=== PATIENT | female | born 1965 | race Caucasian/White ===

== ENCOUNTER 2021-01-18 16:59 | Outpatient (RCR) | payer BC, SELFPAY ==
[2016-12-01 12:44] VITALS: BMI 32.2
[2021-01-18] MEDS: COVID-19 VACC, MRNA(PFIZER)/PF 30 MCG/0.3 ML SYRINGE IM (14:48)
[2021-02-08] MEDS: COVID-19 VACC, MRNA(PFIZER)/PF 30 MCG/0.3 ML SYRINGE IM (14:26)
== END 2021-01-18 23:59 ==
LOC: IMMUN 16:59
PROVIDERS: PCP Family Medicine; Visit Provider Family Medicine
DX: Z23 Encounter for immunization (principal)
CPT/HCPCS: 0001A; 0002A; 91300

== ENCOUNTER → 2021-09-19 09:44 | Outpatient (CLI) | payer OTHER, SELFPAY ==
[2021-09-19 13:02] LABS: Anion Gap 5 (5-15); BUN 16 mg/dL (7-18); BUN/Creat Ratio 19.1 RATIO (10-20); Calcium,Total 9.1 mg/dL (8.5-10.1); Chloride 110 mmol/L (98-107); Cholesterol 140 mg/dL (200); Creatinine, Serum 0.84 mg/dL (0.55-1.02); EST Glomerular Filtration Rate 74 mL/min (>60); Est Glom Filt Rate - Afr Amer 90 mL/min (>60); Glucose 101 mg/dL (74-106); High Density Lipoprotein 57 mg/dL; Potassium 3.8 mmol/L (3.5-5.1); Sodium Level 141 mmol/L (136-145); Triglycerides 63 mg/dL; Very Low Density Lipoprotein 13 mg/dL (5-40)
== END ==
PROVIDERS: PCP Family Medicine; Referring Provider Family Medicine; Visit Provider Family Medicine
DX: I10 Essential (primary) hypertension (principal)
CPT/HCPCS: 36415; 80048; 80061

== ENCOUNTER → 2022-04-02 | Outpatient (CLI) | payer OTHER, SELFPAY ==
[2022-04-02 12:47] LABS: Anion Gap 3 (5-15); BUN 22 mg/dL (7-18); Calcium,Total 9.2 mg/dL (8.5-10.1); Chloride 109 mmol/L (98-107); Creatinine, Serum 0.96 mg/dL (0.55-1.02); EST Glomerular Filtration Rate 63 mL/min (>60); Est Glom Filt Rate - Afr Amer 77 mL/min (>60); Glucose 100 mg/dL (74-106); Potassium 4.1 mmol/L (3.5-5.1); Sodium Level 140 mmol/L (136-145)
== END | disposition home or self-care (01) ==
LOC: MTLAB 10:35
PROVIDERS: PCP Family Medicine; Referring Provider Family Medicine; Visit Provider Family Medicine
DX: Z00.00 Encounter for general adult medical examination without abnormal findings (principal)
CPT/HCPCS: 36415; 80048

== ENCOUNTER → 2022-04-24 | Outpatient (CLI) | payer OTHER, SELFPAY ==
[2022-04-29 16:33] LABS: HPV HC, High Risk N
== END | disposition home or self-care (01) ==
LOC: LABSPEC 15:34
PROVIDERS: PCP Family Medicine; Referring Provider Family Medicine; Visit Provider Nurse Practitioner Family
DX: Z12.4 Encounter for screening for malignant neoplasm of cervix (principal)
CPT/HCPCS: 87624; 88175; G0145

== ENCOUNTER → 2022-08-19 | Outpatient (CLI) | payer OTHER, SELFPAY ==
--- NOTE | 2022-08-19 11:55 | BI_ITS ---
MAMMOGRAPHY - BILATERAL SCREENING REASON FOR EXAM: Female, 57 years old. Routine annual screening examination. PERTINENT HISTORY: Aunt with breast cancer. TECHNIQUE: Digital bilateral breast jaymie (3D mammographic acquisition) in the CC and MLO projections. 2-D mediolateral oblique (MLO) and craniocaudad (CC) views of both breasts were obtained. CAD: Full Field Digital Mammography with Computer Added Detection was performed. COMPARISON: Comparison is made with prior examination 12/28/2020. FINDINGS: Breast Composition: The breasts are almost entirely fatty. There are no dominant masses or suspicious calcifications. No other significant abnormalities are identified. There has been no significant change since the prior study. BI/SCRN MAMM (CAD)W/JAYMIE BILAT IMPRESSION: Stable bilateral screening mammogram. Yearly follow-up mammogram recommended. (A) ASSESSMENT CATEGORY: BIRADS Category 1: Negative. A letter regarding these results will be sent to the patient by the facility within 30 days. Approximately 10% of breast cancers are not detected by mammography. A normal mammogram should not delay biopsy of a clinically suspicious abnormality. [id number] Electronically Signed: Samuel Bauer MD at 12:38 EDT ,
== END | disposition home or self-care (01) ==
LOC: OPBI 11:54
PROVIDERS: PCP Family Medicine; Visit Provider Family Medicine
DX: Z12.31 Encounter for screening mammogram for malignant neoplasm of breast (principal); Z80.3 Family history of malignant neoplasm of breast
CPT/HCPCS: 77063; 77067

== ENCOUNTER → 2022-10-30 | Outpatient (CLI) | payer OTHER, SELFPAY ==
[2022-10-30 13:02] LABS: Anion Gap 6 (5-15); BUN 14 mg/dL (7-18); BUN/Creat Ratio 15.4 RATIO (10-20); Chloride 106 mmol/L (98-107); Cholesterol 171 mg/dL (200); Creatinine, Serum 0.91 mg/dL (0.55-1.02); EST Glomerular Filtration Rate 67 mL/min (>60); Est Glom Filt Rate - Afr Amer 81 mL/min (>60); Glucose 104 mg/dL (74-106); High Density Lipoprotein 67 mg/dL; Potassium 3.7 mmol/L (3.5-5.1); Sodium Level 140 mmol/L (136-145); Triglycerides 57 mg/dL; Very Low Density Lipoprotein 11 mg/dL (5-40)
== END | disposition home or self-care (01) ==
LOC: MTLAB 09:33
PROVIDERS: PCP Family Medicine; Referring Provider Family Medicine; Visit Provider Family Medicine
DX: Z00.00 Encounter for general adult medical examination without abnormal findings (principal)
CPT/HCPCS: 36415; 80048; 80061

== ENCOUNTER → 2022-11-11 | Outpatient (CLI) | payer OTHER, SELFPAY ==
[2022-11-11 10:40] LABS: Bacteria 0 SEEN /hpf (None Seen); Mucous, Urine 0 SEEN /hpf (<or=2+)
[2022-11-11 12:23] LABS: Color, Urine Straw (Yellow); Glucose, Dipstick Normal (Normal); Ketone-Dipstick Negative (Negative); Leukocyte Esterase-Dipstick 25 /ul (Negative); Nitrite-Dipstick Negative (Negative); Occult Blood-Urine 25 /ul (Negative); Protein-Dipstick Negative (Negative); Specific Gravity, Urine 1.005 (1.002-1.030); Urine Bilirubin Dipstick Negative (Negative); Urine Clarity Sl. Cloudy (Clear); Urine Urobilinogen Normal (Normal)
[2022-11-11 12:37] LABS: Red Blood Cells-Urine 0-5 SEEN /hpf (0-5); Squamous Epithelial Cells - UA 0-5 SEEN /hpf (5-10); White Blood Cells 0-5 SEEN /hpf (0-5)
== END | disposition home or self-care (01) ==
PROVIDERS: PCP Family Medicine; Referring Provider Family Medicine; Visit Provider Family Medicine
DX: R39.9 Unspecified symptoms and signs involving the genitourinary system (principal)
CPT/HCPCS: 81001; 87086; 87088

== ENCOUNTER → 2023-05-12 | Outpatient (CLI) | payer OTHER, SELFPAY ==
[2023-05-12 10:26] LABS: AST(SGOT) 29 U/L (15-37); Alanine Aminotransfer ALT/SGPT 34 U/L (13-56); Albumin, Serum 3.8 g/dL (3.2-5.0); Alkaline Phosphatase 67 U/L (45-117); Anion Gap 4 (5-15); BUN 15 mg/dL (7-18); BUN/Creat Ratio 15.3 RATIO (10-20); Chloride 106 mmol/L (98-107); Cholesterol 141 mg/dL (200); Creatinine, Serum 0.98 mg/dL (0.55-1.02); EST Glomerular Filtration Rate 62 mL/min (>60); Est Glom Filt Rate - Afr Amer 75 mL/min (>60); Globulin 3.8 g/dL (2.2-4.2); Glucose 99 mg/dL (74-106); High Density Lipoprotein 67 mg/dL; Potassium 3.9 mmol/L (3.5-5.1); Protein, Total 7.6 g/dL (6.4-8.2); Sodium Level 136 mmol/L (136-145); Triglycerides 39 mg/dL; Very Low Density Lipoprotein 8 mg/dL (5-40)
== END | disposition home or self-care (01) ==
LOC: MTLAB 08:37
PROVIDERS: PCP Family Medicine; Referring Provider Family Medicine; Visit Provider Family Medicine
DX: I10 Essential (primary) hypertension (principal)
CPT/HCPCS: 36415; 80053; 80061

== ENCOUNTER → 2023-10-13 | Outpatient (CLI) | payer OTHER, SELFPAY ==
--- NOTE | 2023-10-13 10:22 | BI_ITS ---
MAMMOGRAPHY - BILATERAL SCREENING REASON FOR EXAM: Female, 58 years old. Routine annual screening examination. PERTINENT HISTORY: Aunt with breast cancer. TECHNIQUE: Digital bilateral breast jaymie (3D mammographic acquisition) in the CC and MLO projections. 2-D mediolateral oblique (MLO) and craniocaudad (CC) views of both breasts were obtained. CAD: Full Field Digital Mammography with Computer Added Detection was performed. COMPARISON: Comparison is made with prior study August 19, 2022. FINDINGS: Breast Composition: The breasts are almost entirely fatty. There are no dominant masses or suspicious calcifications. No other significant abnormalities are identified. There has been no significant change since the prior study. BI/SCRN MAMM (CAD)W/JAYMIE BILAT IMPRESSION: Stable bilateral screening mammogram. Yearly follow-up mammogram recommended. (A) ASSESSMENT CATEGORY: BIRADS Category 1: Negative. A letter regarding these results will be sent to the patient by the facility within 30 days. Approximately 10% of breast cancers are not detected by mammography. A normal mammogram should not delay biopsy of a clinically suspicious abnormality. [id number] Electronically Signed: Samuel Bauer MD at 11:39 EST ,
== END | disposition home or self-care (01) ==
LOC: OPBI 10:21
PROVIDERS: PCP Family Medicine; Referring Provider Family Medicine; Visit Provider Family Medicine
DX: Z12.31 Encounter for screening mammogram for malignant neoplasm of breast (principal); Z80.3 Family history of malignant neoplasm of breast
CPT/HCPCS: 77063; 77067

== ENCOUNTER → 2023-11-14 | Outpatient (CLI) | payer OTHER, SELFPAY ==
--- OUTSIDE RECORDS SUMMARY | 2023-11-14 08:58 | XMS RPT_ITS | CCD ---
Author Name Unknown Address [address] [facility] [address] [place] [address] Organization [facility] Care Team Providers Care Data Steward Name Role Phone YINA, LETICIA DPM Admitting Unavailable HORN, LETICIA DPM Attending Unavailable HORN, LETICIA DPM Primary Care Unavailable CEBUL, CRISTOPHER III Consulting Unavailable PROVIDER, UNKNOWN Consulting Unavailable HORN, LETICIA DPM Admitting Unavailable HORN, LETICIA DPM Attending Unavailable HORN, LETICIA DPM Primary Care Unavailable CEBUL, CRISTOPHER III Consulting Unavailable PROVIDER, UNKNOWN Consulting Unavailable BLANQUITA AMADOR Admitting Unavailable BLANQUITA AMADOR Attending Unavailable BLANQUITA AMADOR Primary Care Unavailable CEBUL, CRISTOPHER III Consulting Unavailable PROVIDER, UNKNOWN Consulting Unavailable Problems Problem Classification Problem Date Documented Da te Episodic/Chronic Immunizations and screening for infectious disease (3 sources) Encounter for screening for other viral diseases; Translations: [Encounter for screening for other viral diseases] Onset: 08-10-2020 Episodic Results Test Name Value Interpretation Reference Range Facil ity Encounters Encounter Date Encounter Type Care Provider Facility Start: 08-10-2020 End: 08-10-2020 Patient encounter procedure BLANQUITA AMADOR [facility] Start: 10-15-2019 End: 10-15-2019 Patient encounter procedure LETICIA ALEXIS [facility] Start: 10-07-2019 End: 10-07-2019 Patient encounter procedure LETICIA DPM [facility] Payers Date Payer Category Payer Unknown [id number] 1965 Unknown [id number] 1965 Unknown [id number] Unknown [id number] Clinical Note 09-18-2021 Note Date & Type Note Facility 09-18-2021 Note Patient Outreach ([facility]) DANIELHYACINTH CAREY ([id number]) 1965 F Date Time Provider Department 09/18/21 NELY NEELY During your visit today, we recorded the following information about you: Nely Neely Population Health Navigator 09/18/2021 10:44 AM Signed POPULATION HEALTH NAVIGATION OUTREACH Action/ I left a voice mail and a my chart message re: pcp No care everywhere Contact made with patient or family member? NO Pt identified by name and : NO Outreach Outcome/Action Unable to reach patient: Left message [employer] message sent Reason for Outreach Attribution: Provider Off-boarding Payer: Payor: MP / Plan: BLUE ACCESS PPO / Product Type: PPO / Care Gap Reviewed:: Reminder: Reminder note to check Health Maintenance for items below Health Maintenance items due: COVID-19 VACCINE(1) Never done SHINGRIX VACCINE(1 of 2) Never done INFLUENZA(1) due on 07/04/2021 Advanced Directives Completed: Have you ever planned for future healthcare decisions with a power of patent prosecution attorney, living will, or advance directives? No. Please bring a copy to your next appointment or email to Referrals: N/A Message Sent to Practice: NO Navigation Signature: Nely Neely Population Health Navigator September 18, 2021 10:44 AM Nely Neely Population Health Navigator 09/18/2021 11:43 AM Signed POPULATION HEALTH NAVIGATION OUTREACH Action/ Patient called back and states she has another pcp since her insurance has changed Updated pcp field Contact made with patient or family member? YES Pt identified by name and : YES Outreach Outcome/Action Spoke to patient or caregiver: PCP confirmed / updated Patient declined Reason for Outreach Attribution: Provider Off-boarding Payer: Payor: MP / Plan: BLUE ACCESS PPO / Product Type: PPO / Care Gap Reviewed:: Reminder: Reminder note to check Health Maintenance for items below Health Maintenance items due: COVID-19 VACCINE(1) Never done SHINGRIX VACCINE(1 of 2) Never done INFLUENZA(1) due on 07/04/2021 Advanced Directives Completed: Have you ever planned for future healthcare decisions with a power of patent prosecution attorney, living will, or advance directives? No. Please bring a copy to your next appointment or email to Referrals: N/A Message Sent to Practice: NO Navigation Signature: Nely Neely Population Health Navigator September 18, 2021 11:42 AM Allergies As of Date: 09/18/2021 Noted Allergy Reaction EFFEXOR (VENLAFAXINE ANALOGUES) 04/20/2018 1 - Mental Status Change ERYTHROMYCIN 10/09/2005 8 - GI Upset PRILOSEC (OMEPRAZOLE) 10/09/2005 Comments: abdominal bloating psuedoephrine [Other] 10/09/2005 TCN (TETRACYCLINES) 10/09/2005 Comments: yeast infections Date Reviewed: 01/11/2021 Reviewed by: Jayna Payton MA - Fully Assessed Reason for Visit: Population Health Navigation Outreach [3910] Cmt: Offboarding Prescriptions as of 09/18/2021 - pantoprazole DR (PROTONIX) 20 mg tablet Take 1 tablet by mouth daily before breakfast. Take on empty stomach, 1/2 hr before meal. Process through [facility], not insurance - lisinopril (ZESTRIL, PRINIVIL) 5 mg tablet Take 1 tablet by mouth once daily. - acetaminophen (TYLENOL ORAL) Take by mouth as needed. Meds Comments as of 01/11/2021: OTC advil PRN January 11, 2021 Jayna Payton MA Problem List As Of Date 09/18/2021 Noted Resolved Abdominal pain, right upper quadrant [R10.11] 12/08/2006 02/09/2013 BENIGN HYPERTENSION [I10] 12/08/2006 HIATAL HERNIA [K44.9] 01/15/2007 GASTRITIS ANTRAL( W/O Hemorrhage) [K29.60] 01/15/2007 05/08/2019 Abdominal pain, right lower quadrant [R10.31] 01/15/2007 02/09/2013 DYSMETABOLIC SYNDROME X [E88.81] 12/30/2007 PERIORAL DERMATITIS///ROSACEA [L71.9] 02/23/2008 11/02/2015 Other acne [L70.8] 02/23/2008 05/08/2019 Seborrheic dermatitis, unspecified [L21.9] 02/23/2008 11/02/2015 Contact dermatitis and other eczema, due to uns*02/23/2008 11/02/2015 Other chronic dermatitis due to solar radiation*02/23/2008 11/02/2015 SOLAR LENGINES///DYSCHROMIA OTHER [L81.9] 02/23/2008 11/02/2015 Candidiasis of vulva and vagina [B37.3] 02/23/2008 02/09/2013 Potassium deficiency [E87.6] 01/11/2011 05/08/2019 GERD (gastroesophageal reflux disease) [K21.9] 09/10/2011 Obesity, Class I, BMI 30-34.9 [E66.9] 04/17/2018 Retinal hemorrhage of right eye [H35.61] 05/08/2019 Thoracic outlet syndrome [G54.0] 01/11/2021 Encounter Status:Closed by CHIN POPULATION HEALTH NAVIGATORNELY on 09/18/21 [facility] Progress note 09-18-2021 Note Date & Type Note Facility 09-18-2021 Note HNO ID: [id number] Author: Nely Andino Health Navigator Service: ? Author Type: ? Type: Progress Notes Filed: 09/18/2021 11:43 AM Note Text: POPULATION HEALTH NAVIGATION OUTREACH Action/FYI Patient called back and states she has another pcp since her insurance has changed Updated pcp field Contact made with patient or family member? YES Pt identified by name and : YES Outreach Outcome/Action Spoke to patient or caregiver: PCP confirmed / updated Patient declined Reason for Outreach Attribution: Provider Off-boarding Payer: Payor: ANTHEM / Plan: BLUE ACCESS PPO / Product Type: PPO / Care Gap Reviewed:: Reminder: Reminder note to check Health Maintenance for items below Health Maintenance items due: COVID-19 VACCINE(1) Never done SHINGRIX VACCINE(1 of 2) Never done INFLUENZA(1) due on 07/04/2021 Advanced Directives Completed: Have you ever planned for future healthcare decisions with a power of patent prosecution attorney, living will, or advance directives? No. Please bring a copy to your next appointment or email to Referrals: N/A Message Sent to Practice: NO Navigation Signature: Nely Neely Population Health Navigator September 18, 2021 11:42 AM [facility] Progress note 09-18-2021 Note Date & Type Note Facility 09-18-2021 Note HNO ID: [id number] Author: Nely Neely Population Health Navigator Service: ? Author Type: ? Type: Progress Notes Filed: 09/18/2021 10:44 AM Note Text: POPULATION HEALTH NAVIGATION OUTREACH Action/FYI I left a voice mail and a my chart message re: pcp No care everywhere Contact made with patient or family member? NO Pt identified by name and : NO Outreach Outcome/Action Unable to reach patient: Left message [employer] message sent Reason for Outreach Attribution: Provider Off-boarding Payer: Payor: MP / Plan: BLUE ACCESS PPO / Product Type: PPO / Care Gap Reviewed:: Reminder: Reminder note to check Health Maintenance for items below Health Maintenance items due: COVID-19 VACCINE(1) Never done SHINGRIX VACCINE(1 of 2) Never done INFLUENZA(1) due on 07/04/2021 Advanced Directives Completed: Have you ever planned for future healthcare decisions with a power of patent prosecution attorney, living will, or advance directives? No. Please bring a copy to your next appointment or email to [email or web address] Referrals: N/A Message Sent to Practice: NO Navigation Signature: Nely Neely Population Health Navigator September 18, 2021 10:44 AM [facility] Clinical Note 01-15-2021 Note Date & Type Note Facility 01-15-2021 Note Patient Outreach ([facility]) DANIELHYACINTH Peralta ([id number]) 1965 F Date Time Provider Department 01/15/21 BRIANNA DARBY (PSS) IN[facility] During your visit today, we recorded the following information about you: Brianna Darby Pss 01/15/2021 10:35 AM Signed POPULATION HEALTH NAVIGATION OUTREACH Action/FYI Mamm completed 12/28/20. No need to contact. Contact made with patient or family member? NO Pt identified by name and : NO Outreach Outcome/Action Mamm completed 12/28/20. Reason for Outreach Care Gap or Scheduling/Wellness visits Payer: Payor: MP / Plan: [employer] ACCESS PPO / Product Type: PPO / Care Gap Reviewed:: Breast Cancer screening Reminder: Reminder note to check Health Maintenance for items below Health Maintenance items due: INFLUENZA(1) due on 07/04/2020 Advanced Directives Completed: Have you ever planned for future healthcare decisions with a power of patent prosecution attorney, living will, or advance directives? Referrals: Message Sent to Practice: Navigation Signature: Brianna Darby Pss January 15, 2021 10:34 AM Allergies As of Date: 01/15/2021 Noted Allergy Reaction EFFEXOR (VENLAFAXINE ANALOGUES) 04/20/2018 1 - Mental Status Change ERYTHROMYCIN 10/09/2005 8 - GI Upset PRILOSEC (OMEPRAZOLE) 10/09/2005 Comments: abdominal bloating psuedoephrine [Other] 10/09/2005 TCN (TETRACYCLINES) 10/09/2005 Comments: yeast infections Date Reviewed: 01/11/2021 Reviewed by: Jayna Payton MA - Fully Assessed Reason for Visit: Population Health Navigation Outreach [3910] Cmt: deferred care Prescriptions as of 01/15/2021 Sig: PANTOPRAZOLE 20 MG TABLET,DEL* Take 1 tablet by mouth daily * LISINOPRIL 5 MG TABLET Take 1 tablet by mouth once d* TYLENOL ORAL Take by mouth as needed. Problem List As Of Date 01/15/2021 Noted Resolved Abdominal pain, right upper quadrant [R10.11] 12/08/2006 02/09/2013 BENIGN HYPERTENSION [I10] 12/08/2006 HIATAL HERNIA [K44.9] 01/15/2007 GASTRITIS ANTRAL( W/O Hemorrhage) [K29.60] 01/15/2007 05/08/2019 Abdominal pain, right lower quadrant [R10.31] 01/15/2007 02/09/2013 DYSMETABOLIC SYNDROME X [E88.81] 12/30/2007 PERIORAL DERMATITIS///ROSACEA [L71.9] 02/23/2008 11/02/2015 Other acne [L70.8] 02/23/2008 05/08/2019 Seborrheic dermatitis, unspecified [L21.9] 02/23/2008 11/02/2015 Contact dermatitis and other eczema, due to uns*02/23/2008 11/02/2015 Other chronic dermatitis due to solar radiation*02/23/2008 11/02/2015 SOLAR LENGINES///DYSCHROMIA OTHER [L81.9] 02/23/2008 11/02/2015 Candidiasis of vulva and vagina [B37.3] 02/23/2008 02/09/2013 Potassium deficiency [E87.6] 01/11/2011 05/08/2019 GERD (gastroesophageal reflux disease) [K21.9] 09/10/2011 Obesity, Class I, BMI 30-34.9 [E66.9] 04/17/2018 Retinal hemorrhage of right eye [H35.61] 05/08/2019 Thoracic outlet syndrome [G54.0] 01/11/2021 Encounter Status:Closed by BRIANNA LANDRY on 01/15/21 [facility] Progress note 01-15-2021 Note Date & Type Note Facility 01-15-2021 Note HNO ID: [id number] Author: Brianna Espinoza Service: ? Author Type: ? Type: Progress Notes Filed: 01/15/2021 10:35 AM Note Text: POPULATION HEALTH NAVIGATION OUTREACH Action/FYI Mamm completed 12/28/20. No need to contact. Contact made with patient or family member? NO Pt identified by name and : NO Outreach Outcome/Action Mamm completed 12/28/20. Reason for Outreach Care Gap or Scheduling/Wellness visits Payer: Payor: MP / Plan: BLUE ACCESS PPO / Product Type: PPO / Care Gap Reviewed:: Breast Cancer screening Reminder: Reminder note to check Health Maintenance for items below Health Maintenance items due: INFLUENZA(1) due on 07/04/2020 Advanced Directives Completed: Have you ever planned for future healthcare decisions with a power of patent prosecution attorney, living will, or advance directives? Referrals: Message Sent to Practice: Navigation Signature: Brianna Darby Pss January 15, 2021 10:34 AM [facility] Progress note 01-11-2021 Note Date & Type Note Facility 01-11-2021 Note HNO ID: [id number] Author: Cristopher Ly III Service: ? Author Type: Physician Type: Progress Notes Filed: 01/11/2021 12:47 PM Note Text: SUBJECTIVE: This is a 55 year old female that is here today for Chronic Medical Conditions. and wellness exam. 1. hypertension--tolerates medication well 2. impaired fasting glucose. . 3. Mother has severe diabetes mellitus with multiple co-morbidities. 4. pain from R shoulder radiating to distal to R elbow. Some numbness R hand, tiffany 4th and 5th fingers. 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 Hx of R thoracic syndrome. 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 Hx of R thoracic outlet syndrome. No neck pain. 5. GERD exacerbation after spicy food--resolved now and taking protonix PAST MEDICAL HISTORY Diagnosis Date - Benign hypertensive heart disease without heart failure - Cholecystitis 12/08/2006 - Helicobacter pylori gastritis 2002 - Hypertension - Potassium deficiency - Retinal hemorrhage of right eye 05/08/2019 Current Outpatient Medications on File Prior to Visit Medication Sig - pantoprazole DR (PROTONIX) 20 mg tablet Take 1 tablet by mouth daily before breakfast. Take on empty stomach, 1/2 hr before meal. Process through [facility], not insurance - lisinopril (ZESTRIL, PRINIVIL) 5 mg tablet Take 1 tablet by mouth once daily. - acetaminophen (TYLENOL ORAL) Take by mouth as needed. No current facility-administered medications on file prior to visit. FAMILY HISTORY Problem Relation Age of Onset - Diabetes Mother - Hypertension Mother - other (myocardial infarction) Mother 75 quad bypass 02/04/13 - Hypertension Father - DVT Father - Osteoporosis Brother - No Known Problems Son - Breast Cancer Paternal Aunt - No Known Problems Maternal Grandmother - Diabetes Maternal Grandfather - Hypertension Maternal Grandfather - Stroke Maternal Grandfather - Hypertension Paternal Grandmother - No Known Problems Paternal Grandfather Social History Tobacco Use - Smoking status: Never Smoker - Smokeless tobacco: Never Used Substance Use Topics - Alcohol use: Yes Comment: socially - Drug use: No BP 122/70 Pulse 76 Resp 16 Ht 165.1 cm (5' 5 ) Wt 87.5 kg (193 lb) LMP 08/14/2015 BMI 32.12 kg/m? . OBJECTIVE: APPEARANCE Well appearing, alert, in no acute distress, well-hydrated, well nourished. NECK Supple, no adenopathy; thyroid symmetric, normal size, no bruits HEART RRR with normal S1 and S2, no murmurs, no gallops, no JVD appreciated LUNG clear to auscultation ABDOMEN bowel sounds normoactive, no bruits, soft, non-tender, non-distended, without organomegaly or palpable masses, no tenderness to palpation EXTREMITIES pain post R shoulder when R palm placed on top of L shoulder NEURO Awake, alert and oriented x 3, Normal gait and No involuntary motions. Lab Results for HYACINTH CORRIGAN ( ) as of 01/11/2021 10:19 Ref. Range 01/03/2021 09:22 Sodium Latest Ref Range: 136 - 144 mmol/L 142 Potassium Latest Ref Range: 3.7 - 5.1 mmol/L 4.2 Chloride Latest Ref Range: 97 - 105 mmol/L 106 (H) CO2 Latest Ref Range: 22 - 30 mmol/L 28 BUN Latest Ref Range: 7 - 21 mg/dL 20 Creatinine Latest Ref Range: 0.58 - 0.96 mg/dL 0.86 Glucose Latest Ref Range: 74 - 99 mg/dL 104 (H) Protein, Total Latest Ref Range: 6.3 - 8.0 g/dL 7.4 Calcium Latest Ref Range: 8.5 - 10.2 mg/dL 9.4 Albumin Latest Ref Range: 3.9 - 4.9 g/dL 4.3 Bilirubin, Total Latest Ref Range: 0.2 - 1.3 mg/dL 0.5 Alkaline Phosphatase Latest Ref Range: 34 - 123 U/L 64 ALT Latest Ref Range: 7 - 38 U/L 28 AST Latest Ref Range: 13 - 35 U/L 28 Anion Gap Latest Ref Range: 9 - 18 mmol/L 8 (L) eGFR- Unknown >60 eGFR-All Other Races Latest Units: . >60 Cholesterol, Total Latest Ref Range: <200 mg/dL 150 Triglyceride Latest Ref Range: <150 mg/dL 36 Fasting Time Latest Units: hrs 14 HDL Cholesterol Latest Ref Range: >39 mg/dL 64 LDL Cholesterol Latest Ref Range: <100 mg/dL 79 VLDL Cholesterol Latest Ref Range: <30 mg/dL 7 TC:HDL Ratio Latest Ref Range: <5.10 2.34 LDL:HDL Ratio Latest Ref Range: <2.54 1.23 Non HDL Cholesterol Latest Ref Range: <130 mg/dL 86 ASSESSMENT: hypertension-at goal impaired fasting glucose R thoracic outlet syndrome GERD-well controlled PLAN: healthy diet and regular exercise same medications rest right arm as able consider PT to evaluate and treat right shoulder wellness form completed Cristopher Ly III MD Medical Decision Making: Problems: Moderate: 2+ stable chronic illnesses and 1+ chronic illnesses with change Data: Unique test result(s) reviewed: 3+ Risk: Moderate: Drug management Medical Decision Making Level: 4 - Moderate Cristopher Ly III MD [facility] Clinical Note 12-28-2020 Note Date & Type Note Facility 12-28-2020 Note ADDITIONAL PROCEDURES PRESENT Specimen originated from [facility] Specimen #: [id number] Submitting Physician: ANNA AMADOR CNP SPECIMEN SUBMITTED A: CERVICAL, SCREENING, FLUID FINAL DIAGNOSIS A. CERVICAL, SCREENING, FLUID Satisfactory for interpretation. Negative for intraepithelial lesion or malignancy. This specimen has been analyzed by the ThinPrep Imaging System, an automated imaging and review system, which assists the laboratory in evaluating cells on ThinPrep Pap tests. Following automated imaging, selected clark from every slide are reviewed by a metal hanger. YARELY Patel(ASCP) (Electronic Signature) ADDITIONAL PROCEDURE(S) HUMAN PAPILLOMA VIRUS Date Ordered: 01/01/2021 Date Reported: 01/02/2021 Procedure Results and Interpretation Negative for HPV DNA high risk type 16 by PCR. Negative for HPV DNA high risk type 18 by PCR. Negative for HPV DNA high risk types: 31,33,35,39,45,51,52,56,58,59,66,68 by PCR. This test was developed and its performance characteristics determined by [facility]'s [facility] [place] ([facility]). It has not been cleared or approved by the FDA. [facility] is regulated under CLIA as qualified to perform high-complexity testing. This test is used for clinical purposes. It should not be regarded as investigational or for research. CLINICAL DATA ROUTINE EXAM, HPV Testing: Yes, automatic HPV patients over 30 Date of Last Menstrual Period: Postmenopausal STAINS A: CERVICAL, SCREENING, FLUID THIN PREP LEGGER PRESS OPERATOR Mario Dumont M.D., Road Machine Runner Date of Report: 01/04/2021 Date of Procedure: 12/28/2020 Date of Receipt: 01/01/2021 Submitted by: ANNA AMADOR CNP Location: [facility] Diagnostic interpretation performed at [facility], [address] [place] [address]. CLIA Number: [id number] The Pap Smear is a screening test for cervical cancer. False negative results occur with all screening tests, emphasizing the need for rescreening at recommended intervals, and clinical correlation. [facility] Progress note 12-28-2020 Note Date & Type Note Facility 12-28-2020 Note HNO ID: [id number] Author: Anna Amador Service: ? Author Type: Nurse Practitioner Type: Progress Notes Filed: 12/28/2020 3:45 PM Note Text: Hyacinth is a 55 year old who presents for an annual gynecologic exam without complaints. Has had hiatal hernia for 14 years and now thinks it needs to be repaired. 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 Plans to make appointment with PCP. Postmenopausal:?Yes since age?51 HRT use:?No. Last Pap:?2014?normal?? HPV:?2014?negative History of abnormal pap:?No Last mammogram:??today?pending History of abnormal mammogram:?No Sexually active: No Hot flashes: No Night sweats: Yes, improving OB History T1 L1 SAB0 TAB0 Ectopic0 Multiple0 Live Births0 PAST MEDICAL HISTORY Diagnosis Date - Benign hypertensive heart disease without heart failure - Cholecystitis 12/08/2006 - Helicobacter pylori gastritis 2002 - Hypertension - Potassium deficiency - Retinal hemorrhage of right eye 05/08/2019 PAST SURGICAL HISTORY Procedure Laterality Date - CATARACT EXTRACTION HX 07/2013: 08/2014 both eyes - COLONOSCOP W/ OR W/O BRS SPEC 12/07/15 Colonoscopy - EGD W/O [facility] SPECIMEN W/BX 2002 Hiatal hernia, minimal antral gastritis - FOOT SURGERY HX Right 10/15/2019 - LAP CHOLECYSTECT/CHOLANGIOGRAPHY 02/17/07 - RE-REPAIR DETACHED RETINA 04/2019 FAMILY HISTORY Problem Relation Age of Onset - Diabetes Mother - Hypertension Mother - other (myocardial infarction) Mother 75 quad bypass 02/04/13 - Hypertension Father - DVT Father - No Known Problems Brother - No Known Problems Son - Breast Cancer Paternal Aunt - No Known Problems Maternal Grandmother - Diabetes Maternal Grandfather - Hypertension Maternal Grandfather - Stroke Maternal Grandfather - Hypertension Paternal Grandmother - No Known Problems Paternal Grandfather SOCIAL HISTORY Social History Tobacco Use - Smoking status: Never Smoker - Smokeless tobacco: Never Used Substance Use Topics - Alcohol use: Yes Comment: socially - Drug use: No REVIEW OF SYSTEMS Abdomen: No abdominal pain, nausea, vomiting, diarrhea, or constipation. No bloating, early satiety, indigestion, or increased flatulence. Bladder: No dysuria, gross hematuria, urinary frequency, urinary urgency, or incontinence Breast: No breast lumps, nipple d/c, overlying skin changes, redness or skin retraction Allergies and current medication updated:Yes EXAM: BP 120/82 Ht 5' 5 (1.65m) Wt 194 lb (88.0kg) LMP 08/14/2015 BMI 32.28 kg/(m2). GENERAL: pleasant, female in no apparent distress HEENT: Normocephalic, atraumatic, mucus membranes moist and no lesions NECK: Supple, full range of motion, no adenopathy and thyroid normal DERMATOLOGY: Normal, without lesions, non-icteric and non-hirsute BREAST: soft, non-tender, symmetric, no dominant mass, normal nipple-areolar complex, no lymphadenopathy and no nipple discharge CHEST: Normal inspiratory effort ABDOMEN: soft, non-tender and no masses PELVIC: external genitalia normal, normal Bartholin's glands, urethra, Lamkin's glands, no vulvar lesions, no cervical lesions, physiologic discharge present, normal appearing perineal body and perianal region BIMANUAL: uterus normal size, shape and consistency, no adnexal masses and non-tender RECTOVAGINAL: deferred. NEURO: alert and oriented x3,exam grossly non-focal EXTREMITIES: normal ASSESSMENT/PLAN: 1) Health maintenance: Pap done with HPV. Mammogram ordered Mammogram up to date Nutrition, exercise and routine health maintenance exams reviewed. Calcium/Vitamin D supplementation information provided. Colon cancer screening: up to date with screening 2) Follow up one year or sooner as needed Anna Amador APRN.[facility] Progress note 12-28-2020 Note Date & Type Note Facility 12-28-2020 Note HNO ID: [id number] Author: Marshall Dunbar (Tech) Service: ? Author Type: Government Guard Type: Progress Notes Filed: 12/28/2020 3:07 PM Note Text: Radiology Service Progress Note PATIENT NAME: Hyacinth Corrigan DATE OF SERVICE: December 28, 2020 TIME: 2:46 PM PATIENT IDENTITY VERIFICATION COMPLETED USING TWO (2) IDENTIFIERS: Name and Date of confirmed by patient verbally. FALL SCREENING: Has the patient had 2 falls in the last year or 1 fall with injury or currently using an Ambulatory Assistive Device (Walker, Cane, Wheelchair, Crutches, etc.)? No PATIENT GENDER DATA: Female. status: : No status: NO. PATIENT RELEVANT IMPLANT DATA REVIEWED: Not Applicable RADIOLOGY DEPARTMENT: Mammography PERIPHERAL IV DATA: Not applicable SIGNED BY: Marshall Dunbar December 28, 2020 2:46 PM [facility] Summary Purpose Family History No Family History Records FoundNo Family History Records FoundNo Family History Records Found Advance Directives No Advanced Directives Records FoundNo Advanced Directives Records FoundNo Advanced Directives Records Found Additional Source Comments INFORMATION SOURCE (unrecogn ized section and content) DATE CREATED AUTHOR AUTHOR'S ORGANIZ ATION 08/17/[address] [facility] DATE CREATED AUTHOR AUTHOR'S ORGANIZ ATION 11/25/2021 [facility] FOR RECORDS PERTAINING TO PATIENTS WHO ARE OR HAVE BEEN ENROLLED IN A CHEMICAL DEPENDENCY/SUBSTANCEABUSE PROGRAM, SOME INFORMATION MAY BE OMITTED. This clinical summary was aggregated from multiple sources. Caution should be exercised in using it in the provision of clinical care. This summary normalizes information from multiple sources, and as a consequence, information in this document may materially change the coding, format and clinical context of patient data. In addition, data may be omitted in some cases. CLINICAL DECISIONS SHOULD BE BASED ON THE PRIMARY CLINICAL RECORDS. [facility]. provides no warranty or guarantee of the accuracy or completeness of information in this document.
[2023-11-14 10:29] LABS: ALB/GLOB Ratio 1.1 RATIO (0.9-2.4); AST(SGOT) 24 U/L (15-37); Alanine Aminotransfer ALT/SGPT 29 U/L (13-56); Albumin, Serum 3.6 g/dL (3.2-5.0); Alkaline Phosphatase 61 U/L (45-117); Anion Gap 7 (5-15); BUN 16 mg/dL (7-18); BUN/Creat Ratio 18.4 RATIO (10-20); Calcium,Total 9.1 mg/dL (8.5-10.1); Chloride 108 mmol/L (98-107); Cholesterol 130 mg/dL (200); Creatinine, Serum 0.87 mg/dL (0.55-1.02); EST Glomerular Filtration Rate 71 mL/min (>60); Est Glom Filt Rate - Afr Amer 85 mL/min (>60); Globulin 3.3 g/dL (2.2-4.2); Glucose 102 mg/dL (74-106); High Density Lipoprotein 58 mg/dL; Potassium 4.1 mmol/L (3.5-5.1); Protein, Total 6.9 g/dL (6.4-8.2); Sodium Level 140 mmol/L (136-145); Triglycerides 56 mg/dL; Very Low Density Lipoprotein 11 mg/dL (5-40)
== END | disposition home or self-care (01) ==
LOC: MFPLAB 08:32
PROVIDERS: PCP Family Medicine; Visit Provider Family Medicine
DX: I10 Essential (primary) hypertension (principal)
CPT/HCPCS: 36415; 80053; 80061

== ENCOUNTER → 2024-10-20 | Outpatient (CLI) | payer OTHER, SELFPAY ==
--- NOTE | 2024-10-20 09:31 | BI_ITS ---
MAMMOGRAPHY - BILATERAL SCREENING REASON FOR EXAM: Female, 59 years old. Routine annual screening examination. PERTINENT HISTORY: Non-contributory. TECHNIQUE: Digital bilateral breast jaymie (3D mammographic acquisition) in the CC and MLO projections. 2-D mediolateral oblique (MLO) and craniocaudad (CC) views of both breasts were obtained. CAD: Full Field Digital Mammography with Computer Added Detection was performed. COMPARISON: Comparison is made with prior study dated October 13, 2023 and August 19, 2022. FINDINGS: Breast Composition: The breasts are almost entirely fatty. There are no dominant masses or suspicious calcifications. No other significant abnormalities are identified. There has been no significant change since the prior study. BI/SCRN MAMM (CAD)W/JAYMIE BILAT IMPRESSION: Stable bilateral screening mammogram. Yearly follow-up mammogram recommended. (A) ASSESSMENT CATEGORY: BIRADS Category 1: Negative. A letter regarding these results will be sent to the patient by the facility within 30 days. Approximately 10% of breast cancers are not detected by mammography. A normal mammogram should not delay biopsy of a clinically suspicious abnormality. [id number] Electronically Signed: Samuel Bauer MD at 10:29 EST ,
--- NOTE | 2024-10-20 09:34 | BD_ITS ---
STUDY: DUAL ENERGY X-RAY ABSORPTIOMETRY / DXA REASON FOR EXAM: Female, 59 years old. [id number] TECHNIQUE: Bone Mineral Density (BMD) measurements of lumbar spine and bilateral hips were obtained. COMPARISON: None. FINDINGS: Lumbar Spine (L1-L4): g/cm2 (1.281) / T-score (2.1) / Z-score (3.7) Findings are suggestive of normal bone density with a low fracture risk. Left Femur Total: g/cm2 (1.170) / T-score (1.9) / Z-score (2.9) Left Femoral Neck: g/cm2 (0.833) / T-score (-0.1) / Z-score (1.2) Right Femur Total: g/cm2 (1.114) / T-score (1.4) / Z-score (2.5) Right Femoral Neck: g/cm2 (0.896) / T-score (0.4) / Z-score (1.8) BD/Dexa Bone Density Study IMPRESSION: The patient is considered normal as outlined below according to World Adrian Organization (WHO) criteria with a low fracture risk. Reference Information: The T-score is the number of standard deviations above or below the standard which is normal for young adults at their peak bone mineral density. The World Health Organization (WHO) interprets the T-scores as follows: Above -1 Normal bone density Between -1 and -2.5 Osteopenia Equal to / or below -2.5 Osteoporosis As a practical clinical guideline, osteopenia may be graded as follows: Mild -1 through -1.5 Moderate -1.6 through -2.0 Severe -2.1 through -2.4 The Z-score is the number of standard deviations above or below age-matched controls. A Z-score of less than -1.5 would be considered abnormal. References: 1. NIH Osteoporosis and Related Bone Diseases www osteo.org 2. International Society for Clinical Densitometry www iscd.org 3. National Osteoporosis Foundation www nof.org Electronically Signed: Samuel Bauer MD at 8:50 EST ,
== END | disposition home or self-care (01) ==
LOC: OPBD 09:30
PROVIDERS: PCP Family Medicine; Referring Provider Family Medicine; Visit Provider Family Medicine
DX: Z12.31 Encounter for screening mammogram for malignant neoplasm of breast (principal); Z78.0 Asymptomatic menopausal state
CPT/HCPCS: 77063; 77067; 77080

== ENCOUNTER → 2024-11-16 | Outpatient (CLI) | payer OTHER, SELFPAY ==
[2024-11-16 13:06] LABS: AST(SGOT) 27 U/L (15-37); Alanine Aminotransfer ALT/SGPT 35 U/L (13-56); Albumin, Serum 3.8 g/dL (3.2-5.0); Alkaline Phosphatase 72 U/L (45-117); Anion Gap 3 (5-15); BUN 16 mg/dL (7-18); BUN/Creat Ratio 16.7 RATIO (10-20); Chloride 107 mmol/L (98-107); Cholesterol 157 mg/dL (200); Creatinine, Serum 0.96 mg/dL (0.55-1.02); EST Glomerular Filtration Rate 63 mL/min (>60); Est Glom Filt Rate - Afr Amer 76 mL/min (>60); Globulin 3.8 g/dL (2.2-4.2); Glucose 113 mg/dL (74-106); High Density Lipoprotein 59 mg/dL; Potassium 3.6 mmol/L (3.5-5.1); Protein, Total 7.6 g/dL (6.4-8.2); Sodium Level 138 mmol/L (136-145); Triglycerides 66 mg/dL; Very Low Density Lipoprotein 13 mg/dL (5-40)
== END | disposition home or self-care (01) ==
LOC: MTLAB 09:21
PROVIDERS: PCP Family Medicine; Referring Provider Family Medicine; Visit Provider Family Medicine
DX: Z00.00 Encounter for general adult medical examination without abnormal findings (principal)
CPT/HCPCS: 36415; 80053; 80061

== ENCOUNTER → 2025-05-19 | Outpatient (CLI) | payer OTHER, SELFPAY | END | disposition home or self-care (01) | LOC: MTLAB 09:02 | PROVIDERS: PCP Family Medicine; Referring Provider Family Medicine; Visit Provider Family Medicine | DX: Z00.00 Encounter for general adult medical examination without abnormal findings (principal) ==

== ENCOUNTER → 2025-05-19 | Outpatient (CLI) | payer OTHER, SELFPAY ==
--- OUTSIDE RECORDS SUMMARY | 2025-05-19 11:27 | XMS RPT_ITS | CCD ---
Author Organization [facility] Care Team Providers Care Mental Health Counselor Name Role Phone LETICIA MICHAEL DPM Admitting Unavailable HORN, LETICIA DPBrent Attending Unavailable YINA, LETICIA DPM Primary Care Unavailable CEBUL, GREGG III Consulting Unavailable PROVIDER, UNKNOWN Consulting Unavailable HORN, LETICIA DPM Admitting Unavailable HORN, LETICIA DPM Attending Unavailable HORN, LETICIA DPM Primary Care Unavailable CEBUL, GREGG III Consulting Unavailable PROVIDER, UNKNOWN Consulting Unavailable MARJORIEBLANQUITA Admitting Unavailable MARJORIE, BLANQUITA Rasmussen Attending Unavailable MARJORIEBLANQUITA Primary Care Unavailable CEBUL, GREGG III Consulting Unavailable PROVIDER, UNKNOWN Consulting Unavailable Rambo, Bandar Attending Unavailable Ricks, Bandar Primary Care Unavailable Rciks, Bandar Referring Unavailable Ricks, Bandar Attending Unavailable Ricks, Bandar Primary Care Unavailable Ricks, Bandar Referring Unavailable Ricks, Bandar Attending Unavailable Ricks, Bandar Primary Care Unavailable Ricks, Bandar Referring Unavailable Allergies Allergy Classification Reported Allergen(s) Allergy Type Date of Onset Reaction(s) Facility (8 sources) Pseudoephedrine Drug Allergy [address] [facility] (1 source) Pseudoephedrine Drug Allergy [address] [facility] Repository Medications Current Medications Medication Drug Class(es) Dates Sig (Normalized) Sig (Original) lisinopril 5 mg oral tablet (8 sources) Angiotensin Converting Enzyme Inhibitor Start: 12-01-2016 take 5 mg by mouth once daily Lisinopril Active 5 MG PO DAILY December 01, 2016 12:00am ondansetron 4 mg disintegrating oral tablet (8 sources) Serotonin-3 Receptor Antagonist Start: 12-01-2016 take 4 mg by mouth every six hours as needed Ondansetron Active 4 MG PO EVERY 6 HOURS NEEDED December 01, 2016 2:18pm pantoprazole 40 mg delayed release oral tablet (8 sources) Proton Pump Inhibitor Start: 12-01-2016 take 40 mg by mouth once daily Pantoprazole Active 40 MG PO DAILY December 01, 2016 12:00am Problems Active Problems Problem Classification Problem Date Documented Da te Episodic/Chronic Essential hypertension (1 source) Essential (primary) hypertension; Translations: [Essential (primary) hypertension] Onset: 05-13-2025 Chronic Immunizations and screening for infectious disease (3 sources) Encounter for screening for other viral diseases; Translations: [Encounter for screening for other viral diseases] Onset: 08-10-2020 Episodic Past or Other Problems Problem Classification Problem Date Documented Da te Episodic/Chronic Other screening for suspected conditions (not mental disorders or infectious disease) (1 source) Encounter for screening mammogram for malignant neoplasm of breast; Translations: [Encounter for screening mammogram for malignant neoplasm of breast] Onset: 11-22-2024 Episodic Results Test Name Value Interpretation Reference Range Facility Comprehensive Metabolic Prof [facility] 11-16-2024 Albumin [Mass/Vol] 3.8 g/dL Normal 3.2-5.0 [facility] Comment on above: Order Comment: Order Date: 10/20/24 Order Info: [id number] - CMP Order Info: [id number] - LIPID Performed By: #### L 500.4100, L500.4050 #### [facility] [address] [place], [address] Albumin/Globulin [Mass ratio] 1.0 {ratio} Normal 0.9-2.[address] [facility] Comment on above: Order Comment: Order Date: 10/20/24 Order Info: [id number] - CMP Order Info: [id number] - LIPID Performed By: #### L 500.4100, L500.4050 #### [facility] [address] [place], [address] ALK P 72 U/L Normal 45-[address] [facility] Comment on above: Order Comment: Order Date: 10/20/24 Order Info: [id number] - CMP Order Info: [id number] - LIPID Performed By: #### L 500.4100, L500.4050 #### [facility] [address] [place], [address] ALT [Catalytic activity/Vol] 35 U/L Normal 13-[address] [facility] Comment on above: Order Comment: Order Date: 10/20/24 Order Info: [id number] - CMP Order Info: [id number] - LIPID Performed By: #### L 500.4100, L500.4050 #### [facility] [address] [place], [address] AST [Catalytic activity/Vol] 27 U/L Normal 15-[address] [facility] Comment on above: Order Comment: Order Date: 10/20/24 Order Info: 07-1 - CMP Order Info: [id number] - LIPID Performed By: #### L 500.4100, L500.4050 #### [facility] [address] [place], [address] Bilirubin [Mass/Vol] 0.60 mg/dL Normal 0.20-1.00 [facility] Comment on above: Order Comment: Order Date: 10/20/24 Order Info: 07- - CMP Order Info: [id number] - LIPID Result Comment: For patients on eltrombopag therapy, use of Dimension [place] TBIL is not recommended. Performed By: #### L 500.4100, L500.4050 #### [facility] [address] [place], [address] BUN/CRE 16.7 RATIO Normal 10-[address] [facility] Comment on above: Order Comment: Order Date: 10/20/24 Order Info: [id number] - CMP Order Info: [id number] - LIPID Performed By: #### L 500.4100, L500.4050 #### [facility] [address] [place], [address] CA,Total 9.0 mg/dL Normal 8.5-10.[address] [facility] Comment on above: Order Comment: Order Date: 10/20/24 Order Info: [id number] - CMP Order Info: [id number] - LIPID Performed By: #### L 500.4100, L500.4050 #### [facility] [address] [place], [address] Chloride [Moles/Vol] 107 mmol/L Normal 98-107 [facility] Comment on above: Order Comment: Order Date: 10/20/24 Order Info: 07 - CMP Order Info: - LIPID Performed By: #### L 500.4100, L500.4050 #### [facility] [address] [place], [address] CO2 [Moles/Vol] 28.0 mmol/L Normal 21.0-32.[address] [facility] Comment on above: Order Comment: Order Date: 10/20/24 Order Info: [id number] - CMP Order Info: - LIPID Performed By: #### L 500.4100, L500.4050 #### [facility] [address] [place], [address] Creatinine [Mass/Vol] 0.96 mg/dL Normal 0.55-1.02 [facility] Comment on above: Order Comment: Order Date: 10/20/24 Order Info: [id number] - CMP Order Info: [id number] - LIPID Result Comment: The validity of the calculated GFR GFRAA in patients over 70 years has not been determined. Clinical correlation is essential. Performed By: #### L 500.4100, L500.4050 #### [facility] [address] [place], [address] EST GFR - AA 76 mL/min Normal >[address] [facility] Comment on above: Order Comment: Order Date: 10/20/24 Order Info: [id number] - CMP Order Info: [id number] - LIPID Result Comment: Afri can Vincentian GFR Calc Performed By: #### L 500.4100, L500.4050 #### [facility] [address] [place], [address] GAP 3 Low 5-[address] [facility] Comment on above: Order Comment: Order Date: 10/20/24 Order Info: [id number] - CMP Order Info: [id number] - LIPID Performed By: #### L 500.4100, L500.4050 #### [facility] [address] [place], [address] GFR/1.73 sq M.predicted among non-blacks MDRD (S/P/Bld) [Vol rate/Area] 63 mL/min/{1.73_m2} Normal >[address] [facility] Comment on above: Order Comment: Order Date: 10/20/24 Order Info: [id number] - CMP Order Info: [id number] - LIPID Result Comment: Non- GFR Calc Performed By: #### L 500.4100, L500.4050 #### [facility] [address] [place], [address] Globulin (S) [Mass/Vol] 3.8 g/dL Normal 2.2-4.2 [facility] Comment on above: Order Comment: Order Date: 10/20/24 Order Info: [id number] - CMP Order Info: [id number] - LIPID Performed By: #### L 500.4100, L500.4050 #### [facility] [address] [place], [address] Glucose [Mass/Vol] 113 mg/dL High 74-106 [facility] Comment on above: Order Comment: Order Date: 10/20/24 Order Info: [id number] - CMP Order Info: [id number] - LIPID Result Comment: Fast ing Glucose result from 100 to 125 mg/dL suggests IMPAIRED HOMEOSTASIS per A.D.A. criteria. Performed By: #### L 500.4100, L500.4050 #### [facility] [address] [place], [address] Potassium [Moles/Vol] 3.6 mmol/L Normal 3.5-5.1 [facility] Comment on above: Order Comment: Order Date: 10/20/24 Order Info: 0786- - CMP Order Info: [id number] - LIPID Performed By: #### L 500.4100, L500.4050 #### [facility] [address] [place], [address] Sodium [Moles/Vol] 138 mmol/L Normal 136-145 [facility] Comment on above: Order Comment: Order Date: 10/20/24 Order Info: 0786 - CMP Order Info: [id number] - LIPID Performed By: #### L 500.4100, L500.4050 #### [facility] [address] [place], [address] T PROT 7.6 g/dL Normal 6.4-8.[address] [facility] Comment on above: Order Comment: Order Date: 10/20/24 Order Info: [id number] - CMP Order Info: [id number] - LIPID Performed By: #### L 500.4100, L500.4050 #### [facility] [address] [place], [address] Urea nitrogen [Mass/Vol] 16 mg/dL Normal 7-[address] [facility] Comment on above: Order Comment: Order Date: 10/20/24 Order Info: 07 - CMP Order Info: [id number] - LIPID Performed By: #### L 500.4100, L500.4050 #### [facility] [address] [place], [address] Lipid Profileon 11-16-2024 Cholesterol [Mass/Vol] 157 mg/dL Normal 200 [facility] Comment on above: Order Comment: Order Date: 10/20/24 Order Info: 0786 - CMP Order Info: [id number] - LIPID Result Comment: <200 mg/dL Desirable 200-240 mg/dL Borderline >240 mg/dL High Risk Performed By: #### L 500.4100, L500.4050 #### [facility] [address] [place], [address] Cholesterol in HDL [Mass/Vol] 59 mg/dL Normal [facility] Comment on above: Order Comment: Order Date: 10/20/24 Order Info: [id number] - CMP Order Info: [id number] - LIPID Result Comment: The drugs N-Acetylcysteine and Metamizole may falsely depress this assay. Reference Range HDL <40 mg/dL Low HDL Cholesterol HDL >or= 60 mg/dL High HDL Cholesterol Performed By: #### L 500.4100, L500.4050 #### [facility] [address] [place], [address] Cholesterol in LDL [Mass/Vol] 85 mg/dL Normal 0-[address] [facility] Comment on above: Order Comment: Order Date: 10/20/24 Order Info: 0786- - CMP Order Info: [id number] - LIPID Performed By: #### L 500.4100, L500.4050 #### [facility] [address] [place], [address] Cholesterol in VLDL [Mass/Vol] 13 mg/dL Normal 5-[address] [facility] Comment on above: Order Comment: Order Date: 10/20/24 Order Info: 0786- - CMP Order Info: [id number] - LIPID Performed By: #### L 500.4100, L500.4050 #### [facility] [address] [place], [address] Triglyceride [Mass/Vol] 66 mg/dL Normal [facility] Comment on above: Order Comment: Order Date: 10/20/24 Order Info: [id number] - CMP Order Info: [id number] - LIPID Result Comment: The drugs N-Acetylcysteine and Metamizole may falsely depress this assay. Serum Triglycerides Reference Interval Normal <150 mg/dL Borderline high 150 - 199 mg/dL High 200 - 499 mg/dL Very High > or = 500 mg/dL Performed By: #### L 500.4100, L500.4050 #### [facility] [address] [place], [address] Prothrombin Time w/INRon INR Normal [facility] Comment on above: Result Comment: NOT CORRECT PT Performed By: #### L 300.3900 #### [facility] [address] [place], [address] PROTIME Normal 11.7-14.[address] [facility] Comment on above: Result Comment: NOT CORRECT PT Performed By: #### L 300.3900 #### [facility] [address] [place], [address] Dexa Bone Density Studyon Dexa Bone Density Study [facility] Imaging Services [address] [place] [address] Dexa Bone Density Study MR#: [id number] Acct: [id number] Name: HYACINTH CORRIGAN Rep #: [id number] : 1965 F 59 From: Samuel north MD PCP: Dr. Bandar Ricks MD Status: [facility] Study: Dexa Bone Density Study Date of Exam: 10/20/24 Exam# [id number] Ordering Dr: Bandar Ricks MD [id number] STUDY: DUAL ENERGY X-RAY ABSORPTIOMETRY / DXA REASON FOR EXAM: Female, 59 years old. [id number] TECHNIQUE: Bone Mineral Density (BMD) measurements of lumbar spine and bilateral hips were obtained. COMPARISON: None. FINDINGS: Lumbar Spine (L1-L4): g/cm2 (1.281) / T-score (2.1) / Z-score (3.7) Findings are suggestive of normal bone density with a low fracture risk. Left Femur Total: g/cm2 (1.170) / T-score (1.9) / Z-score (2.9) Left Femoral Neck: g/cm2 (0.833) / T-score (-0.1) / Z-score (1.2) Right Femur Total: g/cm2 (1.114) / T-score (1.4) / Z-score (2.5) Right Femoral Neck: g/cm2 (0.896) / T-score (0.4) / Z-score (1.8) BD/Dexa Bone Density Study IMPRESSION: The patient is considered normal as outlined below according to World Adrian Organization (WHO) criteria with a low fracture risk. Reference Information: The T-score is the number of standard deviations above or below the standard which is normal for young adults at their peak bone mineral density. The World Health Organization (WHO) interprets the T-scores as follows: Above -1 Normal bone density Between -1 and -2.5 Osteopenia Equal to / or below -2.5 Osteoporosis As a practical clinical guideline, osteopenia may be graded as follows: Mild -1 through -1.5 Moderate -1.6 through -2.0 Severe -2.1 through -2.4 The Z-score is the number of standard deviations above or below age-matched controls. A Z-score of less than -1.5 would be considered abnormal. References: 1. NIH Osteoporosis and Related Bone Diseases www osteo.org 2. International Society for Clinical Densitometry www iscd.org 3. National Osteoporosis Foundation www nof.org Electronically Signed: Samuel Bauer MD at 8:50 EST , CC: Dr. Bandar Ricks MD Director On Air: Signed Normal [facility] SCRN MAMM (CAD)W/JAYMIERenae Stein n 10-20-2024 SCRN MAMM (CAD)W/JAYMIE BILAT [facility] Imaging Services [address] [place], [place] [address] SCRN MAMM (CAD)W/JAYMIERenae BORREGO MR#: [id number] Acct: [id number] Name: HYACINTH CORRIGAN Rep #: [id number] : 1965 F 59 From: Samuel north MD PCP: Dr. Bandar Ricks MD Status: [facility] Study: SCRN MAMM (CAD)W/JAYMIE BILAT Date of Exam: 10/03 06/26 Exam# [id number] Ordering Dr: Bandar Ricks MD [id number] MAMMOGRAPHY - BILATERAL SCREENING REASON FOR EXAM: Female, 59 years old. Routine annual screening examination. PERTINENT HISTORY: Non-contributory. TECHNIQUE: Digital bilateral breast jaymie (3D mammographic acquisition) in the CC and MLO projections. 2-D mediolateral oblique (MLO) and craniocaudad (CC) views of both breasts were obtained. CAD: Full Field Digital Mammography with Computer Added Detection was performed. COMPARISON: Comparison is made with prior study dated October 13, 2023 and August 19, 2022. FINDINGS: Breast Composition: The breasts are almost entirely fatty. There are no dominant masses or suspicious calcifications. No other significant abnormalities are identified. There has been no significant change since the prior study. BI/SCRN MAMM (CAD)W/JAYMIE BILAT IMPRESSION: Stable bilateral screening mammogram. Yearly follow-up mammogram recommended. (A) ASSESSMENT CATEGORY: BIRADS Category 1: Negative. A letter regarding these results will be sent to the patient by the facility within 30 days. Approximately 10% of breast cancers are not detected by mammography. A normal mammogram should not delay biopsy of a clinically suspicious abnormality. [id number] Electronically Signed: Samuel Bauer MD at 10:29 EST , CC: Dr. Bandar Ricks MD Director On Air: Signed Normal [facility] Basophil percentageOrdered B y: Bandar Ricks on 11-14-2023 Bilirubin [Mass/Vol] 0.70 mg/dL 0.20-1.00 [facility] Comment on above: For patients on eltr ombopag therapy, use of Dimension [place] TBIL is not recommended. Chloride [Moles/Vol] 108 mmol/L 98-107 [facility] Cholesterol [Mass/Vol] 130 mg/dL <200 [facility] Comment on above: <200 mg/dL Desirable 200-240 mg/dL Borderline >240 mg/dL High Risk Glucose [Mass/Vol] 102 mg/dL 74-106 [facility] Comment on above: Fasting Glucose resu lt from 100 to 125 mg/dL suggests IMPAIRED HOMEOSTASIS per A.D.A. criteria. Potassium [Moles/Vol] 4.1 mmol/L 3.5-5.1 [facility] Protein [Mass/Vol] 6.9 g/dL 6.4-8.2 [facility] Sodium [Moles/Vol] 140 mmol/L 136-145 [facility] Triglyceride [Mass/Vol] 56 mg/dL <199 [facility] Comment on above: The drugs N-Acetylcy steine and Metamizole may falsely depress this assay.Serum Triglycerides Reference Interval Normal <150 mg/dL Borderline high 150 - 199 mg/dL High 200 - 499 mg/dL Very High > or = 500 mg/dL Laboratory - Chemistry and C hemistry - challengeOrdered By: Bandar Ricks on 11-14-2023 ALP [Catalytic activity/Vol] 61 U/L 45-[address] [facility] ALT [Catalytic activity/Vol] 29 U/L 13-[address] [facility] CO2 [Moles/Vol] 25.0 mmol/L 21.0-32.[address] [facility] Globulin (S) [Mass/Vol] 3.3 g/dL 2.2-4.2 [facility] Urea nitrogen/Creatinine [Mass ratio] 18.4 mg/mg 10-[address] [facility] No Panel InformationOrdered By: Bandar Ricks on 11-14-2023 Estimated GFR (MDRD) Amer 85 mL/min >[address] [facility] Comment on above: GFR Calc Estimated GFR (MDRD) Non-Af Amer 71 mL/min >[address] [facility] Comment on above: Non- GFR Calc Serum or plasma albumin angelito urement (mass/volume)Ordered By: Bandar Ricks on 11-14-2023 Albumin [Mass/Vol] 3.6 g/dL 3.2-5.0 [facility] Serum or plasma albumin/glob ulin mass ratioOrdered By: Bandar Ricks on 11-14-2023 Albumin/Globulin [Mass ratio] 1.1 {ratio} 0.9-2.[address] [facility] Serum or plasma calcium angelito urement (mass/volume)Ordered By: Bandar Ricks on 11-14-2023 Calcium [Mass/Vol] 9.1 mg/dL 8.5-10.1 [facility] Serum or plasma cholesterol in HDL measurement (mass/volume)Ordered By: Bandar Ricks on 11-14-2023 Cholesterol in HDL [Mass/Vol] 58 mg/dL >[address] [facility] Comment on above: The drugs N-Acetylcy steine and Metamizole may falsely depress this assay. Reference Range HDL <40 mg/dL Low HDL Cholesterol HDL >or= 60 mg/dL High HDL Cholesterol Serum or plasma cholesterol in VLDL measurement (mass/volume)Ordered By: Bandar Ricks on 11-14-2023 Cholesterol in VLDL [Mass/Vol] 11 mg/dL 5-[address] [facility] Serum or plasma creatinine m easurement (mass/volume)Ordered By: Bandar Ricks on 11-14-2023 Creatinine [Mass/Vol] 0.87 mg/dL 0.55-1.02 [facility] Comment on above: The validity of the calculated GFR & GFRAA in patients over 70 years has not been determined. Clinical correlation is essential. Serum or plasma low density lipoprotein (LDL) cholesterol measurement (mass/volume)Ordered By: Bandar Ricks on 11-14-2023 Cholesterol in LDL [Mass/Vol] 61 mg/dL 0-[address] [facility] Serum or plasma urea nitroge n measurement (mass/volume)Ordered By: Bandar Ricks on 11-14-2023 Urea nitrogen [Mass/Vol] 16 mg/dL 7-[address] [facility] Thin prep Papanicolaou smear with manual screeningOrdered By: Bandar Ricks on 11-14-2023 Thin prep Papanicolaou smear with manual screening 24 U/L 15-[address] [facility] Thin prep Papanicolaou smear with manual screening 7 5-[address] [facility] Basophil percentageOrdered B y: Bandar Ricks on 05-12-2023 Bilirubin [Mass/Vol] 0.80 mg/dL 0.20-1.00 [facility] Comment on above: For patients on eltr ombopag therapy, use of Dimension [place] TBIL is not recommended. Chloride [Moles/Vol] 106 mmol/L 98-107 [facility] Cholesterol [Mass/Vol] 141 mg/dL <200 [facility] Comment on above: <200 mg/dL Desirable 200-240 mg/dL Borderline >240 mg/dL High Risk Glucose [Mass/Vol] 99 mg/dL 74-106 [facility] Potassium [Moles/Vol] 3.9 mmol/L 3.5-5.1 [facility] Protein [Mass/Vol] 7.6 g/dL 6.4-8.2 [facility] Sodium [Moles/Vol] 136 mmol/L 136-145 [facility] Triglyceride [Mass/Vol] 39 mg/dL <199 [facility] Comment on above: The drugs N-Acetylcy steine and Metamizole may falsely depress this assay.Serum Triglycerides Reference Interval Normal <150 mg/dL Borderline high 150 - 199 mg/dL High 200 - 499 mg/dL Very High > or = 500 mg/dL Laboratory - Chemistry and C hemistry - challengeOrdered By: Bandar Ricks on 05-12-2023 ALP [Catalytic activity/Vol] 67 U/L 45-[address] [facility] ALT [Catalytic activity/Vol] 34 U/L 13-[address] [facility] CO2 [Moles/Vol] 26.0 mmol/L 21.0-32.[address] [facility] Globulin (S) [Mass/Vol] 3.8 g/dL 2.2-4.2 [facility] Urea nitrogen/Creatinine [Mass ratio] 15.3 mg/mg 10-[address] [facility] No Panel InformationOrdered By: Bandar Ricks on 05-12-2023 Estimated GFR (MDRD) Amer 75 mL/min >[address] [facility] Comment on above: GFR Calc Estimated GFR (MDRD) Non-Af Amer 62 mL/min >[address] [facility] Comment on above: Non- GFR Calc Serum or plasma albumin angelito urement (mass/volume)Ordered By: Bandar Ricks on 05-12-2023 Albumin [Mass/Vol] 3.8 g/dL 3.2-5.0 [facility] Serum or plasma albumin/glob ulin mass ratioOrdered By: Bandar Ricks on 05-12-2023 Albumin/Globulin [Mass ratio] 1.0 {ratio} 0.9-2.[address] [facility] Serum or plasma calcium angelito urement (mass/volume)Ordered By: Bandar Ricks on 05-12-2023 Calcium [Mass/Vol] 9.0 mg/dL 8.5-10.1 [facility] Serum or plasma cholesterol in HDL measurement (mass/volume)Ordered By: Bandar Ricks on 05-12-2023 Cholesterol in HDL [Mass/Vol] 67 mg/dL >[address] [facility] Comment on above: The drugs N-Acetylcy steine and Metamizole may falsely depress this assay. Reference Range HDL <40 mg/dL Low HDL Cholesterol HDL >or= 60 mg/dL High HDL Cholesterol Serum or plasma cholesterol in VLDL measurement (mass/volume)Ordered By: Bandar Ricks on 05-12-2023 Cholesterol in VLDL [Mass/Vol] 8 mg/dL 5-[address] [facility] Serum or plasma creatinine m easurement (mass/volume)Ordered By: Bandar Ricks on 05-12-2023 Creatinine [Mass/Vol] 0.98 mg/dL 0.55-1.02 [facility] Comment on above: The validity of the calculated GFR & GFRAA in patients over 70 years has not been determined. Clinical correlation is essential. Serum or plasma low density lipoprotein (LDL) cholesterol measurement (mass/volume)Ordered By: Bandar Ricks on 05-12-2023 Cholesterol in LDL [Mass/Vol] 66 mg/dL 0-[address] [facility] Serum or plasma urea nitroge n measurement (mass/volume)Ordered By: Bandar Ricks on 05-12-2023 Urea nitrogen [Mass/Vol] 15 mg/dL 7-[address] [facility] Thin prep Papanicolaou smear with manual screeningOrdered By: Bandar Ricks on 05-12-2023 Thin prep Papanicolaou smear with manual screening 29 U/L 15-[address] [facility] Thin prep Papanicolaou smear with manual screening 4 5-[address] [facility] Culture, urineOrdered By: Dr Luther Ricks on 11-12-2022 Bacteria identified Cx Nom (U) Positive [facility] Basophil percentageOrdered B y: Dr. Ricks on 11-11-2022 Basophil percentage 0-5 SEEN /hpf 0-5 [facility] Bilirubin Test strip Ql (U)O rdered By: Dr. Ricks on 11-11-2022 Bilirubin Ql (U) Negative Negative [facility] Ketones Test strip Ql (U)Ord ered By: Dr. Ricks on 11-11-2022 Ketones Ql (U) Negative Negative [facility] Mucus LM Ql (Urine sed)Order ed By: Dr. Ricks on 11-11-2022 Mucus Ql (Urine sed) 0 SEEN /hpf [facility] Nitrite Test strip Ql (U)Ord ered By: Dr. Ricks on 11-11-2022 Nitrite Ql (U) Negative Negative [facility] Protein Test strip Ql (U)Ord ered By: Dr. Ricks on 11-11-2022 Protein Ql (U) Negative Negative [facility] Squamous epithelial cells de tection in urine sediment by light microscopyOrdered By: Dr. Ricks on 11-11-2022 Epithelial cells.squamous LM Ql (Urine sed) 0-5 SEEN /hpf 5-[address] [facility] Urine blood detectionOrdered By: Dr. Ricks on 11-11-2022 RBC Ql (U) 25 /ul Negative [facility] RBC Ql (U) 0-5 SEEN /hpf 0-[address] [facility] Urine clarityOrdered By: Dr. Ricks on 11-11-2022 Clarity (U) Sl. Cloudy Clear [facility] Urine color determinationOrd ered By: Dr. Ricks on 11-11-2022 Color (U) Straw Yellow [facility] Urine glucose detectionOrder ed By: Dr. Ricks on 11-11-2022 Glucose Ql (U) Normal mg/dl Normal [facility] Urine leukocyte esterase det ection by dipstickOrdered By: Dr. Ricks on 11-11-2022 Leukocyte esterase Test strip Ql (U) 25 /ul Negative [facility] Urine pHOrdered By: Dr. Neptali madison on 11-11-2022 pH (U) 7.0 [pH] 5.0 - 8.[address] [facility] Urine sediment bacteria coun t by microscopy (number/high power field)Ordered By: Dr. Ricks on 11-11-2022 Bacteria LM.HPF (Urine sed) [#/Area] 0 /[HPF] None Seen [facility] Urine specific gravity measu rementOrdered By: Dr. Ricks on 11-11-2022 Specific gravity (U) [Rel density] 1.005 1.002-1.[address] [facility] Urobilinogen Auto test strip Ql (U)Ordered By: Dr. Ricks on 11-11-2022 Urobilinogen Ql (U) Normal mg/dl Normal [facility] Basophil percentageOrdered B y: Dr. Ricks on 10-30-2022 Chloride [Moles/Vol] 106 mmol/L 98-107 [facility] Cholesterol [Mass/Vol] 171 mg/dL <200 [facility] Comment on above: <200 mg/dL Desirable 200-240 mg/dL Borderline >240 mg/dL High Risk Glucose [Mass/Vol] 104 mg/dL 74-106 [facility] Comment on above: Fasting Glucose resu lt from 100 to 125 mg/dL suggests IMPAIRED HOMEOSTASIS per A.D.A. criteria. Potassium [Moles/Vol] 3.7 mmol/L 3.5-5.1 [facility] Sodium [Moles/Vol] 140 mmol/L 136-145 [facility] Triglyceride [Mass/Vol] 57 mg/dL <199 [facility] Comment on above: The drugs N-Acetylcy steine and Metamizole may falsely depress this assay.Serum Triglycerides Reference Interval Normal <150 mg/dL Borderline high 150 - 199 mg/dL High 200 - 499 mg/dL Very High > or = 500 mg/dL Laboratory - Chemistry and C hemistry - challengeOrdered By: Dr. Ricks on 10-30-2022 CO2 [Moles/Vol] 28.0 mmol/L 21.0-32.[address] [facility] Urea nitrogen/Creatinine [Mass ratio] 15.4 mg/mg 10-[address] [facility] No Panel InformationOrdered By: Dr. Ricks on 10-30-2022 Estimated GFR (MDRD) Amer 81 mL/min >[address] [facility] Comment on above: GFR Calc Estimated GFR (MDRD) Non-Af Amer 67 mL/min >[address] [facility] Comment on above: Non- GFR Calc Serum or plasma calcium angelito urement (mass/volume)Ordered By: Dr. Ricks on 10-30-2022 Calcium [Mass/Vol] 9.0 mg/dL 8.5-10.1 [facility] Serum or plasma cholesterol in HDL measurement (mass/volume)Ordered By: Dr. Ricks on 10-30-2022 Cholesterol in HDL [Mass/Vol] 67 mg/dL >[address] [facility] Comment on above: The drugs N-Acetylcy steine and Metamizole may falsely depress this assay. Reference Range HDL <40 mg/dL Low HDL Cholesterol HDL >or= 60 mg/dL High HDL Cholesterol Serum or plasma cholesterol in VLDL measurement (mass/volume)Ordered By: Dr. Ricks on 10-30-2022 Cholesterol in VLDL [Mass/Vol] 11 mg/dL 5-[address] [facility] Serum or plasma creatinine m easurement (mass/volume)Ordered By: Dr. Ricks on 10-30-2022 Creatinine [Mass/Vol] 0.91 mg/dL 0.55-1.02 [facility] Comment on above: The validity of the calculated GFR & GFRAA in patients over 70 years has not been determined. Clinical correlation is essential. Serum or plasma low density lipoprotein (LDL) cholesterol measurement (mass/volume)Ordered By: Dr. Ricks on 10-30-2022 Cholesterol in LDL [Mass/Vol] 93 mg/dL 0-[address] [facility] Serum or plasma urea nitroge n measurement (mass/volume)Ordered By: Dr. Ricks on 10-30-2022 Urea nitrogen [Mass/Vol] 14 mg/dL 7-[address] [facility] Thin prep Papanicolaou smear with manual screeningOrdered By: Dr. Ricks on 10-30-2022 Thin prep Papanicolaou smear with manual screening 6 5-[address] [facility] Cervical or vagninal specime n microscopic examination by cytology stain (reported ason 04-24-2022 Cytology report Cyto stain Doc (Cvx/Vag) Comment . [facility] Work Phone: Comment on above: The Pap smear is a s creening test designed to aid in thedetection of premalignant and malignant conditions of theuterine cervix. It is not a diagnostic procedure andshould not be used as the sole means of detecting cervicalcancer. Both false-positive and false-negative reports dooccur. Laboratory - Cytologyon 04-04 Registered Nurse Maternal Child Cyto stain Nom (Cvx/Vag) [ID] Comment . [facility] Work Phone: Comment on above: John Redd, Cyto technologist (ASCP) Laboratory - Miscellaneous t estson 04-24-2022 Service comment (Unsp spec) [Interp] Comment . [facility] Work Phone: Comment on above: This liquid based Th inPrep(R) pap test was screened withthe use of an image guided system. Service comment (Unsp spec) [Interp] . . [facility] Work Phone: No Panel Informationon 04-24 Pathology report final diagnosis Narrative Comment . [facility] Work Phone: Comment on above: NEGATIVE FOR INTRAEP ITHELIAL LESION OR MALIGNANCY. Basophil percentageon 2021 Chloride [Moles/Vol] 109 mmol/L 98-107 [facility] Work Phone: Glucose [Mass/Vol] 100 mg/dL 74-106 [facility] Work Phone: Comment on above: Fasting Glucose resu lt from 100 to 125 mg/dL suggests IMPAIRED HOMEOSTASIS per A.D.A. criteria. Potassium [Moles/Vol] 4.1 mmol/L 3.5-5.1 [facility] Work Phone: Sodium [Moles/Vol] 140 mmol/L 136-145 [facility] Work Phone: Laboratory - Chemistry and C hemistry - challengeon 04-02-2022 CO2 [Moles/Vol] 28.0 mmol/L 21.0-32.[address] [facility] Work Phone: Urea nitrogen/Creatinine [Mass ratio] 23.0 mg/mg 10-[address] [facility] Work Phone: No Panel Informationon 04-02 Estimated GFR (MDRD) Amer 77 mL/min >[address] [facility] Work Phone: Comment on above: GFR Calc Estimated GFR (MDRD) Non-Af Amer 63 mL/min >[address] [facility] Work Phone: Comment on above: Non- GFR Calc Serum or plasma calcium angelito urement (mass/volume)on 04-02-2022 Calcium [Mass/Vol] 9.2 mg/dL 8.5-10.1 [facility] Work Phone: Serum or plasma creatinine m easurement (mass/volume)on 04-02-2022 Creatinine [Mass/Vol] 0.96 mg/dL 0.55-1.02 [facility] Work Phone: Comment on above: The validity of the calculated GFR & GFRAA in patients over 70 years has not been determined. Clinical correlation is essential. Serum or plasma urea nitroge n measurement (mass/volume)on 04-02-2022 Urea nitrogen [Mass/Vol] 22 mg/dL 7-[address] [facility] Work Phone: Thin prep Papanicolaou smear with manual screeningon 04-02-2022 Thin prep Papanicolaou smear with manual screening 3 5-[address] [facility] Work Phone: CNOVon 01-11-2021 CNOV Office Visit (FAMPWS) HYACINTH CORRIGAN ([id number]) 1965 F Date Time Provider Department 01/11/21 9:40 AM GREGG LY III During your visit today, we recorded the following information about you: Pulse Respiration Blood pressure Weight 76/minute 16/minute 122/70 87.5 kg Height 1.651 m Gregg Ly III MD 01/11/2021 12:47 PM Signed SUBJECTIVE: This is a 55 year old female that is here today for Chronic Medical Conditions. and wellness exam. 1. hypertension--tolera dereck medication well 2. impaired fasting glucose. . 3. Mother has severe diabetes mellitus with multiple co-morbidities. 4. pain from R shoulder radiating to distal to R elbow. Some numbness R hand, tiffnay 4th and 5th fingers. 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 Hx of R thoracic syndrome. Lots of [...] Take by mouth as needed. No current facility-administere d medications on file prior to visit. FAMILY [...] 76 Resp 16 Ht 165.1 cm (5' 5) Wt 87.5 kg (193 lb) LMP 08/14/2015 [...] No involuntary motions. Lab Results for HYACINTH CORRGIAN ( ) as of 01/11/2021 10:19 Ref. [...] and treat right shoulder wellness form completed Gregg Ly III MD Medical Decision Making: Problems: Moderate: 2+ stable chronic illnesses and 1+ chronic illnesses with change Data: Unique test result(s) reviewed: 3+ Risk: Moderate: Drug management Medical Decision Making Level: 4 - (more content not included)... Normal [facility] CNCOon 01-04-2021 CNCO Letter Text Normal [facility] Comp Metabolic Panelon 01-03 Albumin [Mass/Vol] 4.3 g/dL Normal 3.9-4.9 [facility] Comment on above: Performed By: #### Percy REBOLLEDO LIPAda ####[facility] [address] [place], [place] [phone] ALP [Catalytic activity/Vol] 64 U/L Normal 34-123 [facility] Comment on above: Performed By: #### Percy REBOLLEDO LIPB ####[facility] [address] [place], [place] [phone] ALT [Catalytic activity/Vol] 28 U/L Normal 7-38 [facility] Comment on above: Performed By: #### Percy REBOLLEDO LIPB ####[facility] [address] [place], [place] [phone] Anion gap [Moles/Vol] 8 mmol/L Low 9-18 [facility] Comment on above: Performed By: #### Percy REBOLLEDO LIPB ####[facility] [address] [place], [place] [phone] AST [Catalytic activity/Vol] 28 U/L Normal 13-35 [facility] Comment on above: Performed By: #### C MP, LIPB ####[place] [address] [place] [phone] Bilirubin [Mass/Vol] 0.5 mg/dL Normal 0.2-1.3 [facility] Comment on above: Performed By: #### C MP, LIPB ####[place] [phone] Calcium [Mass/Vol] 9.4 mg/dL Normal 8.5-10.2 [facility] Comment on above: Performed By: #### C MP, LIPB ####[place] [phone] Chloride [Moles/Vol] 106 mmol/L High 97-105 [facility] Comment on above: Performed By: #### C MP, LIPB ####[place] [address] [place] [phone] CO2 [Moles/Vol] 28 mmol/L Normal 22-30 [facility] Comment on above: Performed By: #### C MP, LIPB ####[place] [phone] Creatinine [Mass/Vol] 0.86 mg/dL Normal 0.58-0.96 [facility] Comment on above: Performed By: #### C MP, LIPB ####[place] [address] [place] [phone] eGFR- Amer. >60 Normal [facility] Comment on above: Performed By: #### C MP, LIPB ####[place] [phone] eGFR-All Other Races >60 Normal [facility] Comment on above: Result Comment: eGFR (Estimated GFR) Units of measure: mL/min/1.73 meters squared eGFR is derived from the reexpressed MDRD Study equation using the following parameters: serum creatinine, age, gender and race. The creatinine assay has been calibrated to be traceable to IDMS. An eGFR <60 mL/min/1.73m2 for >3 months is consistent with chronic kidney disease. Refer to KDOQI guidelines for clinical interpretation. In patients with unstable renal function, e.g. those with acute kidney injury, the eGFR may not accurately reflect actual GFR. Performed By: #### C AFUA REBOLLEDOB ####[facility] [place], [place] [phone] Glucose [Mass/Vol] 104 mg/dL High 74-99 [facility] Comment on above: Result Comment: The [place] Diabetes Association (ADA) provides guidance for cutoff values for fasting glucose and random glucose. The ADA defines fasting as no caloric intake for at least 8 hours. Fasting plasma glucose results between 100 to 125 mg/dL indicate increased risk for diabetes (prediabetes). Fasting plasma glucose results greater than or equal to 126 mg/dL meet the criteria for diagnosis of diabetes. In the absence of unequivocal hyperglycemia, results should be confirmed by repeat testing. In a patient with classic symptoms of hyperglycemia or hyperglycemic crisis, random plasma glucose results greater than or equal to 200 mg/dL meet the criteria for diagnosis of diabetes. Reference: Standards of Medical Care in Diabetes 2016, [place] Diabetes Association. Diabetes Care. 2016.39(Suppl 1). Performed By: #### C AFUA REBOLLEDOB ####[facility] [address] [place], [place] [phone] Potassium [Moles/Vol] 4.2 mmol/L Normal 3.7-5.1 [facility] Comment on above: Performed By: #### C AFUA REBOLLEDOB ####[facility] [place], [place] [phone] Protein [Mass/Vol] 7.4 g/dL Normal 6.3-8.0 [facility] Comment on above: Performed By: #### C AFUA REBOLLEDOB ####[place] [address] [place], [place] [phone] Sodium [Moles/Vol] 142 mmol/L Normal 136-144 [facility] Comment on above: Performed By: #### C KESHA, LIPB ####[place] [address] [place], [place] [phone] Urea nitrogen [Mass/Vol] 20 mg/dL Normal 7-21 [facility] Comment on above: Performed By: #### C KESHA, LIPB ####[place] [address] [place], [place] [phone] Lipid Panel, [place] 021 Cholesterol [Mass/Vol] 150 mg/dL Normal <200 [facility] Comment on above: Result Comment: <200 mg/dL, Desirable 200-239 mg/dL, Borderline high >239 mg/dL, High Performed By: #### C KESHA, LIPB ####[place] [address] [place], [place] [phone] Cholesterol in HDL [Mass/Vol] 64 mg/dL Normal >39 [facility] Comment on above: Result Comment: 40-5 9 mg/dL, Acceptable >59 mg/dL, High: Negative risk factor for coronary heart disease <40 mg/dL, Low: Positive risk factor for coronary heart disease Performed By: #### C KESHA, LIPB ####[place] [address] [place], [place] [phone] Cholesterol in LDL [Mass/Vol] 79 mg/dL Normal <100 [facility] Comment on above: Result Comment: <100 mg/dL, Optimal 100-129 mg/dL, Near optimal/above optimal 130-159 mg/dL, Borderline high 160-189 mg/dL, High >189 mg/dL, Very high Secondary prevention optimal LDL Cholesterol levels are recommended to be < 70 mg/dL Performed By: #### C KESHA, LIPB ####[place] [address] [place], [place] [phone] Fasting Time 14 hrs Normal [facility] Comment on above: Performed By: #### C MP, LIPB ####[address] [phone] LDL:HDL Ratio 1.23 Normal <2.54 [facility] Comment on above: Result Comment: Ashwin goldstein: 1. National Cholesterol Education Program ATP III Guideline At-A-Glance Quick Desk Reference: National Heart, Lung, and Blood [place]. National Institutes of Health. 2001: NIH Publication No. 01-3305. 2. An International Atherosclerosis Society position paper: global recommendations for the management of dyslipidemia: executive summary, Atherosclerosis. 2014: 232(2):410-413. Performed By: #### C MP, LIPB ####[place] [phone] Non HDL Cholesterol 86 mg/dL Normal <130 [facility] Comment on above: Result Comment: <130 mg/dL, Optimal 130-159 mg/dL, Near optimal/above optimal 160-189 mg/dL, Borderline high 190-219 mg/dL, High >219 mg/dL, Very high Secondary prevention optimal non HDL Cholesterol levels are recommended to be < 100 mg/dL Performed By: #### C MP, LIPB ####[place] [phone] TC:HDL Ratio 2.34 Normal <5.10 [facility] Comment on above: Performed By: #### C MP, LIPB ####[place] [address] [place] [phone] Triglyceride [Mass/Vol] 36 mg/dL Normal <150 [facility] Comment on above: Result Comment: <150 mg/dL, Normal 150-199 mg/dL, Borderline high 200-499 mg/dL, High >499 mg/dL, Very high Performed By: #### C MP, LIPB ####[address] [phone] VLDL Cholesterol 7 mg/dL Normal <30 [facility] Comment on above: Performed By: #### C MP, LIPB ####[facility] [address] [place], [place] [phone] [facility] HNO ID: [id number] Author: Mammography Coordinator Service: ? Author Type: Physician Type: Letter Filed: 01/01/2021 11:32 PM Note Text: December 28, 2020 PID: [id number] Hyacinth Kim Shekhar [address] [place] [id number] Dear Ms. Corrigan, We are pleased to inform you that the results of your recent breast imaging exam on 12/28/2020 are normal. Early detection of cancer is very important. We also understand recommendations regarding breast cancer screening are controversial. Please discuss with your primary care provider which strategy is best for you and whether a mammogram is right for you. Your imaging studies and report will be kept on file at [facility] as part of your permanent medical record and are available for your continuing care. Thank you for allowing us to help in meeting your health care needs. Sincerely, Dr. Jimenez Interpreting Radiologist [facility] (Normal over 40) Normal [facility] CNOVon 12-28-2020 CNOV Office Visit (OBGYWM) HYACINTH CORRIGAN Kathryn ([id number]) 1965 F Date Time Provider Department 12/28/20 3:30 PM ANNA AMADOR ([place]) OBGYWM During your visit today, we recorded the following information about you: Blood pressure Weight Height 120/82 88 kg 1.651 m Anna Amador APRN.AU[place]INA 12/28/2020 3:45 PM Signed Hyacinth is a 55 year old who presents for an annual gynecologic exam without complaints. Has had hiatal hernia for 14 years and now thinks it needs to be repaired. 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 Plans to make appointment with PCP. Postmenopausal:?Yes since age?51 HRT use:?No. Last Pap:?2015?normal?? HPV:?2015?negative History of abnormal pap:?No Last mammogram:??today?pe nding History of abnormal mammogram:?No Sexually active: No [...] both eyes - COLONOSCOP W/ OR W/O [facility] SPEC 12/07/15 Colonoscopy - EGD W/O [facility] SPECIMEN W/BX 2002 Hiatal hernia, minimal antral gastritis - FOOT SURGERY HX Right 10/15/2019 - LAP CHOLECYSTECT/CHOLANG IOGRAPHY 02/17/07 - RE-REPAIR DETACHED RETINA 04/2019 FAMILY [...] external genitalia normal, normal Bartholin's glands, urethra, [place]'s glands, no vulvar lesions, no cervical lesions, [...] year or sooner as needed Anna Amador APRN.[place]INA Amador APRN.AU[place]USTINA 12/28/2020 3:30 PM Signed Calcium and Vitamin D Supplementation (from the National Institutes of Health Office of Dietary Supplements 2010) Calcium 1200 mg daily - 600 mg twice a day if taking supplement and Vit D 800-1000 IU daily Calcium is required by the body for blood vessel, muscle, hormone and nerve functioning. Most of the body's calcium is stored in the bones and teeth where it supports structure and function. Bone is continuously broken down and reformed. When bone breakdown exceeds formation, especially in postmenopausal women, bone loss can increase the risk of osteoporosis and fractures. In addition to low calcium intake, women who smoke, have a family history of osteoporosis, are thin, or , or who take certain medications such as cancer chemotherapy, seizure mediations and steroids are at increased risk of osteoporosis. The calcium requirem (more content not included)... [facility] (FAMPWS) HYACINTH CORRIGAN ([id number]) 1965 F Date Time Provider Department 12/28/20 GREGG LY III During your visit today, we recorded the following information about you: Mita Quigley Pss 12/28/2020 4:01 PM Signed Patient is scheduled for physical 01/11 and requesting lab orders. Please route back to project controls scheduler for lab appointment once orders are placed. thanks Gregg Ly III MD 12/28/2020 5:31 PM Signed Orders have been placed Gregg Ly III, MD, FAAFP Emely Villalta 12/30/2020 2:04 PM Signed Labs are scheduled for 01/03 Allergies As of Date: 12/28/2020 Noted Allergy Reaction EFFEXOR (VENLAFAXINE ANALOGUES) 04/20/2018 1 - Mental Status Change ERYTHROMYCIN 10/09/2005 8 - GI Upset PRILOSEC (OMEPRAZOLE) 10/09/2005 Comments: abdominal bloating psuedoephrine [Other] 10/09/2005 TCN (TETRACYCLINES) 10/09/2005 Comments: yeast infections Date Reviewed: 12/28/2020 Reviewed by: Anna Amador - Fully Assessed Reason for Visit: Orders [681] Appointment [186] Reason For Visit History Recorded Primary Visit Diagnosis:Essential hypertension, benign [I10] Other Visit Diagnosis: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 Problem List As Of Date 12/28/2020 Noted Resolved Abdominal pain, right upper quadrant [...] dermatitis due to solar radiation*02/23/2008 11/02/2015 SOLAR LENGINES///DYSCHROMI A OTHER [L81.9] 02/23/2008 11/02/2015 Candidiasis of vulva and vagina [B37.3] 02/23/2008 02/09/2013 Potassium deficiency [E87.6] 01/11/2011 05/08/2019 GERD (gastroesophageal reflux disease) [K21.9] 09/10/2011 Obesity, Class I, BMI 30-34.9 [E66.9] 04/17/2018 Retinal hemorrhage of right eye [H35.61] 05/08/2019 Encounter Status:Closed by EMELY [facility]ILLALTA [facility] HYACINTH CORRIGAN ([id number]) 1965 F Date Time Provider Department 12/28/20 ANNA AMADOR ([facility]) RDXWS During your visit today, we recorded the following information about you: Marshall Muhammad Tech 12/28/2020 10:35 AM Signed Please file orders for a screening mammogram for this patient's mammogram today. Thanks Maira Samaniego LPN 12/28/2020 10:37 AM Signed See pended order below. Maira Danette AYERS Allergies As of Date: 12/28/2020 Noted Allergy Reaction EFFEXOR (VENLAFAXINE ANALOGUES) 04/20/2018 1 - Mental Status Change ERYTHROMYCIN 10/09/2005 8 - GI Upset PRILOSEC (OMEPRAZOLE) 10/09/2005 Comments: abdominal bloating psuedoephrine [Other] 10/09/2005 TCN (TETRACYCLINES) 10/09/2005 Comments: yeast infections Date Reviewed: 07/07/2020 Reviewed by: Cristine Taveras Ma - Fully Assessed Reason for Visit: Orders [681] Primary Visit Diagnosis:Encounter for screening mammogram for malignant neoplasm of breast [Z12.31] Order(s):[facility] SCREENING [[id number]] Order #: [id number] FUTURE Prescriptions as of 12/28/2020 Sig: PANTOPRAZOLE 20 MG TABLET,DEL* Take 1 tablet by mouth daily * LISINOPRIL 5 MG TABLET Take 1 tablet by mouth once d* TYLENOL ORAL Take by mouth as needed. Problem List As Of Date 12/28/2020 Noted Resolved Abdominal pain, right upper quadrant [...] dermatitis due to solar radiation*02/23/2008 11/02/2015 SOLAR LENGINES///DYSCHROMI A OTHER [L81.9] 02/23/2008 11/02/2015 Candidiasis of vulva and vagina [B37.3] 02/23/2008 02/09/2013 Potassium deficiency [E87.6] 01/11/2011 05/08/2019 GERD (gastroesophageal reflux disease) [K21.9] 09/10/2011 Obesity, Class I, BMI 30-34.9 [E66.9] 04/17/2018 Retinal hemorrhage of right eye [H35.61] 05/08/2019 Encounter Status:Closed by HAYDEN SIMMONS RN on 12/28/20 Normal [facility] HPV w/Genotypeon 12-28-2020 HPV HighRisk Other Negative for HPV DNA high risk types: 31,33,35,39,45,51,52 ,56,58,59,66,68 by PCR. Normal [facility] Comment on above: Result Comment: This test was developed and its performance characteristics determined by [facility] [place] ([facility]). It has not been cleared or approved by the FDA. [facility] is regulated under CLIA as qualified to perform high-complexity testing. This test is used for clinical purposes. It should not be regarded as investigational or for research. Performed By: #### H PVHRR ####[facility] [address] [place], [place] [phone] HPV HighRisk Type 16 Negative Normal [facility] Comment on above: Performed By: #### H PVHRR ####[facility] [address] [place], [place] [phone] HPV HighRisk Type 18 Negative Normal [facility] Comment on above: Performed By: #### H PVHRR ####[facility] [address] [place], [place] [phone] CODIE SCREENINGon 12-28-2020 CODIE SCREENING * * *Final Report* * * DATE OF EXAM: Dec 28 2020 3:11PM ARSENIO [id number] - [facility] SCREENING / PROCEDURE REASON: Encounter for screening mammogram for malignant neoplasm of breast * * * * Physician Interpretation * * * * RESULT: #[id number] - [facility] SCREENING BILATERAL DIGITAL SCREENING MAMMOGRAM WITH CAD: 12/28/2020 HISTORY: Encounter For Screening Mammogram For Malignant Neoplasm Of Breast / Screening Mammogram-Patient reports NO symptoms /priors available for comparison. RESULT: TECHNIQUE: The study was acquired using full field digital technology and interpreted from soft copy. Current study was also evaluated with a Computer Aided Detection (CAD). Comparison is made to exams dated: 10/21/2019 mammogram, 05/21/2018 mammogram, and 03/06/2017 mammogram - [facility]. The tissue of both breasts is predominantly fatty. No significant masses, calcifications, or other findings are seen in either breast. There has been no significant interval change. IMPRESSION: NEGATIVE There is no mammographic evidence of malignancy. A 1 year screening mammogram is recommended. Marlee christian/ann:12/28/2020 15:23:42 Centerless Grinding Machine Adjuster(s): RT Mira(R)(M), [facility] letter sent: Normal over 40 Mammogram BI-RADS: 1 Negative Multiple national specialty organizations have released breast cancer screening guidelines for women at average risk for developing breast cancer - guidelines that are based on both evidence and opinion, yet differ on when to start and how often to screen for breast cancer. With representation from Breast Imaging, Internal Medicine, Women's Health, Family Medicine, and Medical/Surgical Oncology, the [facility] has carefully reviewed the data and reached the following consensus: 1) All women should engage in shared decision-making with their providers to decide when to start and how often to screen; 2) All women should have the opportunity to start screening mammography at age 40; 3) For women ages 45-55, we recommend annual screening mammograms; 4) For women ages 55 and over, we support both the transition from an annual to a biennial interval if this aligns more with patient's values and preferences, or continuation with annual screening; 5) All women should discuss with their providers when to stop screening mammograms. Director On Air: Ann Transcribe Date/Time: Dec 28 2020 2:53P Dictated by: MARLEE JIMENEZ MD This examination was interpreted and the report reviewed and electronically signed by: MARLEE JIMENEZ MD on Dec 28 2020 3:23PM EST [id number] CN Normal [facility] OBSOLETEon 12-03-2020 OBSOLETE Refill (FAMPWS) SHEKHARHYACINTH ([id number]) 1965 F Date Time Provider Department 12/03/20 GREGG LY III FAMPWS During your visit today, we recorded the following information about you: Selma Rojas Ma 12/04/2020 11:10 AM Signed Last office visit: 04/25/20 F/u scheduled: ;none Selma Simon DNP.HAND MOLD MAKER, RAILROAD WHEELS AND AXLES INSPECTOR.HAND MOLD MAKER 12/04/2020 4:09 PM Signed The following approved medication requests have been transmitted electronically. Pending Prescriptions Disp Refills PANTOPRAZOLE 20 MG TABLET,DELAYED RELEASE 90 tablet 3 Sig: Take 1 tablet by mouth daily before breakfast. Take on empty stomach, 1/2 hr before meal. Process through [facility], not insurance GAYATRI: No Boogie Simon DNP.CNP Allergies As of Date: 12/03/2020 Noted Allergy Reaction EFFEXOR (VENLAFAXINE ANALOGUES) 04/20/2018 1 - Mental Status Change ERYTHROMYCIN 10/09/2005 8 - GI Upset PRILOSEC (OMEPRAZOLE) 10/09/2005 Comments: abdominal bloating psuedoephrine [Other] 10/09/2005 TCN (TETRACYCLINES) 10/09/2005 Comments: yeast infections Date Reviewed: 07/07/2020 Reviewed by: Cristine Taveras Ma - Fully Assessed Reason for Visit: Refill Request [94] Visit Diagnosis:Gastroesop hageal reflux disease [K21.9] Order(s):pantoprazol e DR (PROTONIX) 20 mg tabletTake 1 tablet by mouth daily before breakfast. Take on empty stomach, 1/2 hr before meal. Process through [facility], not insuranceDisp: 90 tabletRfl: 3 Prescriptions as of 12/03/2020 Sig: PANTOPRAZOLE 20 MG TABLET,DEL* Take 1 tablet by mouth daily * LISINOPRIL 5 MG TABLET Take 1 tablet by mouth once d* TYLENOL ORAL Take by mouth as needed. Problem List As Of Date 12/03/2020 Noted Resolved Abdominal pain, right upper quadrant [...] dermatitis due to solar radiation*02/23/2008 11/02/2015 SOLAR LENGINES///DYSCHROMI A OTHER [L81.9] 02/23/2008 11/02/2015 Candidiasis of vulva and vagina [B37.3] 02/23/2008 02/09/2013 Potassium deficiency [E87.6] 01/11/2011 05/08/2019 GERD (gastroesophageal reflux disease) [K21.9] 09/10/2011 Obesity, Class I, BMI 30-34.9 [E66.9] 04/17/2018 Retinal hemorrhage of right eye [H35.61] 05/08/2019 Prescriptions ordered this encounter Disp Refills Start End PANTOPRAZOLE 20 MG TABLET,DELAYED RE* 90 t* 3 12/04/2020 Route: ORAL Sig: Take 1 tablet by mouth daily before breakfast. Take on empty stomach, 1/2 hr before meal. Process through [facility], not insurance Medications Discontinued During This Encounter Prescriptions - pantoprazole DR (PROTONIX) 20 mg tablet (Discontinued) Take 1 tablet by mouth daily before breakfast. Take on empty stomach, 1/2 hr before meal. Process through [facility], not insurance Encounter Status:Closed by BOOGIE SIMON DNP HAND MOLD MAKER on 12/04/20 Normal [facility] CORONAVIRUS PCR [CCL]on 08-03 COVID 19 Result TECHNICAL PRODUCER Negative Normal [facility] Comment on above: Result Comment: Nega tive for COVID19 (SARS CoV2) by PCR. This test was developed and its performance characteristics determined by [facility]'s [facility] [place]. This test has been authorized by FDA under an Emergency Use Authorization (EUA). This test has been validated in accordance with the FDA's Guidance Document Policy for Diagnostics Testing in Laboratories Certified to Perform High Complexity Testing under CLIA prior to Emergency use Authorization for Coronavirus Disease 2019 during the Public Health Emergency issued on January 01, [place] [address] Sixto Lopez III, M.D. [id number] Performed By: #### 2 [id number] #### [facility],[address] [place] [address] COVID 19 Source TECHNICAL PRODUCER TECHNICAL PRODUCER SWAB Normal [facility] Comment on above: Performed By: #### 2 [id number] #### [facility],[address] [place] [address] Final Surgical Pathology Rep [facility] 10-19-2019 Final Surgical Pathology Report . Pathology Reports Accession: Collected Date/Time: Received Date/Time: Pathologist: [id number] 10/15/2019 10:25 EST 10/18/2019 10:25 DO KATHRYN MEZA Final Surgical Pathology Report DIAGNOSIS: NEUROMA, RIGHT FOOT. COMMENT: [facility] - A# [id number] CLINICAL INFORMATION: NEUROMA OF RIGHT FOOT SPECIMEN: A NEUROMA RIGHT FOOT GROSS DESCRIPTION: Received in formalin labeled with the patient's name is a 2.5 x 0.7 x 0.4 cm portion of bradford rubbery tissue. TS - 1 Dictated by Ivania PANDA ([facility]) MICROSCOPIC DESCRIPTION: Slides reviewed. Electronically Signed by Pathology Report verified by [facility] Electronically signed by KATHRYN QUIROZ DO Sign out Date: 10/19/2019 15:19 Performing Lab: [facility], [address] [place] [address] [facility] Comment on above: Performed By: #### S PFR #### [address] [address] HISTORY AND PHYSICALon 10-[address] [facility] HISTORY & PHYSICAL NAME ACCOUNT SEX AGE ADMIT DISCHARGE PT MED. RECORD# NUMBER DATE DATE TYPE SHEKHAR [id number] F 54 10/14/19 2 HYACINTH Peralta [id number] ROOM: DATE OF : 61 DICTATING PHYSICIAN: Leticia Michael CHIEF COMPLAINT: Chronic neuroma right third intermetatarsal space. SURGEON: Leticia Michael DPM PLANNED PROCEDURE: Excision painful neuroma right third intermetatarsal space. HISTORY OF PRESENT ILLNESS: The patient is known to me from my private office where she had been treated for painful recurrent neuroma both with cortisone injections, alcohol sclerosing injections, spacing, and appropriate shoes. Conservative methods have been exhausted over the years and the patient had presented to the office stating that she is interesting in surgical excision. ALLERGIES: Codeine. IMPRESSION: Risks, complications, benefits, and alternative treatments were reviewed in details. No guarding were given. Discussed the possibility of continued pain, numbness, etc. The patient states she is interested in surgical intervention as all of the treatments we have tried have failed to relieve her symptomatology. All questions were answered. Consent was reviewed and signed. PLAN: The patient will present to [facility] the morning of Friday the 15 October 2019 for outpatient surgical intervention. Dictated By: Leticia Michael DPM 10/14/19 21:28 JOB #: [id number] Transcribed By: am 10/15/19 00:26 Electronically signed by: E-SIGN LETICIA MICHAEL 10/18/19 14:23 Update to H&P: [ ] No changes: I have examined the patient and reviewed the H&P and there are no changes. Page 1 of 2 HYACINTH CORRIGAN History & Physical HYACINTH CORRIGAN :1965 [ ] As previously dictated with the following changes: ____ ____ ____ PHYSICIAN SIGNATURE: TIME: DATE: Page 2 of 2 HYACINTH CORRIGAN History & Physical Normal [facility] OPERATIVE PROCEDURESon 10-[address] [facility] OPERATIVE REPORT NAME ACCOUNT SEX AGE ADMIT DISCHARGE PT MED. RECORD# NUMBER DATE DATE TYPE SHEKHAR [id number] F 54 10/15/19 10/15/19 2 HYACINTH Peralta [id number] ROOM: [facility] DATE OF : 1965 DICTATING PHYSICIAN: Leticia Michael DATE OF SURGERY: October 15, 2019 SURGEON: Leticia Michael DPM GRAPHIC DESIGN INTERN: None. ANESTHESIOLOGIST: Lisa Mccabe CRNA, David Hill CRNA ANESTHETIC: MAC with local 2 mL 1% lidocaine plain. HEMOSTASIS: Pneumatic ankle tourniquet set at 250 mmHg. PREOPERATIVE DIAGNOSIS: Painful chronic neuroma, right third intermetatarsal space. POSTOPERATIVE DIAGNOSIS: Painful chronic neuroma, right third intermetatarsal space. OPERATION PERFORMED: Excision painful right neuroma. COMPLICATIONS: none ESTIMATED BLOOD LOSS: Minimal. DESCRIPTION OF OPERATION: Under mild sedation, patient was brought into the OR and placed on the operating table in supine position. Pneumatic ankle tourniquet was placed about the patient's right ankle. Following IV sedation, local anesthesia was obtained about the right third intermetatarsal space utilizing a total of 2 mL of 1% lidocaine plain. The foot was scrubbed, prepped and draped in the usual aseptic manner. The foot was then elevated to exsanguinate the limb and then pneumatic ankle tourniquet was inflated to 250 mmHg. Attention was then directed to the right foot at the dorsal third intermetatarsal space where approximately 3.5 cm linear longitudinal incisional was made at the superficial area of the webspace. The incision was deepened through sharp and blunt dissection. Care was taken to retract all vital neurovascular structures. All superficial bleeding Page 1 of 2 HYACINTH CORRIGAN S Operative Report HYACINTH CORRIGAN : 1965 vessels were cauterized and ligated as necessary. The incision was carried down bluntly to the level of the neuroma which was exposed immediately. It was noted to be large and bulbous, and during the dissection the patient's foot did jump quite a bit indicating significant pain even through anesthesia. The neuroma was then dissected free from its soft tissue attachments and removed and passed from the operative field. It was approximately 2.0 x 0.5 cm. It was sent to pathology for evaluation. The wound was flushed with copious amounts of normal sterile saline and inspected for any other space occupying lesions. None were noted. At this time, the deep structures were reapproximated and coapted utilizing 3-0 Vicryl. Subcutaneous tissues were reapproximated and coapted utilizing 3-0 Vicryl. Skin was reapproximated and coapted utilizing 3-0 Monocryl. Upon completion of the procedure, sterile compressive dressing consisting of Xeroform, 4x4s and Kerlix were applied after the wound was reinforced with Steri-Strips. The patient tolerated the procedure and anesthesia well. An Praneeth wrap was then applied. She was transferred to the recovery room with vital signs stable and vascular status intact to all toes of the right foot. Following a periods of postoperative monitoring, she will be discharged home with written and oral postoperative instructions. Keep dressing clean, dry and intact. Avoid excessive ambulation. Rest, ice and elevate right foot. No ice to the toes. Wear surgical shoe at all times while ambulating. Contact Dr. Michael for all postoperative followup care and if any problems arise. Postoperative prescription for pain was written for Irasema. She should take as directed. Dictated By: Leticia Michael DPM 10/15/19 09:46 JOB #: [id number] Transcribed By: cody 10/15/19 21:39 Electronically signed by: E-SIGN LETICIA MICHAEL 10/18/19 14:22 Page 2 of 2 SHEKHAR HYACINTH Peralta Operative Report Normal [facility] BUNon 10-07-2019 Urea nitrogen [Mass/Vol] 15 mg/dL Normal 6 - 20 [facility] Comment on above: Performed By: #### 2 [id number] #### [facility],[address] [place] [address] GLUCOSEon 10-07-2019 Glucose [Mass/Vol] 100 mg/dL Normal 74 - [address] [facility] Comment on above: Performed By: #### 2 [id number] #### [facility],[address] [place] [address] HEMOGLOBINon 10-07-2019 Hemoglobin (Bld) [Mass/Vol] 13.7 g/dL Normal 12.0 - 16.0 [facility] Comment on above: Performed By: #### 2 [id number] #### [facility],[address] [place] [address] Encounters Encounter Date Encounter Type Care Provider Facility Start: 05-13-2025 ambulatory [facility] Facility:[facility] Start: 12-09-2024 Encounter for genera l adult medical examination without abnormal findings Bandar Ricks [facility] Start: 11-16-2024 End: 11-16-2024 ambulatory [facility] Facility:[facility] Start: 10-20-2024 End: 10-20-2024 ambulatory [facility] Facility:[facility] Start: 11-14-2023 End: 11-14-[address] [facility] Work Phone: Start: 11-14-2023 End: 11-14-2023 Patient encounter procedure [facility] Start: 10-13-2023 End: 10-13-[address] [facility] Work Phone: Start: 10-13-2023 End: 10-13-2023 [facility] Start: 05-12-2023 End: 05-12-[address] [facility] Work Phone: Start: 05-12-2023 End: 05-12-2023 Patient encounter procedure [facility] Work Phone: Start: 11-11-2022 End: 11-11-[address] [facility] Work Phone: Start: 11-11-2022 End: 11-11-2022 Patient encounter procedure [facility] Start: 10-30-2022 End: 10-30-[address] [facility] Work Phone: Start: 10-30-2022 End: 10-30-2022 Patient encounter procedure [facility] Start: 08-19-2022 End: 08-19-[address] [facility] Work Phone: Start: 08-19-2022 End: 08-19-2022 Patient encounter procedure [facility] Start: 04-24-2022 End: 04-24-2022 [facility] Start: 04-02-2022 End: 04-02-2022 Patient encounter procedure [facility] Start: 08-10-2020 End: 08-10-2020 Patient encounter procedure BLANQUITA AMADOR [facility] Start: 10-15-2019 End: 10-15-2019 Patient encounter procedure LETICIA ALEXIS [facility] Start: 10-07-2019 End: 10-07-2019 Patient encounter procedure LETICIA ALEXIS [facility] Procedures Date Procedure Procedure Detail Performing Clinician Start: 10-13-2023 Screening mammography Start: 08-19-2022 Screening mammography Urine culture Plan of Treatment Date Care Activity Detail Author Human papilloma viru s 16+18+31+33+35+39+45+51+52+56+58+59+68 DNA [Presence] in Cervix by Probe with signal amplification [facility] Work Phone: Immunizations Immunization Date Immunization Notes Care Provider Josh begumty 02-08-2021 Covid (Pfizer) [facility] 01-18-2021 Covid (Pfizer) [facility] Payers Date Payer Category Payer Self-pay [id number] 2024 Unknown [id number] 1965 Unknown [id number] 2.16.84 [id number] 1965 Unknown [id number] 2.16.84 [id number] 1965 Unknown [id number] 2.16.84 [id number] Unknown [id number] Unknown [id number] 2.16.8 [id number] Unknown [id number] 2.16.8 [id number] Unknown [id number] 2.16.8 [id number] Social History Date Type Detail Facility Start: 12-01-2016 End: 12-01-2016 Tobacco smoking status OHIS Unknown if ever smoked [facility] Start: 1965 Sex Assigned At Female [facility] Clinical Notes 12-28-2020 to 04-24-2022 Note Date & Type Note Facility 04-24-[address] [facility] Work Phone: Pap Smear Specimen Adequacy April 24, 2022 11:20am Comment . Satisfactory for evaluation. Endocervical and/or squamous metaplasticcells (endocervical component) are present. Comment on above: Satisfactory for carlos luation. Endocervical and/or squamous metaplasticcells (endocervical component) are present. 09-18-2021 Note Patient Outreach (NE TNAV) ---- HYACINTH CORRIGAN ([id number]) 1965 F Date Time Provider Department 09/18/21 [...] Outcome/Action Unable to reach patient: Left message [employer] message sent Reason for Outreach Attribution: Provider [...] future healthcare decisions with a power of defense attorney, living will, or advance directives? No. [...] future healthcare decisions with a power of defense attorney, living will, or advance directives? No. 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 Author Type: ? Type: Progress [...] future healthcare decisions with a power of defense attorney, living will, or advance directives? No. Please bring a copy to your next appointment or email to [email or web address] Referrals: N/A Message Sent to Practice: NO Navigation Signature: Nely Neely Population Health Navigator September 18, 2021 11:42 AM [facility] 09-18-2021 Note HNO ID: [id number] Author: Nely Neely Population Health Navigator Service: ? Author Type: ? Type: Progress Notes Filed: 09/18/2021 10:44 AM Note Text: POPULATION HEALTH NAVIGATION OUTREACH Action/FYI I left a voice mail and a my chart message re: pcp No care everywhere Contact made with patient or family member? NO Pt identified by name and : NO Outreach Outcome/Action Unable to reach patient: Left message Dheere Bolot message sent Reason for Outreach Attribution: Provider [...] future healthcare decisions with a power of defense attorney, living will, or advance directives? No. Please bring a copy to your next appointment or email to [email or web address] Referrals: N/A Message Sent to Practice: NO Navigation Signature: Nely Neely Population Health Navigator September 18, 2021 10:44 AM [facility] 01-15-2021 Note Patient Outreach ([facility]) ---- HYACINTH CORRIGAN ([id number]) 1965 F Date Time Provider Department 01/15/21 BRIANNA DARBY ([facility] INTMAC During your visit today, we recorded the following information about you: Brianna Karina [facility] 01/15/2021 10:35 AM Signed POPULATION HEALTH NAVIGATION OUTREACH Action/FYI Mamm completed 12/28/20. No need to contact. Contact made with patient or family member? NO Pt identified by name and : NO Outreach Outcome/Action Mamm completed 12/28/20. Reason for Outreach Care Gap or Scheduling/Wellness visits Payer: Payor: [employer] / Plan: [employer] PPO / Product Type: PPO / Care Gap Reviewed:: Breast Cancer screening Reminder: Reminder note to check Health Maintenance for items below Health Maintenance items due: INFLUENZA(1) due on 07/04/2020 Advanced Directives Completed: Have you ever planned for future healthcare decisions with a power of defense attorney, living will, or advance directives? Referrals: Message Sent to Practice: Navigation Signature: Brianna Darby [facility] January 15, 2021 10:34 AM Allergies As [...] Encounter Status:Closed by BRIANNA LANDRY on 01/15/21 [facility] 01-15-2021 Note HNO ID: [id number] Author: Brianna Espinoza Service: ? Author Type: [...] future healthcare decisions with a power of defense attorney, living will, or advance directives? Referrals: Message Sent to Practice: Navigation Signature: Brianna Darby Pss January 15, 2021 10:34 AM [facility] 01-11-2021 Note HNO ID: [id number] Author: Gregg Ly III Service: ? Author Type: Physician [...] 4th and 5th fingers. 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 Hx of R thoracic syndrome. Lots of [...] 76 Resp 16 Ht 165.1 cm (5' 5) Wt 87.5 kg (193 lb) LMP 08/14/2015 [...] and treat right shoulder wellness form completed Gregg Ly III MD Medical Decision Making: Problems: Moderate: 2+ stable chronic illnesses and 1+ chronic illnesses with change Data: Unique test result(s) reviewed: 3+ Risk: Moderate: Drug management Medical Decision Making Level: 4 - Moderate Gregg Ly III MD [facility] 12-28-2020 Note ADDITIONAL PROCEDURES PRESENT Specimen originated from [facility] Specimen #: [id number] Submitting Physician: ANNA AMADOR CNP SPECIMEN SUBMITTED [...] from every slide are reviewed by a leather craftsman. YARELY Patel(ASCP) (Electronic Signature) ADDITIONAL PROCEDURE(S) HUMAN PAPILLOMA VIRUS Date Ordered: 01/01/2021 Date Reported: 01/02/2021 Procedure Results and Interpretation Negative for HPV DNA high risk type 16 by PCR. Negative for HPV DNA high risk type 18 by PCR. Negative for HPV DNA high risk types: 31,33,35,39,45,51,52,56,58,59,66,68 by PCR. This test was developed and its performance characteristics determined by [facility] [place] [facility] It has not been cleared or approved by the FDA. [facility] is regulated under CLIA as qualified to perform high-complexity testing. This test is used for clinical purposes. It should not be regarded as investigational or for research. CLINICAL DATA ROUTINE EXAM, HPV Testing: Yes, automatic HPV patients over 30 Date of Last Menstrual Period: Postmenopausal STAINS A: CERVICAL, SCREENING, FLUID THIN PREP FREE LANCE MODEL Mario Dumont M.D., Senior [employer] Developer Date of Report: 01/04/2021 Date of Procedure: 12/28/2020 Date of Receipt: 01/01/2021 Submitted by: ANNA AMADOR CNP Location: [facility] Diagnostic interpretation performed at [facility], [address] [place] [address]. CLIA Number: [id number] The Pap Smear is a screening test for cervical cancer. False negative results occur with all screening tests, emphasizing the need for rescreening at recommended intervals, and clinical correlation. [facility] 12-28-2020 Note HNO ID: [id number] Author: Anna Amador Service: ? Author Type: [...] Postmenopausal:?Yes since age?51 HRT use:?No. Last Pap:?2014?normal?? HPV:?2015?negative History of abnormal pap:?No Last mammogram:??today?pending History [...] both eyes - COLONOSCOP W/ OR W/O BRSH SPEC 12/07/15 Colonoscopy - EGD W/O BRS SPECIMEN W/BX 2002 Hiatal hernia, minimal antral [...] external genitalia normal, normal Bartholin's glands, urethra, [place]'s glands, no vulvar lesions, no cervical lesions, [...] year or sooner as needed Anna Amador APRN.[facility] 12-28-2020 Note HNO ID: [id number] Author: Marshall Dunbar (Tech) Service: ? Author Type: Rig Builder Type: Progress Notes Filed: 12/28/2020 3:07 PM [...] Marshall Dunbar December 28, 2020 2:46 PM [facility] Evaluation note No [facility] Work Phone: Summary Purpose Family History No Family History Records FoundNo Family History Records FoundNo Family History Records FoundNo Family History Records Found Advance Directives No Advanced Directives Records Found Advance Directive Response Recorded Date/ Time Advance Directives No December 01, 2016 1:53pm Living Will No December 01 1:53pm Power of Customer Service Engineer No December 01, 2016 1:53pm Advance Directive Response Recorded Date/ Time Advance Directives No December 01, 2016 12:53pm Living Will No December 01 12:53pm Power of Customer Service Engineer No December 01, 2016 12:53pm Chief Complaint and Reason for Visit Chief Complaint EORDER Chief Complaint SCREENING Chief Complaint SCREENING eorder Chief Complaint SCREENING eorder EORDER Additional Source Comments INFORMATION SOURCE (unrecogn ized section and content) DATE CREATED AUTHOR 10/20/2019 [facility] ([place]) DATE CREATED AUTHOR AUTHOR'S ORGANIZ ATION 08/17/2020 [facility] DATE CREATED AUTHOR AUTHOR'S ORGANIZ ATION 11/25/2021 [facility] DATE CREATED AUTHOR AUTHOR'S ORGANIZ ATION 05/18/2025 [facility] Goals (unrecognized section and content) Goals may be documented in a n alternate sectionGoals may be documented in an alternate sectionGoals may be documented in an alternate sectionGoals may be documented in an alternate sectionGoals may be documented in an alternate sectionGoals may be documented in an alternate sectionGoals may be documented in an alternate sectionGoals may be documented in an alternate section Care Teams (unrecognized sec tion and content) Team Status: Active Member Role Status Dates Dr. Gregg Ly III, MD Family Provider Active Dr. Bandar Ricks MD Primary Care Provider Active Team Status: Inactive Member Role Status Dates Dr. Bandar Ricks MD Primary Care Provider, Attending Provider Active Team Status: Inactive Member Role Status Dates Dr. Bandar Ricks [facility], Attending Provider, Referring Provider Active FOR RECORDS PERTAINING TO PATIENTS WHO ARE [...] BE BASED ON THE PRIMARY CLINICAL RECORDS. [email or web address] [facility]. provides no warranty or guarantee of the accuracy or completeness of information in this document.
[2025-05-19 13:06] LABS: AST(SGOT) 24 U/L (<=31); Alanine Aminotransfer ALT/SGPT 15 U/L (<=34); Albumin, Serum 4.1 g/dL (3.4-4.8); Alkaline Phosphatase 68 U/L (35-104); Anion Gap 12 (5-15); BUN 17 mg/dL (4-19); BUN/Creat Ratio 17.9 RATIO (10-20); Calcium,Total 9.5 mg/dL (7.6-11.0); Carbon Dioxide 24.1 mmol/L (21.0-32.0); Chloride 104 mmol/L (98-108); Cholesterol 162 mg/dL (<=200); Globulin 3.2 g/dL (2.2-4.2); Glucose 93 mg/dL (70-99); Low Density Lipoprotein Calc. 89 mg/dL; Potassium 4.0 mmol/L (3.3-5.1); Triglycerides 33 mg/dL; Very Low Density Lipoprotein 7 mg/dL (5-40); cholesterol:hdl ratio screen 2.44
== END | disposition home or self-care (01) ==
LOC: MTLAB 08:58
PROVIDERS: PCP Family Medicine; Referring Provider Family Medicine; Visit Provider Family Medicine
DX: I10 Essential (primary) hypertension (principal)
CPT/HCPCS: 36415; 80053; 80061

== ENCOUNTER 2025-08-22 07:39 | Day surgery (SDC) | payer OTHER, SELFPAY ==
[2025-08-22] VITALS (8 sets, daily range): BP systolic 97–117; BP diastolic 60–84; PULSE 71–90; RESP 16; TEMP 36.2–36.4; O2SAT 98–100; BMI 30.8
--- OUTSIDE RECORDS SUMMARY | 2025-08-22 07:45 | XMS RPT_ITS | CCD ---
Author Organization [facility] Care Team Providers Care Car Retarder Operator Name Role Phone LETICIA MICHAEL DPM Admitting Unavailable HORN, LETICIA DPM Attending Unavailable HORN, LETICIA DPM Primary Care Unavailable CEBUL, GREGG III Consulting Unavailable PROVIDER, UNKNOWN Consulting Unavailable HORN, LETICIA DPM Admitting Unavailable HORN, LETICIA DPM Attending Unavailable HORN, LETICIA DPM Primary Care Unavailable CEBUL, GREGG III Consulting Unavailable PROVIDER, UNKNOWN Consulting Unavailable MARJORIE, BLANQUITA Rasmussen Admitting Unavailable MARJORIE, BLANQUITA Rasmussen Attending Unavailable MARJORIE, BLANQUITA Rasmussen Primary Care Unavailable CEBUL, GREGG III Consulting Unavailable PROVIDER, UNKNOWN Consulting Unavailable Rambo BENAVIDES, Dr. Portillo Primary Care Provider Rambo BENAVIDES, Dr. Portillo Attending Provider Rambo BENAVIDES, Dr. Portillo Referring Provider [phone] Shaista Mo Attending Unavailable Ricks, Bandar Referring Unavailable Ricks, Bandar Primary Care Unavailable Ricks, Bandar Primary Care Unavailable Ricks, Bandar Attending Unavailable Ricks, Bandar Referring Unavailable Ricks, Bandar Primary Care Unavailable Ricks, Bandar Attending Unavailable Ricks, Bandar Referring Unavailable Ricks, Bandar Primary Care Unavailable Ricks, Bandar Attending Unavailable Ricks, Bandar Referring Unavailable Ricks, Bandar Primary Care Unavailable Ricks, Bandar Attending Unavailable Ricks, Bandar Referring Unavailable Ricks, Bandar Primary Care Unavailable Ricks, Bandar Attending Unavailable Ricks, Bandar Referring Unavailable Allergies Allergy Classification Reported Allergen(s) Allergy Type Date of Onset Reaction(s) Facility (10 sources) Pseudoephedrine Drug Allergy 7 Other [facility] (1 source) Pseudoephedrine Drug Allergy 5 [facility] Repository Medications Current Medications Medication Drug Class(es) Dates Sig (Normalized) Sig (Original) lisinopril 5 mg oral tablet (10 sources) Angiotensin Converting Enzyme Inhibitor Start: 12-01-2016 take 1 tablet by mouth once daily Lisinopril 5 MG tablet Active 5 mg PO DAILY December 01, 2016 1:00am ondansetron 4 mg disintegrating oral tablet (10 sources) Serotonin-3 Receptor Antagonist Start: 12-01-2016 take 1 tablet by mouth every six hours as needed for nausea Ondansetron 4 MG tablet Active 4 mg PO EVERY 6 HOURS NEEDED as needed for Nausea December 01, 2016 3:18pm pantoprazole 40 mg delayed release oral tablet (10 sources) Proton Pump Inhibitor Start: 12-01-2016 take 1 tablet by mouth once daily Pantoprazole 40 MG tablet Active 40 mg PO DAILY December 01, 2016 1:00am Problems Active Problems Problem Classification Problem Date Documented Da te Episodic/Chronic Essential hypertension (2 sources) Essential (primary) hypertension; Translations: [Essential (primary) hypertension] [...] Test Name Value Interpretation Reference Range Facility Anion gap in Serum or Plasma Ordered By: Bandar Ricks on 05-19-2025 Anion gap [Moles/Vol] 12 mmol/L 03-17 [facility] BUN/creatinine ratioOrdered By: Bandar Ricks on 05-19-2025 Urea nitrogen/Creatinine [Mass ratio] 17.9 mg/mg 08-22 [facility] Bilirubin, totalOrdered By: Bandar Ricks on 05-19-2025 Bilirubin [Mass/Vol] 0.61 mg/dL 0.00-1.30 [facility] Calculated very low density lipoprotein (VLDL) cholesterol measurementOrdered By: Bandar Ricks on 05-19-2025 Calculated very low density lipoprotein (VLDL) cholesterol measurement 7 mg/dL [facility] Carbon dioxide, total [Moles /volume] in Central venous bloodOrdered By: Bandar Ricks on 05-19-2025 CO2 [Moles/Vol] 24.1 mmol/L 21.0-32.0 [facility] Chloride assayOrdered By: Panchito Ricks on 05-19-2025 Chloride [Moles/Vol] 104 mmol/L 98-108 [facility] Comprehensive Metabolic Prof ilon 05-19-2025 Albumin [Mass/Vol] 4.1 g/dL Normal 3.4-4.8 [facility] Comment on above: Order Comment: Order Date: 05/13/25 Order Info: [id number] - CMP Order Info: [id number] - LIPID Comments: HTN, screening HTN, screening Performed By: #### L 500.4050, L500.4100 #### [facility] [address] [place], [address] Albumin/Globulin [Mass ratio] 1.3 {ratio} Normal 0.9-2.4 [facility] Comment on above: Order Comment: Order Date: 05/13/25 Order Info: 07- - CMP Order Info: [id number] - LIPID Comments: HTN, screening HTN, screening Performed By: #### L 500.4050, L500.4100 #### [facility] [address] [place], [address] ALK PHOS 68 U/L Normal 35-104 [facility] Comment on above: Order Comment: Order Date: 05/13/25 Order Info: [id number] - CMP Order Info: [id number] - LIPID Comments: HTN, screening HTN, screening Performed By: #### L 500.4050, L500.4100 #### [facility] [address] [place], [address] ALT [Catalytic activity/Vol] 15 U/L Normal <=34 [facility] Comment on above: Order Comment: Order Date: 05/13/25 Order Info: [id number] - CMP Order Info: [id number] - LIPID Comments: HTN, screening HTN, screening Performed By: #### L 500.4050, L500.4100 #### [facility] [address] [place], [address] AST [Catalytic activity/Vol] 24 U/L Normal <=31 [facility] Comment on above: Order Comment: Order Date: 05/13/25 Order Info: [id number] - CMP Order Info: [id number] - LIPID Comments: HTN, screening HTN, screening Performed By: #### L 500.4050, L500.4100 #### [facility] [address] [place], [address] Bilirubin [Mass/Vol] 0.61 mg/dL Normal 0.00-1.30 [facility] Comment on above: Order Comment: Order Date: 05/13/25 Order Info: [id number] - CMP Order Info: [id number] - LIPID Comments: HTN, screening HTN, screening Performed By: #### L 500.4050, L500.4100 #### [facility] [address] [place], [address] BUN/CRE 17.9 RATIO Normal 10-20 [facility] Comment on above: Order Comment: Order Date: 05/13/25 Order Info: 785- - CMP Order Info: [id number] - LIPID Comments: HTN, screening HTN, screening Performed By: #### L 500.4050, L500.4100 #### [facility] [address] [place], [address] Calcium [Mass/Vol] 9.5 mg/dL Normal 7.6-11.0 [facility] Comment on above: Order Comment: Order Date: 05/13/25 Order Info: [id number] - CMP Order Info: [id number] - LIPID Comments: HTN, screening HTN, screening Performed By: #### L 500.4050, L500.4100 #### [facility] [address] [place], [address] Chloride [Moles/Vol] 104 mmol/L Normal 98-108 [facility] Comment on above: Order Comment: Order Date: 05/13/25 Order Info: [id number] - CMP Order Info: [id number] - LIPID Comments: HTN, screening HTN, screening Performed By: #### L 500.4050, L500.4100 #### [facility] [address] [place], [address] CO2 [Moles/Vol] 24.1 mmol/L Normal 21.0-32.0 [facility] Comment on above: Order Comment: Order Date: 05/13/25 Order Info: [id number] - CMP Order Info: [id number] - LIPID Comments: HTN, screening HTN, screening Performed By: #### L 500.4050, L500.4100 #### [facility] [address] [place], [address] Creatinine [Mass/Vol] 0.92 mg/dL Normal 0.70-1.20 [facility] Comment on above: Order Comment: Order Date: 05/13/25 Order Info: 785- - CMP Order Info: [id number] - LIPID Comments: HTN, screening HTN, screening Performed By: #### L 500.4050, L500.4100 #### [facility] [address] [place], [address] GAP 12 Normal 5-15 [facility] Comment on above: Order Comment: Order Date: 05/13/25 Order Info: 07-1 - CMP Order Info: [id number] - LIPID Comments: HTN, screening HTN, screening Performed By: #### L 500.4050, L500.4100 #### [facility] [address] [place], [address] GFR/1.73 sq M.predicted among non-blacks MDRD (S/P/Bld) [Vol rate/Area] 70 mL/min/{1.73_m2} Normal >60 [facility] Comment on above: Order Comment: Order Date: 05/13/25 Order Info: 07-1 - CMP Order Info: [id number] - LIPID Comments: HTN, screening HTN, screening Result Comment: mL/m in/1.73m2 CKD-EPI Creatinine Equation (2021) Performed By: #### L 500.4050, L500.4100 #### [facility] [address] [place], [address] Globulin (S) [Mass/Vol] 3.2 g/dL Normal 2.2-4.2 [facility] Comment on above: Order Comment: Order Date: 05/13/25 Order Info: 07- - CMP Order Info: [id number] - LIPID Comments: HTN, screening HTN, screening Performed By: #### L 500.4050, L500.4100 #### [facility] [address] [place], [address] Glucose [Mass/Vol] 93 mg/dL Normal 70-99 [facility] Comment on above: Order Comment: Order Date: 05/13/25 Order Info: 07- - CMP Order Info: [id number] - LIPID Comments: HTN, screening HTN, screening Performed By: #### L 500.4050, L500.4100 #### [facility] [address] [place], [address] Potassium [Moles/Vol] 4.0 mmol/L Normal 3.3-5.1 [facility] Comment on above: Order Comment: Order Date: 05/13/25 Order Info: [id number]- - CMP Order Info: [id number] - LIPID Comments: HTN, screening HTN, screening Performed By: #### L 500.4050, L500.4100 #### [facility] [address] [place], [address] Sodium [Moles/Vol] 140 mmol/L Normal 133-145 [facility] Comment on above: Order Comment: Order Date: 05/13/25 Order Info: 0786- - CMP Order Info: [id number] - LIPID Comments: HTN, screening HTN, screening Performed By: #### L 500.4050, L500.4100 #### [facility] [address] [place], [address] T PROT 7.3 g/dL Normal 5.9-8.4 [facility] Comment on above: Order Comment: Order Date: 05/13/25 Order Info: [id number] - CMP Order Info: [id number] - LIPID Comments: HTN, screening HTN, screening Performed By: #### L 500.4050, L500.4100 #### [facility] [address] [place], [place], [address] Urea nitrogen [Mass/Vol] 17 mg/dL Normal 4-19 [facility] Comment on above: Order Comment: Order Date: 05/13/25 Order Info: [id number]- - CMP Order Info: [id number] - LIPID Comments: HTN, screening HTN, screening Performed By: #### L 500.4050, L500.4100 #### [facility] [address] [place], [place], [address] Glomerular filtration rate ( GFR) estimation/1.73 sq m using serum, plasma, or whole bOrdered By: Bandar Ricks on 05-19-2025 GFR/1.73 sq M.predicted among non-blacks MDRD (S/P/Bld) [Vol rate/Area] 70 mL/min/{1.73_m2} >60 [facility] Comment on above: mL/min/1.73m2 CKD-EP I Creatinine Equation (2020) LDL calc ser/plasOrdered By: Bnadar Ricks on 05-19-2025 Cholesterol in LDL [Mass/Vol] 89 mg/dL [facility] Comment on above: Zybokrwuzt=544-906 m g/dL & Higher Cwmq=433 mg/dL or greater Laboratory - Chemistry and C hemistry - challengeOrdered By: Bandar Ricks on 05-19-2025 AST [Catalytic activity/Vol] 24 U/L <32 [facility] Lipid Profileon 05-19-2025 CHOL:HDL 2.44 Normal [facility] Comment on above: Order Comment: Order Date: 05/13/25 Order Info: [id number] - CMP Order Info: [id number] - LIPID Comments: HTN, screening Performed By: #### L 500.4050, L500.4100 #### [facility] [address] [place], [address] Cholesterol [Mass/Vol] 162 mg/dL Normal <=200 [facility] Comment on above: Order Comment: Order Date: 05/13/25 Order Info: [id number] - CMP Order Info: [id number] - LIPID Comments: HTN, screening Result Comment: Chol esterol level, Desirable <200 mg/dL Borderline high cholesterol 200-239 mg/dL High cholesterol >=240 mg/dL Recommendations of the NCEP Adult Treatment Panel for the following risk-cutoff thresholds for the [place] population. Performed By: #### L 500.4050, L500.4100 #### [facility] [address] [place], [address] Cholesterol in HDL [Mass/Vol] 67 mg/dL Normal [facility] Comment on above: Order Comment: Order Date: 05/13/25 Order Info: 0786- - [facility] Order Info: [id number] - LIPID Comments: HTN, screening Result Comment: [place] onal Cholesterol Education Program (NCEP) guidelines: <40 mg/dL: Low HDL-cholesterol (major risk factor for CHD) >= 60 mg/dL: High HDL-cholesterol (negative risk factor for CHD) HDL-cholesterol is affected by a number of factors, e.g. smoking, exercise, hormones, sex and age. Performed By: #### L 500.4050, L500.4100 #### [facility] [address] [place], [address] Cholesterol in LDL [Mass/Vol] 89 mg/dL Normal [facility] Comment on above: Order Comment: Order Date: 05/13/25 Order Info: [id number] - [facility] Order Info: [id number] - LIPID Comments: HTN, screening Result Comment: Bord tjblwu=195-440 mg/dL Higher Fvkt=537 mg/dL or greater Performed By: #### L 500.4050, L500.4100 #### [facility] [address] [place], [address] Cholesterol in VLDL [Mass/Vol] 7 mg/dL Normal 5-40 [facility] Comment on above: Order Comment: Order Date: 05/13/25 Order Info: [id number] - CMP Order Info: [id number] - LIPID Comments: HTN, screening Performed By: #### L 500.4050, L500.4100 #### [facility] [address] [place], [place], [address] Triglyceride [Mass/Vol] 33 mg/dL Normal [facility] Comment on above: Order Comment: Order Date: 05/13/25 Order Info: [id number] - CMP Order Info: [id number] - LIPID Comments: HTN, screening Result Comment: The drugs N-Acetylcysteine and Metamizole may falsely depress this assay. Normal range: <150 mg/dL Borderline High: 150-199 mg/dL High: 200-499 mg/dL Very High: >500 mg/dL Performed By: #### L 500.4050, L500.4100 #### [facility] [address] [place], [place], [address] Potassium measurement (mass/ volume)Ordered By: Bandar Ricks on 05-19-2025 Potassium (Unsp spec) [Mass/Vol] 4.0 mmol/L 3.3-5.1 [facility] Screening total cholesterol/ high density lipoprotein (HDL) cholesterol ratioOrdered By: Bandar Ricks on 05-19-2025 Cholesterol.total/Choles terol in HDL [Mass ratio] 2.44 {ratio} [facility] Serum creatinine measurement (mass/volume)Ordered By: Bandar Ricks on 05-19-2025 Creatinine [Mass/Vol] 0.92 mg/dL 0.70-1.20 [facility] Serum globulin measurementOr dered By: Bandar Ricks on 05-19-2025 Globulin (S) [Mass/Vol] 3.2 g/dL 2.2-4.2 [facility] Serum glucose measurement (m ass/volume)Ordered By: Bandar Ricks on 05-19-2025 Glucose [Mass/Vol] 93 mg/dL 70-99 [facility] Serum or plasma alanine jones otransferase (ALT) measurementOrdered By: Bandar Ricks on 05-19-2025 ALT [Catalytic activity/Vol] 15 U/L <35 [facility] Serum or plasma albumin angelito urement (mass/volume)Ordered By: Bandar Ricks on 05-19-2025 Albumin [Mass/Vol] 4.1 g/dL 3.4-4.8 [facility] Serum or plasma albumin/glob ulin mass ratioOrdered By: Bandar Ricks on 05-19-2025 Albumin/Globulin [Mass ratio] 1.3 {ratio} 0.9-2.4 [facility] Serum or plasma alkaline greer sphatase measurementOrdered By: Bandar Ricks on 05-19-2025 ALP [Catalytic activity/Vol] 68 U/L 35-104 [facility] Serum or plasma calcium angelito urement (mass/volume)Ordered By: Bandar Ricks on 05-19-2025 Calcium [Mass/Vol] 9.5 mg/dL 7.6-11.0 [facility] Serum or plasma cholesterol in HDL measurement (mass/volume)Ordered By: Bandar Ricks on 05-19-2025 Cholesterol in HDL [Mass/Vol] 67 mg/dL >40 [facility] Comment on above: National Cholesterol Education Program (NCEP) guidelines:<40 mg/dL: Low HDL-cholesterol (major risk factor for CHD)>= 60 mg/dL: High HDL-cholesterol (negative risk factor for CHD)HDL-cholesterol is affected by a number of factors, e.g. smoking, exercise, hormones, sex and age. Serum or plasma cholesterol measurement (mass/volume)Ordered By: Bandar Ricks on 05-19-2025 Cholesterol [Mass/Vol] 162 mg/dL <201 [facility] Comment on above: Cholesterol level, D esirable <200 mg/dLBorderline high cholesterol 200-239 mg/dLHigh cholesterol >=240 mg/dLRecommendations of the NCEP Adult Treatment Panel for the following risk-cutoff thresholds for the [place] population. Serum or plasma urea nitroge n measurement (mass/volume)Ordered By: Bandar Ricks on 05-19-2025 Urea nitrogen [Mass/Vol] 17 mg/dL 4-19 [facility] Sodium levelOrdered By: Bandar Ricks on 05-19-2025 Sodium [Moles/Vol] 140 mmol/L 133-145 [facility] Total proteinOrdered By: Ca Ricks on 05-19-2025 Protein [Mass/Vol] 7.3 g/dL 5.9-8.4 [facility] Triglycerides measurementOrd ered By: Bandar Ricks on 05-19-2025 Triglyceride [Mass/Vol] 33 mg/dL <199 [facility] Comment on above: The drugs N-Acetylcy steine and Metamizole may falsely depress this assay. Normal range: <150 mg/dLBorderline High: 150-199 mg/dLHigh: 200-499 mg/dLVery High: >500 mg/dL Comprehensive Metabolic Prof ilon 11-16-2024 Albumin [Mass/Vol] 3.8 g/dL Normal 3.2-5.0 [facility] Comment on above: Order Comment: Order Date: 10/20/24 Order Info: [id number] - CMP Order Info: [id number] - LIPID Performed By: #### L 500.4100, L500.4050 #### [facility] [address] [place], [address] Albumin/Globulin [Mass ratio] 1.0 {ratio} Normal 0.9-2.4 [facility] Comment on above: Order Comment: Order Date: 10/20/24 Order Info: [id number] - CMP Order Info: [id number] - LIPID Performed By: #### L 500.4100, L500.4050 #### [facility] [address] [place], [address] ALK P 72 U/L Normal 45-117 [facility] Comment on above: Order Comment: Order Date: 10/20/24 Order Info: [id number] - CMP Order Info: [id number] - LIPID Performed By: #### L 500.4100, L500.4050 #### [facility] [address] [place], [address] ALT [Catalytic activity/Vol] 35 U/L Normal 13-56 [facility] Comment on above: Order Comment: Order Date: 10/20/24 Order Info: [id number]- - CMP Order Info: [id number] - LIPID Performed By: #### L 500.4100, L500.4050 #### [facility] [address] [place], [address] AST [Catalytic activity/Vol] 27 U/L Normal 15-37 [facility] Comment on above: Order Comment: Order Date: 10/20/24 Order Info: 785- - CMP Order Info: [id number] - LIPID Performed By: #### L 500.4100, L500.4050 #### [facility] [address] [place], [address] Bilirubin [Mass/Vol] 0.60 mg/dL Normal 0.20-1.00 [facility] Comment on above: Order Comment: Order Date: 10/20/24 Order Info: 785- - CMP Order Info: [id number] - LIPID Result Comment: For patients on eltrombopag therapy, use of Dimension [place] TBIL is not recommended. Performed By: #### L 500.4100, L500.4050 #### [facility] [address] [place], [address] BUN/CRE 16.7 RATIO Normal 10-20 [facility] Comment on above: Order Comment: Order Date: 10/20/24 Order Info: [id number]- - CMP Order Info: [id number] - LIPID Performed By: #### L 500.4100, L500.4050 #### [facility] [address] [place], [address] CA,Total 9.0 mg/dL Normal 8.5-10.1 [facility] Comment on above: Order Comment: Order Date: 10/20/24 Order Info: [id number] - CMP Order Info: [id number] - LIPID Performed By: #### L 500.4100, L500.4050 #### [facility] [address] [place], [address] Chloride [Moles/Vol] 107 mmol/L Normal 98-107 [facility] Comment on above: Order Comment: Order Date: 10/20/24 Order Info: 785- - CMP Order Info: [id number] - LIPID Performed By: #### L 500.4100, L500.4050 #### [facility] [address] [place], [address] CO2 [Moles/Vol] 28.0 mmol/L Normal 21.0-32.0 [facility] Comment on above: Order Comment: Order Date: 10/20/24 Order Info: [id number] - CMP Order Info: [id number] - LIPID Performed By: #### L 500.4100, L500.4050 #### [facility] [address] [place], [address] Creatinine [Mass/Vol] 0.96 mg/dL Normal 0.55-1.02 [facility] Comment on above: Order Comment: Order Date: 10/20/24 Order Info: [id number] - CMP Order Info: [id number] - LIPID Result Comment: The validity of the calculated GFR GFRAA in patients over 70 years has not been determined. Clinical correlation is essential. Performed By: #### L 500.4100, L500.4050 #### [facility] [address] [place], [address] EST GFR - AA 76 mL/min Normal >60 [facility] Comment on above: Order Comment: Order Date: 10/20/24 Order Info: 07 - CMP Order Info: [id number] - LIPID Result Comment: Afri can [place] GFR Calc Performed By: #### L 500.4100, L500.4050 #### [facility] [address] [place], [address] GAP 3 Low 5-15 [facility] Comment on above: Order Comment: Order Date: 10/20/24 Order Info: 07-1 - CMP Order Info: [id number] - LIPID Performed By: #### L 500.4100, L500.4050 #### [facility] [address] [place], [address] GFR/1.73 sq M.predicted among non-blacks MDRD (S/P/Bld) [Vol rate/Area] 63 mL/min/{1.73_m2} Normal >60 [facility] Comment on above: Order Comment: Order Date: 10/20/24 Order Info: [id number] - CMP Order Info: [id number] - LIPID Result Comment: Non- GFR Calc Performed By: #### L 500.4100, L500.4050 #### [facility] [address] [place], [address] Globulin (S) [Mass/Vol] 3.8 g/dL Normal 2.2-4.2 [facility] Comment on above: Order Comment: Order Date: 10/20/24 Order Info: 0786- - CMP Order Info: [id number] - LIPID Performed By: #### L 500.4100, L500.4050 #### [facility] [address] [place], [address] Glucose [Mass/Vol] 113 mg/dL High 74-106 [facility] Comment on above: Order Comment: Order Date: 10/20/24 Order Info: [id number] - CMP Order Info: [id number] - LIPID Result Comment: Fast ing Glucose result from 100 to 125 mg/dL suggests IMPAIRED HOMEOSTASIS per A.D.A. criteria. Performed By: #### L 500.4100, L500.4050 #### [facility] [address] [place], [address] Potassium [Moles/Vol] 3.6 mmol/L Normal 3.5-5.1 [facility] Comment on above: Order Comment: Order Date: 10/20/24 Order Info: [id number] - CMP Order Info: [id number] - LIPID Performed By: #### L 500.4100, L500.4050 #### [facility] [address] [place], [address] Sodium [Moles/Vol] 138 mmol/L Normal 136-145 [facility] Comment on above: Order Comment: Order Date: 10/20/24 Order Info: [id number] - CMP Order Info: [id number] - LIPID Performed By: #### L 500.4100, L500.4050 #### [facility] [address] [place], [address] T PROT 7.6 g/dL Normal 6.4-8.2 [facility] Comment on above: Order Comment: Order Date: 10/20/24 Order Info: 0786 - CMP Order Info: [id number] - LIPID Performed By: #### L 500.4100, L500.4050 #### [facility] [address] [place], [address] Urea nitrogen [Mass/Vol] 16 mg/dL Normal 7-18 [facility] Comment on above: Order Comment: Order Date: 10/20/24 Order Info: 0786 - CMP Order Info: [id number] - LIPID Performed By: #### L 500.4100, L500.4050 #### [facility] [address] [place], [address] Lipid Profileon 11-16-2024 Cholesterol [Mass/Vol] 157 mg/dL Normal 200 [facility] Comment on above: Order Comment: Order Date: 10/20/24 Order Info: [id number] - CMP Order Info: [id number] - LIPID Result Comment: <200 mg/dL Desirable 200-240 mg/dL Borderline >240 mg/dL High Risk Performed By: #### L 500.4100, L500.4050 #### [facility] [address] [place], [address] Cholesterol in HDL [Mass/Vol] 59 mg/dL Normal [facility] Comment on above: Order Comment: Order Date: 10/20/24 Order Info: [id number] - CMP Order Info: [id number] - LIPID Result Comment: The drugs N-Acetylcysteine and Metamizole may falsely depress this assay. Reference Range HDL <40 mg/dL Low HDL Cholesterol HDL >or= 60 mg/dL High HDL Cholesterol Performed By: #### L 500.4100, L500.4050 #### [facility] [address] [place], [address] Cholesterol in LDL [Mass/Vol] 85 mg/dL Normal 0-130 [facility] Comment on above: Order Comment: Order Date: 10/20/24 Order Info: [id number] - CMP Order Info: [id number] - LIPID Performed By: #### L 500.4100, L500.4050 #### [facility] [address] [place], [address] Cholesterol in VLDL [Mass/Vol] 13 mg/dL Normal 5-40 [facility] Comment on above: Order Comment: Order Date: 10/20/24 Order Info: [id number] - [facility] Order Info: [id number] - LIPID Performed By: #### L 500.4100, L500.4050 #### [facility] [address] [place], [address] Triglyceride [Mass/Vol] 66 mg/dL Normal [facility] Comment on above: Order Comment: Order Date: 10/20/24 Order Info: [id number] - CMP Order Info: [id number] - LIPID Result Comment: The drugs N-Acetylcysteine and Metamizole may falsely depress this assay. Serum Triglycerides Reference Interval Normal <150 mg/dL Borderline high 150 - 199 mg/dL High 200 - 499 mg/dL Very High > or = 500 mg/dL Performed By: #### L 500.4100, L500.4050 #### [facility] [address] [place], [address] Prothrombin Time w/INRon INR Normal [facility] Comment on above: Result Comment: NOT CORRECT PT Performed By: #### L 300.3900 #### [facility] [address] [place], [address] PROTIME Normal 11.7-14.9 [facility] Comment on above: Result Comment: NOT CORRECT PT Performed By: #### L 300.3900 #### [facility] [address] [place], [address] Dexa Bone Density Studyon Dexa Bone Density Study [facility] Imaging Services [address] [place] [place] [address] Dexa Bone Density Study MR#: [id number] Acct: [id number] Name: HYACINTH CORRIGAN Rep #: [id number] : 1965 F 59 From: Samuel north MD PCP: Dr. Bandar Ricks MD Status: [facility] Study: Dexa Bone Density Study Date of Exam: 10/20/24 Exam# [id number] Ordering Dr: Bandar Ricks MD [id number] STUDY: DUAL ENERGY X-RAY ABSORPTIOMETRY / DXA [...] EST , CC: Dr. Bandar Ricks MD Chair Maker: Signed Normal [facility] SCRN MAMM (CAD)W/JAYMIE Stein n 10-20-2024 SCRN MAMM (CAD)W/JAYMIE SALIMA [facility] Imaging Services [address] [place], [place] [address] SCRN MAMM (CAD)W/JAYMIE BORREGO MR#: [id number] Acct: [id number] Name: HYACINTH CORRIGAN Rep #: [id number] : 1965 F 59 From: Samuel north MD PCP: Dr. Bandar Ricks MD Status: [facility] Study: SCRN MAMM (CAD)W/JAYMIE BILAT Date of Exam: 10/03 06/26 Exam# [id number] Ordering Dr: Bandar Ricks MD [id number] MAMMOGRAPHY - BILATERAL SCREENING REASON FOR EXAM: [...] delay biopsy of a clinically suspicious abnormality. [id number] Electronically Signed: Samuel Bauer MD at 10:29 EST , CC: Dr. Bandar Ricks MD Chair Maker: Signed Normal [facility] Basophil percentageOrdered B y: Bandar Ricks on 11-14-2023 Bilirubin [Mass/Vol] 0.70 mg/dL 0.20-1.00 [facility] Comment on above: For patients on eltr ombopag therapy, use of Dimension [place] TBIL is not recommended. Chloride [Moles/Vol] 108 mmol/L 98-107 [facility] Cholesterol [Mass/Vol] 130 mg/dL <200 [facility] Comment on above: <200 mg/dL Desirable 200-240 mg/dL Borderline >240 mg/dL High Risk Glucose [Mass/Vol] 102 mg/dL 74-106 [facility] Comment on above: Fasting Glucose resu lt from 100 to 125 mg/dL suggests IMPAIRED HOMEOSTASIS per A.D.A. criteria. Potassium [Moles/Vol] 4.1 mmol/L 3.5-5.1 [facility] Protein [Mass/Vol] 6.9 g/dL 6.4-8.2 [facility] Sodium [Moles/Vol] 140 mmol/L 136-145 [facility] Triglyceride [Mass/Vol] 56 mg/dL <199 [facility] Comment on above: The drugs N-Acetylcy steine and Metamizole may falsely depress this assay.Serum Triglycerides Reference Interval Normal <150 mg/dL Borderline high 150 - 199 mg/dL High 200 - 499 mg/dL Very High > or = 500 mg/dL Laboratory - Chemistry and C hemistry - challengeOrdered By: Bandar Ricks on 11-14-2023 ALP [Catalytic activity/Vol] 61 U/L 45-117 [facility] ALT [Catalytic activity/Vol] 29 U/L 13-56 [facility] CO2 [Moles/Vol] 25.0 mmol/L 21.0-32.0 [facility] Globulin (S) [Mass/Vol] 3.3 g/dL 2.2-4.2 [facility] Urea nitrogen/Creatinine [Mass ratio] 18.4 mg/mg 10-20 [facility] No Panel InformationOrdered By: Bandar Ricks on 11-14-2023 Estimated GFR (MDRD) Amer 85 mL/min >60 [facility] Comment on above: GFR Calc Estimated GFR (MDRD) Non-Af Amer 71 mL/min >60 [facility] Comment on above: Non- GFR Calc Serum or plasma albumin angelito urement (mass/volume)Ordered By: Bandar Ricks on 11-14-2023 Albumin [Mass/Vol] 3.6 g/dL 3.2-5.0 [facility] Serum or plasma albumin/glob ulin mass ratioOrdered By: Bandar Ricks on 11-14-2023 Albumin/Globulin [Mass ratio] 1.1 {ratio} 0.9-2.4 [facility] Serum or plasma calcium angelito urement (mass/volume)Ordered By: Bandar Ricks on 11-14-2023 Calcium [Mass/Vol] 9.1 mg/dL 8.5-10.1 [facility] Serum or plasma cholesterol in HDL measurement (mass/volume)Ordered By: Bandar Ricks on 11-14-2023 Cholesterol in HDL [Mass/Vol] 58 mg/dL >40 [facility] Comment on above: The drugs N-Acetylcy steine and Metamizole may falsely depress this assay. Reference Range HDL <40 mg/dL Low HDL Cholesterol HDL >or= 60 mg/dL High HDL Cholesterol Serum or plasma cholesterol in VLDL measurement (mass/volume)Ordered By: Bandar Ricks on 11-14-2023 Cholesterol in VLDL [Mass/Vol] 11 mg/dL 5-40 [facility] Serum or plasma creatinine m easurement (mass/volume)Ordered By: Bandar Ricks on 11-14-2023 Creatinine [Mass/Vol] 0.87 mg/dL 0.55-1.02 [facility] Comment on above: The validity of the calculated GFR & GFRAA in patients over 70 years has not been determined. Clinical correlation is essential. Serum or plasma low density lipoprotein (LDL) cholesterol measurement (mass/volume)Ordered By: Bandar Ricks on 11-14-2023 Cholesterol in LDL [Mass/Vol] 61 mg/dL 0-130 [facility] Serum or plasma urea nitroge n measurement (mass/volume)Ordered By: Bandar Ricks on 11-14-2023 Urea nitrogen [Mass/Vol] 16 mg/dL 7-18 [facility] Thin prep Papanicolaou smear with manual screeningOrdered By: Bandar Rciks on 11-14-2023 Thin prep Papanicolaou smear with manual screening 24 U/L 15-37 [facility] Thin prep Papanicolaou smear with manual screening 7 5-15 [facility] Basophil percentageOrdered B y: Bandar Ricks on 05-12-2023 Bilirubin [Mass/Vol] 0.80 mg/dL 0.20-1.00 [facility] Comment on above: For patients on eltr ombopag therapy, use of Dimension [place] TBIL is not recommended. Chloride [Moles/Vol] 106 mmol/L 98-107 [facility] Cholesterol [Mass/Vol] 141 mg/dL <200 [facility] Comment on above: <200 mg/dL Desirable 200-240 mg/dL Borderline >240 mg/dL High Risk Glucose [Mass/Vol] 99 mg/dL 74-106 [facility] Potassium [Moles/Vol] 3.9 mmol/L 3.5-5.1 [facility] Protein [Mass/Vol] 7.6 g/dL 6.4-8.2 [facility] Sodium [Moles/Vol] 136 mmol/L 136-145 [facility] Triglyceride [Mass/Vol] 39 mg/dL <199 [facility] Comment on above: The drugs N-Acetylcy steine and Metamizole may falsely depress this assay.Serum Triglycerides Reference Interval Normal <150 mg/dL Borderline high 150 - 199 mg/dL High 200 - 499 mg/dL Very High > or = 500 mg/dL Laboratory - Chemistry and C hemistry - challengeOrdered By: Bandar Ricks on 05-12-2023 ALP [Catalytic activity/Vol] 67 U/L 45-117 [facility] ALT [Catalytic activity/Vol] 34 U/L 13-56 [facility] CO2 [Moles/Vol] 26.0 mmol/L 21.0-32.0 [facility] Globulin (S) [Mass/Vol] 3.8 g/dL 2.2-4.2 [facility] Urea nitrogen/Creatinine [Mass ratio] 15.3 mg/mg 10-20 [facility] No Panel InformationOrdered By: Bandar Ricks on 05-12-2023 Estimated GFR (MDRD) Amer 75 mL/min >60 [facility] Comment on above: GFR Calc Estimated GFR (MDRD) Non-Af Amer 62 mL/min >60 [facility] Comment on above: Non- GFR Calc Serum or plasma albumin angelito urement (mass/volume)Ordered By: Bandar Ricks on 05-12-2023 Albumin [Mass/Vol] 3.8 g/dL 3.2-5.0 [facility] Serum or plasma albumin/glob ulin mass ratioOrdered By: Bandar Ricks on 05-12-2023 Albumin/Globulin [Mass ratio] 1.0 {ratio} 0.9-2.4 [facility] Serum or plasma calcium angelito urement (mass/volume)Ordered By: Bandar Ricks on 05-12-2023 Calcium [Mass/Vol] 9.0 mg/dL 8.5-10.1 [facility] Serum or plasma cholesterol in HDL measurement (mass/volume)Ordered By: Bandar Ricks on 05-12-2023 Cholesterol in HDL [Mass/Vol] 67 mg/dL >40 [facility] Comment on above: The drugs N-Acetylcy steine and Metamizole may falsely depress this assay. Reference Range HDL <40 mg/dL Low HDL Cholesterol HDL >or= 60 mg/dL High HDL Cholesterol Serum or plasma cholesterol in VLDL measurement (mass/volume)Ordered By: Bandar Ricks on 05-12-2023 Cholesterol in VLDL [Mass/Vol] 8 mg/dL 5-40 [facility] Serum or plasma creatinine m easurement (mass/volume)Ordered By: Bandar Ricks on 05-12-2023 Creatinine [Mass/Vol] 0.98 mg/dL 0.55-1.02 [facility] Comment on above: The validity of the calculated GFR & GFRAA in patients over 70 years has not been determined. Clinical correlation is essential. Serum or plasma low density lipoprotein (LDL) cholesterol measurement (mass/volume)Ordered By: Bandar Ricks on 05-12-2023 Cholesterol in LDL [Mass/Vol] 66 mg/dL 0-130 [facility] Serum or plasma urea nitroge n measurement (mass/volume)Ordered By: Bandar Ricks on 05-12-2023 Urea nitrogen [Mass/Vol] 15 mg/dL 7-18 [facility] Thin prep Papanicolaou smear with manual screeningOrdered By: Bandar Ricks on 05-12-2023 Thin prep Papanicolaou smear with manual screening 29 U/L 15-37 [facility] Thin prep Papanicolaou smear with manual screening 4 5-15 [facility] Culture, urineOrdered By: Dr Luther Ricks on 11-12-2022 Bacteria identified Cx Nom (U) Positive [facility] Basophil percentageOrdered B y: Dr. Ricks on 11-11-2022 Basophil percentage 0-5 SEEN /hpf 0-5 [facility] Bilirubin Test strip Ql (U)O rdered By: Dr. Ricks on 11-11-2022 Bilirubin Ql (U) Negative Negative [facility] Ketones Test strip Ql (U)Ord ered By: Dr. Ricks on 11-11-2022 Ketones Ql (U) Negative Negative [facility] Mucus LM Ql (Urine sed)Order ed By: Dr. Ricks on 11-11-2022 Mucus Ql (Urine sed) 0 SEEN /hpf [facility] Nitrite Test strip Ql (U)Ord ered By: Dr. Ricks on 11-11-2022 Nitrite Ql (U) Negative Negative [facility] Protein Test strip Ql (U)Ord ered By: Dr. Ricks on 11-11-2022 Protein Ql (U) Negative Negative [facility] Squamous epithelial cells de tection in urine sediment by light microscopyOrdered By: Dr. Ricks on 11-11-2022 Epithelial cells.squamous LM Ql (Urine sed) 0-5 SEEN /hpf 5-10 [facility] Urine blood detectionOrdered By: Dr. Ricks on 11-11-2022 RBC Ql (U) 25 /ul Negative [facility] RBC Ql (U) 0-5 SEEN /hpf 0-5 [facility] Urine clarityOrdered By: Dr. Ricks on 11-11-2022 Clarity (U) Sl. Cloudy Clear [facility] Urine color determinationOrd ered By: Dr. Ricks on 11-11-2022 Color (U) Straw Yellow [facility] Urine glucose detectionOrder ed By: Dr. Ricks on 11-11-2022 Glucose Ql (U) Normal mg/dl Normal [facility] Urine leukocyte esterase det ection by dipstickOrdered By: Dr. Ricks on 11-11-2022 Leukocyte esterase Test strip Ql (U) 25 /ul Negative [facility] Urine pHOrdered By: Dr. Neptali madison on 11-11-2022 pH (U) 7.0 [pH] 5.0 - 8.0 [facility] Urine sediment bacteria coun t by microscopy (number/high power field)Ordered By: Dr. Ricks on 11-11-2022 Bacteria LM.HPF (Urine sed) [#/Area] 0 /[HPF] None Seen [facility] Urine specific gravity measu rementOrdered By: Dr. Ricks on 11-11-2022 Specific gravity (U) [Rel density] 1.005 1.002-1.030 [facility] Urobilinogen Auto test strip Ql (U)Ordered By: Dr. Ricks on 11-11-2022 Urobilinogen Ql (U) Normal mg/dl Normal [facility] Basophil percentageOrdered B y: Dr. Ricks on 10-30-2022 Chloride [Moles/Vol] 106 mmol/L 98-107 [facility] Cholesterol [Mass/Vol] 171 mg/dL <200 [facility] Comment on above: <200 mg/dL Desirable 200-240 mg/dL Borderline >240 mg/dL High Risk Glucose [Mass/Vol] 104 mg/dL 74-106 [facility] Comment on above: Fasting Glucose resu lt from 100 to 125 mg/dL suggests IMPAIRED HOMEOSTASIS per A.D.A. criteria. Potassium [Moles/Vol] 3.7 mmol/L 3.5-5.1 [facility] Sodium [Moles/Vol] 140 mmol/L 136-145 [facility] Triglyceride [Mass/Vol] 57 mg/dL <199 [facility] Comment on above: The drugs N-Acetylcy steine and Metamizole may falsely depress this assay.Serum Triglycerides Reference Interval Normal <150 mg/dL Borderline high 150 - 199 mg/dL High 200 - 499 mg/dL Very High > or = 500 mg/dL Laboratory - Chemistry and C hemistry - challengeOrdered By: Dr. Ricks on 10-30-2022 CO2 [Moles/Vol] 28.0 mmol/L 21.0-32.0 [facility] Urea nitrogen/Creatinine [Mass ratio] 15.4 mg/mg 10-20 [facility] No Panel InformationOrdered By: Dr. Ricks on 10-30-2022 Estimated GFR (MDRD) Amer 81 mL/min >60 [facility] Comment on above: GFR Calc Estimated GFR (MDRD) Non-Af Amer 67 mL/min >60 [facility] Comment on above: Non- GFR Calc Serum or plasma calcium angelito urement (mass/volume)Ordered By: Dr. Ricks on 10-30-2022 Calcium [Mass/Vol] 9.0 mg/dL 8.5-10.1 [facility] Serum or plasma cholesterol in HDL measurement (mass/volume)Ordered By: Dr. Ricks on 10-30-2022 Cholesterol in HDL [Mass/Vol] 67 mg/dL >40 [facility] Comment on above: The drugs N-Acetylcy steine and Metamizole may falsely depress this assay. Reference Range HDL <40 mg/dL Low HDL Cholesterol HDL >or= 60 mg/dL High HDL Cholesterol Serum or plasma cholesterol in VLDL measurement (mass/volume)Ordered By: Dr. Ricks on 10-30-2022 Cholesterol in VLDL [Mass/Vol] 11 mg/dL 5-40 [facility] Serum or plasma creatinine m easurement (mass/volume)Ordered By: Dr. Ricks on 10-30-2022 Creatinine [Mass/Vol] 0.91 mg/dL 0.55-1.02 [facility] Comment on above: The validity of the calculated GFR & GFRAA in patients over 70 years has not been determined. Clinical correlation is essential. Serum or plasma low density lipoprotein (LDL) cholesterol measurement (mass/volume)Ordered By: Dr. Ricks on 10-30-2022 Cholesterol in LDL [Mass/Vol] 93 mg/dL 0-130 [facility] Serum or plasma urea nitroge n measurement (mass/volume)Ordered By: Dr. Ricks on 10-30-2022 Urea nitrogen [Mass/Vol] 14 mg/dL 7-18 [facility] Thin prep Papanicolaou smear with manual screeningOrdered By: Dr. Ricks on 10-30-2022 Thin prep Papanicolaou smear with manual screening 6 5-15 [facility] Cervical or vagninal specime n microscopic examination by cytology stain (reported ason 04-24-2022 Cytology report Cyto stain Doc (Cvx/Vag) Comment . [facility] Work Phone: Comment on above: The Pap smear is a s creening test designed to aid in thedetection of premalignant and malignant conditions of theuterine cervix. It is not a diagnostic procedure andshould not be used as the sole means of detecting cervicalcancer. Both false-positive and false-negative reports dooccur. Laboratory - Cytologyon 04-04 Police Magistrate Cyto stain Nom (Cvx/Vag) [ID] Comment . [facility] Work Phone: Comment on above: John Redd, Cyto technologist (ASCP) Laboratory - Miscellaneous t estson 04-24-2022 Service comment (Unsp spec) [Interp] Comment . [facility] Work Phone: Comment on above: This liquid based Th inPrep(R) pap test was screened withthe use of an image guided system. Service comment (Unsp spec) [Interp] . . [facility] Work Phone: No Panel Informationon 04-24 Pathology report final diagnosis Narrative Comment . [facility] Work Phone: Comment on above: NEGATIVE FOR INTRAEP ITHELIAL LESION OR MALIGNANCY. Basophil percentageon 2021 Chloride [Moles/Vol] 109 mmol/L 98-107 [facility] Work Phone: Glucose [Mass/Vol] 100 mg/dL 74-106 [facility] Work Phone: Comment on above: Fasting Glucose resu lt from 100 to 125 mg/dL suggests IMPAIRED HOMEOSTASIS per A.D.A. criteria. Potassium [Moles/Vol] 4.1 mmol/L 3.5-5.1 [facility] Work Phone: Sodium [Moles/Vol] 140 mmol/L 136-145 [facility] Work Phone: Laboratory - Chemistry and C hemistry - challengeon 04-02-2022 CO2 [Moles/Vol] 28.0 mmol/L 21.0-32.0 [facility] Work Phone: Urea nitrogen/Creatinine [Mass ratio] 23.0 mg/mg 10-20 [facility] Work Phone: No Panel Informationon 04-02 Estimated GFR (MDRD) Amer 77 mL/min >60 [facility] Work Phone: Comment on above: GFR Calc Estimated GFR (MDRD) Non-Af Amer 63 mL/min >60 [facility] Work Phone: Comment on above: Non- GFR Calc Serum or plasma calcium angelito urement (mass/volume)on 04-02-2022 Calcium [Mass/Vol] 9.2 mg/dL 8.5-10.1 [facility] Work Phone: Serum or plasma creatinine m easurement (mass/volume)on 04-02-2022 Creatinine [Mass/Vol] 0.96 mg/dL 0.55-1.02 [facility] Work Phone: Comment on above: The validity of the calculated GFR & GFRAA in patients over 70 years has not been determined. Clinical correlation is essential. Serum or plasma urea nitroge n measurement (mass/volume)on 04-02-2022 Urea nitrogen [Mass/Vol] 22 mg/dL 7-18 [facility] Work Phone: Thin prep Papanicolaou smear with manual screeningon 04-02-2022 Thin prep Papanicolaou smear with manual screening 3 5-15 [facility] Work Phone: CNOVon 01-11-2021 CNOV Office Visit (FAMPWS) HYACINTH CORRIGAN ([id number]) 1965 F Date Time Provider Department 01/11/21 [...] 4th and 5th fingers. 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 Hx of R thoracic syndrome. Lots of [...] 4 - (more content not included)... Normal [facility] CNCOon 01-04-2021 CNCO Letter Text Normal [facility] Comp Metabolic Panelon 01-03 Albumin [Mass/Vol] 4.3 g/dL Normal 3.9-4.9 [facility] Comment on above: Performed By: #### C KESHA, LIPB ####[facility] [address] [place], [place] [phone] ALP [Catalytic activity/Vol] 64 U/L Normal 34-123 [facility] Comment on above: Performed By: #### C MP, LIPB ####[facility] [address] [place], [place] [phone] ALT [Catalytic activity/Vol] 28 U/L Normal 7-38 [facility] Comment on above: Performed By: #### C MP, LIPB ####[facility] [address] [place], [place] [phone] Anion gap [Moles/Vol] 8 mmol/L Low 9-18 [facility] Comment on above: Performed By: #### C MP, LIPB ####[facility] [address] [place], [place] [phone] AST [Catalytic activity/Vol] 28 U/L Normal 13-35 [facility] Comment on above: Performed By: #### C MP, LIPB ####[place] [address] [address] [place] [phone] Bilirubin [Mass/Vol] 0.5 mg/dL Normal 0.2-1.3 [facility] Comment on above: Performed By: #### C MP, LIPB ####[place] [address] [address] [place] [phone] Calcium [Mass/Vol] 9.4 mg/dL Normal 8.5-10.2 [facility] Comment on above: Performed By: #### C KESHA, LIPB ####[place] [address] [place] [phone] Chloride [Moles/Vol] 106 mmol/L High 97-105 [facility] Comment on above: Performed By: #### C KESHA, LIPB ####[place] [address] [address] [place] [phone] CO2 [Moles/Vol] 28 mmol/L Normal 22-30 [facility] Comment on above: Performed By: #### C KESHA, LIPB ####[place] [address] [address] [place] [phone] Creatinine [Mass/Vol] 0.86 mg/dL Normal 0.58-0.96 [facility] Comment on above: Performed By: #### C KESHA, LIPB ####[place] [address] [address] [place] [phone] eGFR- Amer. >60 Normal [facility] Comment on above: Performed By: #### C KESHA, LIPB ####[place] [address] [address] [place] [phone] eGFR-All Other Races >60 Normal [facility] Comment on above: Result Comment: eGFR (Estimated GFR) Units of measure: mL/min/1.73 meters squared eGFR is derived from the reexpressed MDRD Study equation using the following parameters: serum creatinine, age, gender and race. The creatinine assay has been calibrated to be traceable to IDPR. An eGFR <60 mL/min/1.73m2 for >3 months is consistent with chronic kidney disease. Refer to KDOQI guidelines for clinical interpretation. In patients with unstable renal function, e.g. those with acute kidney injury, the eGFR may not accurately reflect actual GFR. Performed By: #### C KESHA, LIPB ####[facility], [place] [phone] Glucose [Mass/Vol] 104 mg/dL High 74-99 [facility] Comment on above: Result Comment: The [place] [employer] Association (ADA) provides guidance for cutoff [...] Standards of Medical Care in Diabetes 2016, [place] [employer]. Diabetes Care. 2016.39(Suppl 1). Performed By: #### C KESHA, LIPB ####[facility], [place] [phone] Potassium [Moles/Vol] 4.2 mmol/L Normal 3.7-5.1 [facility] Comment on above: Performed By: #### C KESHA, LIPB ####[facility] [address] [place], [place] [phone] Protein [Mass/Vol] 7.4 g/dL Normal 6.3-8.0 [facility] Comment on above: Performed By: #### C KESHA, LIPB ####[facility] [address] [place], [place] [phone] Sodium [Moles/Vol] 142 mmol/L Normal 136-144 [facility] Comment on above: Performed By: #### C MP, LIPB ####[place] [address] [address], [place] [phone] Urea nitrogen [Mass/Vol] 20 mg/dL Normal 7-21 [facility] Comment on above: Performed By: #### C MP, LIPB ####[address] [address] [phone] Lipid Panel, [facility] 021 Cholesterol [Mass/Vol] 150 mg/dL Normal <[address] [facility] Comment on above: Result Comment: <200 mg/dL, Desirable 200-239 mg/dL, Borderline high >239 mg/dL, High Performed By: #### C MP, LIPB ####[address] [phone] Cholesterol in HDL [Mass/Vol] 64 mg/dL Normal >39 [facility] Comment on above: Result Comment: 40-5 9 mg/dL, Acceptable >59 mg/dL, High: Negative risk factor for coronary heart disease <40 mg/dL, Low: Positive risk factor for coronary heart disease Performed By: #### C MP, LIPB ####[address] [phone] Cholesterol in LDL [Mass/Vol] 79 mg/dL Normal <100 [facility] Comment on above: Result Comment: <100 mg/dL, Optimal 100-129 mg/dL, Near optimal/above optimal 130-159 mg/dL, Borderline high 160-189 mg/dL, High >189 mg/dL, Very high Secondary prevention optimal LDL Cholesterol levels are recommended to be < 70 mg/dL Performed By: #### C MP, LIPB ####[place] [address] [place], [place] [phone] Fasting Time 14 hrs Normal [facility] Comment on above: Performed By: #### C MP, LIPB ####[address] [phone] LDL:HDL Ratio 1.23 Normal <2.54 [facility] Comment on above: Result Comment: Ashwin goldstein: 1. National Cholesterol Education Program ATP III Guideline At-A-Glance Quick Desk Reference: National Heart, Lung, and Blood [place]. National Institutes of Health. 2001: NIH Publication No. 01-3305. 2. An International Atherosclerosis Society position paper: global recommendations for the management of dyslipidemia: executive summary, Atherosclerosis. 2014: 232(2):410-413. Performed By: #### C MP, LIPB ####[place] [phone] Non HDL Cholesterol 86 mg/dL Normal <130 [facility] Comment on above: Result Comment: <130 mg/dL, Optimal 130-159 mg/dL, Near optimal/above optimal 160-189 mg/dL, Borderline high 190-219 mg/dL, High >219 mg/dL, Very high Secondary prevention optimal non HDL Cholesterol levels are recommended to be < 100 mg/dL Performed By: #### C MP, LIPB ####[place] [phone] TC:HDL Ratio 2.34 Normal <5.10 [facility] Comment on above: Performed By: #### C MP, LIPB ####[place] [phone] Triglyceride [Mass/Vol] 36 mg/dL Normal <150 [facility] Comment on above: Result Comment: <150 mg/dL, Normal 150-199 mg/dL, Borderline high 200-499 mg/dL, High >499 mg/dL, Very high Performed By: #### C MP, LIPB ####[place] [phone] VLDL Cholesterol 7 mg/dL Normal <30 [facility] Comment on above: Performed By: #### C MP, LIPB ####[place] [phone] [facility] 12-28-2020 [facility] HNO ID: [id number] Author: Mammography Coordinator Service: ? Author Type: Physician Type: Letter Filed: 01/01/2021 11:32 PM Note Text: December 28, 2020 PID: [id number] Hyacinth Corrigan [address] [place] [address] Dear Luther SeoShekhar, We are pleased to inform you that [...] report will be kept on file at [facility] as part of your permanent medical record and are available for your continuing care. Thank you for allowing us to help in meeting your health care needs. Sincerely, Dr. Jimenez Interpreting Radiologist [facility] (Normal over 40) Normal [facility] CNOVon 12-28-2020 CNOV Office Visit (OBGYWM) SHEKHARHYACINTH HANDY ([id number]) 1965 F Date Time Provider Department 12/28/20 3:30 PM ANNA AMADOR (DENTAL FRONT OFFICE ASSISTANT) OBGYWM During your visit today, we recorded the following information about you: Blood pressure Weight Height 120/82 88 kg 1.651 m Anna Amador APRN.CNP 12/28/2020 3:45 PM Signed Hyacinth is a 55 year old who presents for an annual gynecologic exam without complaints. Has had hiatal hernia for 14 years and now thinks it needs to be repaired. 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 Plans to make appointment with PCP. Postmenopausal:?Yes since age?51 HRT use:?No. Last Pap:?2014?normal?? HPV:?2015?negative History of abnormal pap:?No Last mammogram:??today?pe [...] external genitalia normal, normal Bartholin's glands, urethra, [place]'s glands, no vulvar lesions, no cervical lesions, [...] calcium requirem (more content not included)... Normal [facility] Raghu 12-28-2020 SVETA Telephone (FAMPWS) HYACINTH [id number]) 1965 F Date Time Provider Department 12/28/20 GREGG LY III During your visit today, we recorded the following information about you: Mita Quigley Pss 12/28/2020 4:01 PM Signed Patient is scheduled for physical 01/11 and requesting lab orders. Please route back to planner/scheduler for lab appointment once orders are placed. 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] Order(s):LIPID PANEL BASIC [SQLIPB] Order #: [id number] FUTURE COMP METABOLIC PANEL [SQCMP] Order #: [id number] FUTURE Prescriptions as of 12/28/2020 Sig: PANTOPRAZOLE [...] Encounter Status:Closed by EMELY VILLALTA on 12/30/20 [facility] HYACINTH CORRIGAN ([id number]) 1965 F Date Time Provider Department 12/28/20 ANNA AMADOR ([facility]) RDXWS During your visit today, we recorded the following information about you: Marshall Muhammad Tech 12/28/2020 10:35 AM Signed Please file orders for a screening mammogram for this patient's mammogram today. Thanks Maira Samaniego LPN 12/28/2020 10:37 AM Signed See pended order below. Maira Samaniego LPN Allergies As of Date: 12/28/2020 Noted Allergy [...] mammogram for malignant neoplasm of breast [Z12.31] Order(s):[facility] SCREENING [5829023] Order #: [id number] FUTURE Prescriptions as of 12/28/2020 Sig: PANTOPRAZOLE [...] by HAYDEN SIMMONS RN on 12/28/20 Normal [facility] HPV w/Genotypeon 12-28-2020 HPV HighRisk Other Negative for HPV DNA high risk types: 31,33,35,39,45,51,52 ,56,58,59,66,68 by PCR. Normal [facility] Comment on above: Result Comment: This test was developed and its performance characteristics determined by [facility]'s [facility] Pathology and Laboratory Medicine [place] ([facility] It has not been cleared or approved by the FDA. [facility] is regulated under CLIA as qualified to perform high-complexity testing. This test is used for clinical purposes. It should not be regarded as investigational or for research. Performed By: #### H PVHRR ####[facility] [place], [place] [phone] HPV HighRisk Type 16 Negative Normal [facility] Comment on above: Performed By: #### H PVHRR ####[facility] [place], [place] [phone] HPV HighRisk Type 18 Negative Normal [facility] Comment on above: Performed By: #### H PVHRR ####[facility] [address] [place], [place] [phone] CODIE SCREENINGon 12-28-2020 CODIE SCREENING * * *Final Report* * * DATE OF EXAM: Dec 28 2020 3:11PM ARSENIO 0581 - [facility] SCREENING / PROCEDURE REASON: Encounter for screening mammogram for malignant neoplasm of breast * * * * Physician Interpretation * * * * RESULT: #[id number] - [facility] SCREENING BILATERAL DIGITAL SCREENING MAMMOGRAM WITH CAD: [...] mammogram, 05/21/2018 mammogram, and 03/06/2017 mammogram - [facility]. The tissue of both breasts is predominantly fatty. No significant masses, calcifications, or other findings are seen in either breast. There has been no significant interval change. IMPRESSION: NEGATIVE There is no mammographic evidence of malignancy. A 1 year screening mammogram is recommended. Marlee christian/ann:12/28/2020 15:23:42 Rehab Aide(s): RT Mira(Bryan)(M), [facility] letter sent: Normal over 40 Mammogram BI-RADS: [...] Health, Family Medicine, and Medical/Surgical Oncology, the [facility] has carefully reviewed the data and [...] their providers when to stop screening mammograms. Chair Maker: Ann Transcribe Date/Time: Dec 28 2020 2:53P Dictated by: MARLEE JIMENEZ MD This examination was interpreted and the report reviewed and electronically signed by: MARLEE JIMENEZ MD on Dec 28 2020 3:23PM EST [id number] Normal [facility] OBSOLETEon 12-03-2020 OBSOLETE Refill (FAMPWS) HYACINTH CORRIGAN ([id number]) 1965 F Date Time Provider Department 12/03/20 GREGG LY III During your visit today, we recorded the following information about you: Selma Rojas Ma 12/04/2020 11:10 AM Signed Last office visit: 04/25/20 F/u scheduled: ;none Selma Simon DNP.DENTAL FRONT OFFICE ASSISTANT, REGIONAL SALES MANAGER.DENTAL FRONT OFFICE ASSISTANT 12/04/2020 4:09 PM Signed The following approved [...] insurance Encounter Status:Closed by BOOGIE SIMON DNP DENTAL FRONT OFFICE ASSISTANT on 12/04/20 Normal [facility] CORONAVIRUS PCR [CCL]on 08-03 COVID 19 Result FAMILY PRACTICE DOCTOR Negative Normal [facility] Comment on above: Result Comment: Nega tive for COVID19 (SARS CoV2) by PCR. This test was developed and its performance characteristics determined by [facility]'s [facility] Pathology and Laboratory Medicine [place]. This test has been authorized by FDA under an Emergency Use Authorization (EUA). This test has been validated in accordance with the FDA's Guidance Document Policy for Diagnostics Testing in Laboratories Certified to Perform High Complexity Testing under CLIA prior to Emergency use Authorization for Coronavirus Disease 2019 during the Public Health Emergency issued on January 01, 2020. [facility] [address] [place] [address] Sixto Lopez III, M.D. [id number] Performed By: #### 2 [id number] #### [facility],[address] [place] [address] COVID 19 Source FAMILY PRACTICE DOCTOR FAMILY PRACTICE DOCTOR SWAB Normal [facility] Comment on above: Performed By: #### 2 [id number] #### [facility],[address] [place], [place] [phone] Final Surgical Pathology Rep [facility] 10-19-2019 Final Surgical Pathology Report . Pathology Reports Accession: Collected Date/Time: Received Date/Time: Pathologist: [id number] 10/15/2019 10:25 EST 10/18/2019 10:25 EST DO KATHRYN QUIROZ Final Surgical Pathology Report DIAGNOSIS: NEUROMA, RIGHT FOOT. COMMENT: [facility] - A# [id number] CLINICAL INFORMATION: NEUROMA OF RIGHT FOOT SPECIMEN: A NEUROMA RIGHT FOOT GROSS DESCRIPTION: Received in formalin labeled with the patient's name is a 2.5 x 0.7 x 0.4 cm portion of bradford rubbery tissue. TS - 1 Dictated by Ivania PANDA ([facility]) MICROSCOPIC DESCRIPTION: Slides reviewed. Electronically Signed by Pathology Report verified by [facility] Electronically signed by KATHRYN QUIROZ DO Sign out Date: 10/19/2019 15:19 Performing Lab: [facility], [address] [place] [id number] [place] [address] ([place]) Comment on above: Performed By: #### S PFR #### [facility] [address] [place] [address] HISTORY AND PHYSICALon 10-18 HISTORY AND PHYSICAL [facility] HISTORY & PHYSICAL NAME ACCOUNT SEX AGE ADMIT DISCHARGE PT MED. RECORD# NUMBER DATE DATE TYPE SHEKHAR [id number] F 54 10/14/19 2 HYACINTH Peralta [id number] ROOM: DATE OF : 61 DICTATING PHYSICIAN: [...] signed. PLAN: The patient will present to [facility] the morning of Friday the 15 October 2019 for outpatient surgical intervention. Dictated By: Leticia Michael DPM 10/14/19 21:28 JOB #: [id number] Transcribed By: am 10/15/19 00:26 Electronically signed [...] 2 HYACINTH CORRIGAN History & Physical Normal [facility] OPERATIVE PROCEDURESon 10-18 OPERATIVE PROCEDURES [facility] OPERATIVE REPORT NAME ACCOUNT SEX AGE ADMIT DISCHARGE PT MED. RECORD# NUMBER DATE DATE TYPE SHEKHAR [id number] F 54 10/15/19 10/15/19 2 HYACINTH Peralta [id number] ROOM: [facility] DATE OF : 1965 DICTATING PHYSICIAN: Leticia Michael DATE OF SURGERY: October 15, 2019 SURGEON: Leticia Michael DPM CORE MAKER: None. ANESTHESIOLOGIST: Lisa Mccabe CRNA, David Hill [...] bleeding Page 1 of 2 HYACINTH CORRIGAN Operative Report HYACINTH CORRIGAN : 1965 vessels [...] Postoperative prescription for pain was written for Sewell. She should take as directed. Dictated By: Leticia Michael DPM 10/15/19 09:46 JOB #: [id number] Transcribed By: cody 10/15/19 21:39 Electronically signed by: E-SIGN LETICIA MICHAEL 10/18/19 14:22 Page 2 of 2 HYACINTH CORRIGAN Operative Report Normal [facility] BUNon 10-07-2019 Urea nitrogen [Mass/Vol] 15 mg/dL Normal 6 - 20 [facility] Comment on above: Performed By: #### 2 [id number] #### [facility],[address] [place] [address] GLUCOSEon 10-07-2019 Glucose [Mass/Vol] 100 mg/dL Normal 74 - 106 [facility] Comment on above: Performed By: #### 2 [id number] #### [facility],[address] [place] [address] HEMOGLOBINon 10-07-2019 Hemoglobin (Bld) [Mass/Vol] 13.7 g/dL Normal 12.0 - 16.0 [facility] Comment on above: Performed By: #### 2 [id number] #### [facility],[address] [place] [address] Encounters Encounter Date Encounter Type Care Provider Facility Start: 08-22-2025 ambulatory [facility] y:[facility] Start: 05-24-2025 Encounter for genera l adult medical examination without abnormal findings Bandar Ricks [facility] Start: 05-19-2025 End: 05-19-[address] Bandar Ricks MD Work Phone: -[facility] Start: 05-19-2025 End: 05-19-[address] Bandar Ricks MD -[facility] Work Phone: Start: 05-19-2025 End: 05-19-2025 ambulatory Bandar Ricks Facility:[facility] Start: 05-13-2025 ambulatory Bandar Ricks Facility:[facility] Start: 11-16-2024 End: 11-16-2024 ambulatory Bandar Ricks Facility:[facility] Start: 10-20-2024 End: 10-20-2024 ambulatory Bandar Ricks Facility:[facility] Start: 11-14-2023 End: 11-14-2023 ambulatory [facility] Work Phone: Start: 11-14-2023 End: 11-14-[address] [facility] Start: 10-13-2023 End: 10-13-2023 ambulatory [facility] Work Phone: Start: 10-13-2023 End: 10-13-2023 Patient encounter procedure [facility]-Outpatient Breast Imaging Work Phone: Start: 05-12-2023 End: 05-12-2023 ambulatory [facility] Work Phone: Start: 05-12-2023 End: 05-12-2023 Patient encounter procedure [facility] Work Phone: Start: 11-11-2022 End: 11-11-2022 ambulatory [facility] Work Phone: Start: 11-11-2022 End: 11-11-2022 Patient encounter procedure [facility] Start: 10-30-2022 End: 10-30-2022 ambulatory [facility] Work Phone: Start: 10-30-2022 End: 10-30-2022 Patient encounter procedure [facility] Start: 08-19-2022 End: 08-19-2022 ambulatory [facility] Work Phone: Start: 08-19-2022 End: 08-19-2022 Patient encounter procedure [facility]-Outpatient Breast [facility] Start: 04-24-2022 End: 04-24-2022 [facility] Start: 04-02-2022 End: 04-02-2022 Patient encounter procedure [facility] Start: 08-10-2020 End: 08-10-2020 Patient encounter procedure BLANQUITA AMADOR [facility] Start: 10-15-2019 End: 10-15-2019 Patient encounter procedure LETICIA ALEXIS [facility] Start: 10-07-2019 End: 10-07-2019 Patient encounter procedure LETICIA ALEXIS [facility] Procedures Date Procedure Procedure Detail Performing Clinician Start: 10-13-2023 Screening mammography Start: 08-19-2022 Screening mammography Urine culture Plan of Treatment Date Care Activity Detail Author Human papilloma viru s 16+18+31+33+35+39+45+51+52+56+58+59+68 DNA [Presence] in Cervix by Probe with signal amplification [facility] Work Phone: Immunizations Immunization Date Immunization Notes Care Provider Fa cility 02-08-2021 Covid (Pfizer) [facility] 01-18-2021 Covid (Pfizer) [facility] Payers Date Payer Category Payer Self-pay [id number] 2024 Unknown [id number] 1965 Unknown [id number] 2.16.84 [id number] 1965 Unknown [id number] 2.16.84 [id number] 1965 Unknown [id number] 2.16.84 [id number] Unknown [id number] Unknown [id number] 2.16.8 [id number] Unknown [id number] 2.16.8 [id number] Unknown [id number] 2.16.8 [id number] Unknown [id number] 2.16.8 [id number] Unknown [id number] 2.16.8 [id number] Unknown [id number] 2.16.8 [id number] Social History Date Type Detail Facility Start: 12-01-2016 End: 12-01-2016 Tobacco smoking status NHIS Unknown if ever smoked [facility] Start: 1965 Sex Assigned At Female W [facility] Start: 12-01-2016 Tobacco smoking stat us NHIS Never smoked tobacco (finding) [facility] Clinical Notes 12-28-2020 to 04-24-2022 Note Date & Type Note Facility 04-24-2022 Note [facility] Work Phone: Pap Smear Specimen Adequacy April 24, 2022 11:20am Comment . Satisfactory for evaluation. Endocervical and/or squamous metaplasticcells (endocervical component) are present. Comment on above: Satisfactory for carlos luation. Endocervical and/or squamous metaplasticcells (endocervical component) are present. 09-18-2021 Note Patient Outreach (NE TNAV) HYACINTH CORRIGAN ([id number]) 1965 F Date Time Provider Department 09/18/21 NELY NEELY During your visit today, we recorded the following information about you: Nely Neely Population Health Navigator 09/18/2021 10:44 AM Signed POPULATION HEALTH NAVIGATION OUTREACH Action/FYI I left a voice mail and a my chart message re: pcp No care everywhere Contact made with patient or family member? NO Pt identified by name and : NO Outreach Outcome/Action Unable to reach patient: Left message [employer] message sent Reason for Outreach Attribution: Provider Off-boarding Payer: Payor: COLEEM / Plan: BLUE ACCESS PPO / Product Type: PPO / Care Gap Reviewed:: Reminder: Reminder note to check Health Maintenance for items below Health Maintenance items due: COVID-19 VACCINE(1) Never done SHINGRIX VACCINE(1 of 2) Never done INFLUENZA(1) due on 07/04/2021 Advanced Directives Completed: Have you ever planned for future healthcare decisions with a power of commonwealth attorney, living will, or advance directives? No. Please bring a copy to your next appointment or email to [email or web address] Referrals: N/A Message Sent to Practice: NO Navigation Signature: Nely Neely Population Health Navigator September 18, 2021 10:44 AM [facility] 09/18/2021 11:43 AM Signed POPULATION HEALTH NAVIGATION OUTREACH Action/FYI Patient called back and states she has another pcp since her insurance has changed Updated pcp field Contact made with patient or family member? YES Pt identified by name and : YES Outreach Outcome/Action Spoke to patient or caregiver: PCP confirmed / updated Patient declined Reason for Outreach Attribution: Provider Off-boarding Payer: Payor: MP / Plan: 2NDNATURE PPO / Product Type: PPO / Care Gap Reviewed:: Reminder: Reminder note to check Health Maintenance for items below Health Maintenance items due: COVID-19 VACCINE(1) Never done SHINGRIX VACCINE(1 of 2) Never done INFLUENZA(1) due on 07/04/2021 Advanced Directives Completed: Have you ever planned for future healthcare decisions with a power of commonwealth attorney, living will, or advance directives? No. Please bring a copy to your next appointment or email to MD [email or web address] Referrals: N/A Message Sent to Practice: NO Navigation Signature: Nely Neely [facility] Health Navigator September 18, 2021 11:42 AM [...] outlet syndrome [G54.0] 01/11/2021 Encounter Status:Closed by LULA POPULATION HEALTH NAVIGATOR, NELY Zamudio on 09/18/21 [facility] 09-18-2021 Note HNO ID: [id number] Author: Nely Neely Population Health Navigator Service: [...] future healthcare decisions with a power of commonwealth attorney, living will, or advance directives? No. Please bring a copy to your next appointment or email to Referrals: N/A Message Sent to Practice: NO Navigation Signature: Nely Neely Population Health Navigator September 18, 2021 11:42 AM [facility] 09-18-2021 Note HNO ID: [id number] Author: Nely Neely Population Health Navigator Service: ? Author Type: ? Type: Progress Notes Filed: 09/18/2021 10:44 AM Note Text: POPULATION HEALTH NAVIGATION OUTREACH Action/ I left a voice mail and a my chart message re: pcp No care everywhere Contact made with patient or family member? NO Pt identified by name and : NO Outreach Outcome/Action Unable to reach patient: Left message [employer] message sent Reason for Outreach Attribution: Provider [...] future healthcare decisions with a power of commonwealth attorney, living will, or advance directives? No. Please bring a copy to your next appointment or email to [email or web address] Referrals: N/A Message Sent to Practice: NO Navigation Signature: Nely Neely Population Health Navigator September 18, 2021 10:44 AM [facility] 01-15-2021 Note Patient Outreach ([facility]) HYACINTH CORRIGAN ([id number]) 1965 F Date Time Provider Department 01/15/21 BRIANNA DARBY ([facility]) INTMAC During your visit today, we recorded the following information about you: Brianna Darby [facility] 01/15/2021 10:35 AM Signed POPULATION HEALTH NAVIGATION [...] future healthcare decisions with a power of commonwealth attorney, living will, or advance directives? Referrals: [...] Encounter Status:Closed by BRIANNA LANDRY on 01/15/21 [facility] 01-15-2021 Note HNO ID: [id number] Author: Brianna Espinoza Service: ? Author Type: ? Type: Progress Notes Filed: 01/15/2021 10:35 AM Note Text: POPULATION HEALTH NAVIGATION OUTREACH Action/FYI Mamm completed 12/28/20. No need to contact. Contact made with patient or family member? NO Pt identified by name and : NO Outreach Outcome/Action Mamm completed 12/28/20. Reason for Outreach Care Gap or Scheduling/Wellness visits Payer: Payor: COLEEM / Plan: 2NDNATURE PPO / Product Type: PPO / Care Gap Reviewed:: Breast Cancer screening Reminder: Reminder note to check Health Maintenance for items below Health Maintenance items due: INFLUENZA(1) due on 07/04/2020 Advanced Directives Completed: Have you ever planned for future healthcare decisions with a power of commonwealth attorney, living will, or advance directives? Referrals: Message Sent to Practice: Navigation Signature: Brianna Espinoza January 15, 2021 10:34 AM [facility] 01-11-2021 Note HNO ID: [id number] Author: Gregg Ly III Service: ? Author [...] 4th and 5th fingers. 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 Hx of R thoracic syndrome. Lots of [...] 4 - Moderate Gregg Ly III MD [facility] 12-28-2020 Note ADDITIONAL PROCEDURES PRESENT Specimen originated from [facility] Specimen #: [id number] Submitting Physician: ANNA AMADOR CNP SPECIMEN SUBMITTED A: CERVICAL, SCREENING, FLUID _ FINAL DIAGNOSIS A. CERVICAL, SCREENING, FLUID Satisfactory for interpretation. Negative for intraepithelial lesion or malignancy. This specimen has been analyzed by the ThinPrep Imaging System, an automated imaging and review system, which assists the laboratory in evaluating cells on ThinPrep Pap tests. Following automated imaging, selected clark from every slide are reviewed by a commutator tester. YARELY Patel(ASCP) (Electronic Signature) _ ADDITIONAL PROCEDURE(S) HUMAN PAPILLOMA VIRUS Date Ordered: 01/01/2021 Date Reported: 01/02/2021 Procedure Results and Interpretation Negative for HPV DNA high risk type 16 by PCR. Negative for HPV DNA high risk type 18 by PCR. Negative for HPV DNA high risk types: 31,33,35,39,45,51,52,56,58,59,66, 68 by PCR. This test was developed and its performance characteristics determined by [facility] [place] ([facility] It has not been cleared or approved by the FDA. [facility] is regulated under CLIA as qualified to perform high-complexity testing. This test is used for clinical purposes. It should not be regarded as investigational or for research. CLINICAL DATA ROUTINE EXAM, HPV Testing: Yes, automatic HPV patients over 30 Date of Last Menstrual Period: Postmenopausal STAINS A: CERVICAL, SCREENING, FLUID THIN PREP VOLCANOLOGY PROFESSOR Mario Dumont M.D., Applications Manager Date of Report: 01/04/2021 Date of Procedure: 12/28/2020 Date of Receipt: 01/01/2021 Submitted by: ANNA AMADOR CNP Location: [facility] Diagnostic interpretation performed at [facility], [address] [place] [address]. CLIA Number: [id number] The Pap Smear is a screening test for cervical cancer. False negative results occur with all screening tests, emphasizing the need for rescreening at recommended intervals, and clinical correlation. [facility] 12-28-2020 Note HNO ID: [id number] Author: Anna Amador Service: ? Author Type: [...] both eyes - COLONOSCOP W/ OR W/O [facility] SPEC 12/07/15 Colonoscopy - EGD W/O [facility] SPECIMEN W/BX 2002 Hiatal hernia, minimal [...] external genitalia normal, normal Bartholin's glands, urethra, [place]'s glands, no vulvar lesions, no cervical lesions, [...] year or sooner as needed Anna Amador APRN.[facility] 12-28-2020 Note HNO ID: [id number] Author: Marshall Dunbar (Tech) Service: ? Author Type: Director Workers Compensation Type: Progress Notes Filed: 12/28/2020 3:07 PM [...] Marshall Dunbar December 28, 2020 2:46 PM [facility] Evaluation note No assessment inform ation available [facility] Work Phone: Reason for referral (narrative) No reason for referral information available [facility] Work Phone: Summary Purpose Family History No Family History Records FoundNo Family History Records FoundNo Family History Records FoundNo Family History Records Found Advance Directives No Advanced Directives Records Found Advance Directive Response Recorded Date/ Time Advance Directives No December 01, 2016 1:53pm Living Will No December 01 1:53pm Power of Quality Audit Representative No December 01, 2016 1:53pm Advance Directive Response Recorded Date/ Time Advance Directives No December 01, 2016 12:53pm Living Will No December 01 12:53pm Power of Quality Audit Representative No December 01, 2016 12:53pm Advance Directive Response Recorded Date/ Time Advance Directives No December 01, 2016 1:53pm Chief Complaint and Reason for Visit Chief Complaint EORDER Chief Complaint SCREENING Chief Complaint SCREENING eorder Chief Complaint SCREENING eorder EORDER Chief Complaint Admit Date E ORDER May 19, 2025 8:57 am E ORDER May 19, 2025 9:00 am Additional Source Comments INFORMATION SOURCE (unrecogn ized section and content) DATE CREATED AUTHOR 10/20/2019 [facility] ([place]) DATE CREATED AUTHOR AUTHOR'S ORGANIZ ATION 08/17/2020 [facility] DATE CREATED AUTHOR AUTHOR'S ORGANIZ ATION 11/25/2021 [facility] DATE CREATED AUTHOR AUTHOR'S ORGANIZ ATION 08/20/2025 [facility] Goals (unrecognized section and content) Goals may [...] Dates Dr. Bandar Ricks MD Primary Care Provi heriberto, Attending Provider, Referring Provider Active Team Status: Active Member Role/Relationship Status Dates Dr. Gregg Ly III, MD Family Provider Active Dr. Bandar Ricks MD Primary Care Provider Active Team Status: Active Member Role/Relationship Status Dates Dr. Bandar Ricks MD Primary Care Provider Active Start: May 19, 2025 Dr. Bandar Ricks MD Attending Provider Active Start: May 19, 2025 Dr. Bandar Ricks MD Referring Provider Active Start: May 19, 2025 Team Status: Inactive Member Role/Relationship Status Dates Dr. Bandar Ricks MD Primary Care Provider Active Start: May 19, 2025 End: May 19, 2025 Dr. Bandar Ricks MD Attending Provider Active Start: May 19, 2025 End: May 19, 2025 Dr. Bandar Ricks MD Referring Provider Active Start: May 19, 2025 End: May 19, 2025 Team Status: Inactive Member Role/Relationship Status Dates Dr. Bandar Ricks MD Primary Care Provider Active Start: May 19, 2025 End: May 19, 2025 Dr. Bandar Ricks MD Attending Provider Active Start: May 19, 2025 End: May 19, 2025 Dr. Bandar Ricks MD Referring Provider Active Start: May 19, 2025 End: May 19, 2025 FOR RECORDS PERTAINING TO PATIENTS WHO ARE [...] BE BASED ON THE PRIMARY CLINICAL RECORDS. [facility]. provides no warranty or guarantee of the accuracy or completeness of information in this document.
--- NOTE | 2025-08-22 07:56 | PRE.ANES_ITS ---
ASA Classification* ASA Classification ASA Classification: 2 Assessment & Plan Anesthesia* Anesthesia Assessment Anesthesia Assessment: Discussed sedation and/or anesthesia options, risks, benefits, and alternatives with patient/parents/legal guardian/POA. Questions invited. The patient/parents/legal guardian/POA seems to understand and agrees to proceed with anesthesia plan. Reviewed the physical assessment, medical history, allergy history and patient home medications list prior to surgery/procedure/anesthetic and documented any changes. Performed airway and anesthesia risk assessments. Anesthesia Type Anesthesia Type: MAC Anesthesia Focused Assessment* Airway Assessment Mouth opens: >3 cm Mallampati Score: II Labs Anesthesia Preop lab: CBC WBC, (4.4-11.0) 8.0 K/mm3 12/01/16, 13: RBC, (4.2-5.4) 4.61 M/mm3 12/01/16, 13: Hgb, (12.0-15.0) 13.8 g/dl 12/01/16, 13: Hct, (37-47) 41.2 % 12/01/16, 13: Plt Count, (150-450) 270 K/mm3 12/01/16, 13:28 CHEMISTRY Potassium, (3.3-5.1) 4.0 mmol/L 05/19/25, 09:17 Sodium, (133-145) 140 mmol/L 05/19/25, 09:17 BUN, (4-19) 17 mg/dL 05/19/25, 09:17 Creatinine, (0.70-1.20) 0.92 mg/dL 05/19/25, 09:17 Glucose, (70-99) 93 mg/dL 05/19/25, 09:17 COAG Pre-Assessment Diagnosis/Proposed Procedure Planned Operative Procedure(s): COLONOSCOPY-OA Anesthesia History Anesthesia History - life insurance specialist: Anesthesia History - life insurance specialist Hx Hospitalization No 08/19/25 08:48 Any Problems With Anesthesia Yes: N&V 08/19/25 08:48 Cholinesterase deficiency No 08/19/25 08:48 You/Your Family Experience No 08/19/25 08:48 fever (hyperthermia) with Relationship Recent Exposure to Contagious Disease Does patient have nerve No 08/19/25 08:48 stimulator Patient instructed to have device shut off --Does patient have Pacemaker or ICD? When Was Last Pacemaker Check QUESTION #4 FULL TEXT: You/Your Family Experience fever (hyperthermia) with Anesthesia Last Oral Intake Last Oral intake: Last Oral Intake NPO since Meds taken in AM with sips of water? Meds patient instructed to take am of surgery PONV PONV - life insurance specialist: PONV - life insurance specialist Female Yes 08/19/25 08:48 HX of Motion Sickness No 08/19/25 08:48 HX of N/V After Surgery Yes 08/19/25 08:48 Non-Smoker No 08/19/25 08:48 Duration of Surgery greater No 08/19/25 08:48 than 60 minutes Number of Risk Factors 2 08/19/25 08:48 PONV Score Moderate Risk 08/19/25 08:48 Respiratory Assessment Respiratory Assessment - life insurance specialist: Respiratory Tract Infection Hx - life insurance specialist Hx Respiratory Tract Infection No 08/19/25 08:48 STOP Sleep Apnea STOP Sleep Apnea - life insurance specialist: STOP Sleep Apnea - life insurance specialist Hx Hypertension Yes: CONTROLLED ON MED 08/19/25 08:48 Hx Sleep Apnea No 08/19/25 08:48 CPAP BIPAP Do you snore loudly (louder No 08/19/25 08:48 than talking or can be heard Do you often feel tired/ No 08/19/25 08:48 fatigued/ sleepy during daytime? Has anyone observed you stop No 08/19/25 08:48 breathing during sleep? STOP Results Negative 08/19/25 08:48 QUESTION #5 FULL TEXT : Do you snore loudly (louder than talking or can be heard through closed doors)? 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 Specify any problems Hx of Preganancy in last 3 No 08/19/25 08:48 Months Nurse Filling Out Transfusion VCHRISTIN 08/19/25 08:48 & Questions: Date: 08/19/25 08/19/25 08:48 Time: 08:49 08/19/25 08:48 Patient unable to answer at this time (ie. confused, unrespo /Reproduction History /Reproductive History - life insurance specialist: /Reproductive Hx- life insurance specialist Hx Now No 08/19/25 08:48 Gestational Age (in weeks): EDC: Hx Hx Para Hx Section SAB No 08/19/25 08:48 Active Medications Active Medications: Current Medications Generic Name Dose Route Start Last Admin Trade Name Freq PRN Reason Stop Dose Admin Lactated Ringer's 1,000 mls @ 15 mls/hr 08/22/25 08:00 IV .Q48H PAULO PFSH Medical History Wears contact lenses Post-menopausal Fatty liver History of hiatal hernia Gastric reflux Non-smoker Hypertension Home Medications ?Medication ?Instructions ?Recorded ?Last Taken ?Type pantoprazole 40 mg tablet,delayed 40 mg PO DAILY 12/01 Unknown History release lisinopril 10 mg tablet 10 mg PO DAILY 08/19/25 Unkn own History Allergy/AdvReac Type Severity Reaction Status Date / Time pseudoephedrine (From AdvReac Other Verified 08/19/25 08:42 Sudafed) Surgical History Hx of bilateral cataract extraction Hx of foot surgery History of laparoscopic cholecystectomy Social History Smoking Status: Never smoker Review of Systems (Anesthesia) ROS Narrative System reviewed and no additional complaints, except as documented.
[2025-08-22] MEDS: Lactated Ringers 1,000 ML 15 ML IV (08:06)
--- NOTE | 2025-08-22 08:32 | HP.PCM_ITS ---
HPI - General General Date of Service: 08/22/25 HPI Narrative VANGIE SANCHEZ, is a 60 F who presents screening colonoscopy last colonoscopy was 10-11 years ago at [facility] negative per patient. Patient's father did have polyps unsure of size. Patient has bowel movements daily denies any blood. Patient denies any chronic abdominal pain/nausea/vomiting/reflux. [facility] Medical History Wears contact lenses Post-menopausal Fatty liver History of hiatal hernia Gastric reflux Non-smoker Hypertension Home Medications ?Medication ?Instructions ?Recorded ?Last Taken ?Type pantoprazole 40 mg tablet,delayed 40 mg PO DAILY 12/0108/22/25 History release lisinopril 10 mg tablet 10 mg PO DAILY 08/19/2508/03 History Allergy/AdvReac Type Severity Reaction Status Date / Time pseudoephedrine (From AdvReac Other Verified 08/22/25 08:00 Sudafed) Surgical History Hx of bilateral cataract extraction Hx of foot surgery History of laparoscopic cholecystectomy Social History Smoking Status: Never smoker Past Medical/Surgical History Planned Operation Planned Operative Procedure(s): COLONOSCOPY-OA Previous Hospitalizations/Surgeries HX Hospitalizations: No Any Problems With Anesthesia: Yes (N&V) You/Your Family Experience Fever (Hyperthermia) With Anes: No Cholinesterase deficiency: No Cardiovascular Hx of Irregular Heartbeat and/or Afib: No Hx Heart Attack: No Hx Congestive Heart Failure: No Hx Hypertension: Yes (CONTROLLED ON MED) Hx Pacemaker: No Respiratory Hx Chronic Obstructive Pulmonary Disease (COPD): No Hx Asthma: No Hx Emphysema: No Hx Sleep Apnea: No Hx Respiratory Tract Infection/Cold (presently): No Do You Snore Loudly (louder than talking or can be heard): No Do You Often Feel Tired/ Fatigued/ Sleepy Dring Daytime?: No Has Anyone Observed You Stop Breathing During Sleep?: No Result (for STOP score): Negative Smoking Status: Never smoker Gastrointestinal Hx Ulcer: No Special diet followed at home: No Neurological Hx Seizures: No Hx Head/Neck Injury: No Hx Headaches: No Hx Back Injury/Pain: No Does patient have nerve stimulator: No Reproduction : No Miscellaneous Recent Exposure to Contagious Disease: No Allergies pseudoephedrine (From expressor softwareafed) Adverse Reaction (Verified 08/22/25 08:00) Other Discharge Is Pt Admitted From a Skilled Nursing, or a Custodial: No After D/C, Where Do you Plan to Go: Return Home Vital Signs Vital Signs Vital Signs: 08/22/25 08:01 08/22/25 08:06 Temperature 97.4 F L Temperature Source Temporal Pulse Rate 90 Respiratory Rate 16 Respiratory Pattern Normal Blood Pressure 117/84 H Blood Pressure Mean 95 Blood Pressure Source Monitor Blood Pressure Position Semi-Fowlers Blood Pressure Location Right Arm Pulse Ox 100 Oxygen Delivery Method Room Air Weight Weight: 185 lb 3.013 oz Body Mass Index (BMI) 30.8 Physical Exam Const alert, oriented x3 and no apparent distress HEENT normocephalic and head/scalp atraumatic Resp normal respiratory effort Cardio regular rate GI soft to palpation and non-tender; Negative for non-distended Palpation: Negative for guarding Extremity no clubbing, cyanosis or edema Skin no rashes or lesions noted Neuro CN's II-XII intact bilaterally Psych mental status grossly normal Assessment & Plan Assessment/Plan (1) Screening for colon cancer: Surgery Risks - Colonoscopy I discussed with the patient the risks of the procedure: Yes Risks Include but are not Limited To: Risks include but are not limited to: Bleeding, perforation requiring further surgery, inability to complete colonoscopy requiring barium enema.
--- NOTE | 2025-08-22 09:15 | OP.PROVAT_ITS ---
08/22/2025 Bandar Ricks MD [address] [id number] Re : Colonoscopy procedure for Hyacinth Corrigan Dear Dr. Ricks This procedure was performed on Friday, August 22, 2025. My impressions and recommendations are as follows: Impressions : - Diverticulosis in the sigmoid colon. - The entire examined colon is normal on direct and retroflexion views. - No specimens collected. Recommendations : - Discharge patient to home. - Resume previous diet. - Continue present medications. - Repeat colonoscopy in 10 years for screening purposes. My findings are described in the full procedure note, which is enclosed. If I can be of further assistance, please feel free to contact me at Doctor phone number(s): , Work: . Sincerely, MD Shaista Costa MD 08/22/2025 9:14:54 AM This report has been signed electronically.
--- NOTE | 2025-08-22 09:15 | OP.COLON_ITS ---
Patient Name: Hyacinth Corrigan Procedure Date: 08/22/2025 8:51 AM Date of : 1965 Age: 60 Procedure: Colonoscopy Indications: Screening for colorectal malignant neoplasm Providers: Shaista Mo MD Referring MD: Bandar Ricks MD Medicines: Monitored Anesthesia Care Patient Profile: This is a 60 year old female. Last Colonoscopy: more than 10 years ago. Complications: No immediate complications. Procedure: Pre-Anesthesia Assessment: - Prior to the procedure, a History and Physical was performed, and patient medications and allergies were reviewed. The patient's tolerance of previous anesthesia was also reviewed. The risks and benefits of the procedure and the sedation options and risks were discussed with the patient. All questions were answered, and informed consent was obtained. Prior Anticoagulants: The patient has taken no anticoagulant or antiplatelet agents. ASA Grade Assessment: Per anesthesia. After reviewing the risks and benefits, the patient was deemed in satisfactory condition to undergo the procedure. After I obtained informed consent, the scope was passed under direct vision. Throughout the procedure, the patient's blood pressure, pulse, and oxygen saturations were monitored continuously. The Colonoscope was introduced through the anus and advanced to the cecum, identified by the appendiceal orifice, ileocecal valve and palpation. The colonoscopy was performed without difficulty. The patient tolerated the procedure well. The quality of the bowel preparation was good. Scope In: 8:57:18 AM Scope Withdrawal Time 0 hours 7 minutes 27 seconds Scope Out: 9:09:05 AM Total Procedure Duration Time 0 hours 11 minutes 47 seconds Findings: The perianal and digital rectal examinations were normal. Scattered small-mouthed diverticula were found in the sigmoid colon. The entire examined colon appeared normal on direct and retroflexion views. Impression: - Diverticulosis in the sigmoid colon. - The entire examined colon is normal on direct and retroflexion views. - No specimens collected. Recommendation: - Discharge patient to home. - Resume previous diet. - Continue present medications. - Repeat colonoscopy in 10 years for screening purposes. Procedure Code(s): --- Professional --- G0121, PT, Colorectal cancer screening; colonoscopy on individual not meeting criteria for high risk Diagnosis Code(s): --- Professional --- Z12.11, Encounter for screening for malignant neoplasm of colon K57.30, Diverticulosis of large intestine without perforation or abscess without bleeding CPT copyright 2021 [employer]. All rights reserved. The codes documented in this report are preliminary and upon automation controls expert review may be revised to meet current compliance requirements. MD Shaista Costa MD 08/22/2025 9:14:54 AM This report has been signed electronically. Number of Addenda: 0 Note Initiated On: 08/22/2025 8:51 AM
--- NOTE | 2025-08-22 09:18 | PCM.POST.ANE ---
Anesthesia: Postop Eval I Current Vital Signs Temperature: 97.5 F Pulse Rate: 75 Blood Pressure: 104/60 Respiratory Rate: 16 Pulse Ox: 99 Oxygen Delivery Method: Room Air Assessment Airway patent: Yes Spontaneous unlabored respirations: Yes Mental status: Asleep nausea: No Vomiting: No Anesthesia Complication: No Fluid Hydration Crystalloid volume administer (ml): 500 Total IV fluid infused: 500 Progress Note Anesthesia document: Postop Eval 1 completed: Yes
--- NOTE | 2025-08-22 12:04 | PCM.POSTANE2 ---
Anesthesia Postop Eval I Sum Postop Eval Completion status Anesthesia document: Postop Eval 1 completed: Yes Anesthesia Postop Eval I Summary Anesthesia Postop Eval I Summary: Anesthesia Postop Eval I: Assessment Summary Airway patent Yes 08/22/25 09:19 [email or web address] Spontaneous unlabored Yes 08/22/25 09:19 [email or web address] respirations Mental status Asleep 08/22/25 09:19 [email or web address] nausea No 08/22/25 09:19 [email or web address] Vomiting No 08/22/25 09:19 [email or web address] Anesthesia Postop Eval I: Fluid Summary Crystalloid volume administer 500 08/22/25 09:19 [email or web address] (ml) Colloids volume administered ( ml) Blood Product volume administered (ml) Total IV fluid infused 500 08/22/25 09:19 [email or web address] Anesthesia Postop Eval I: Summary Notes Anesthesia Complication No 08/22/25 09:19 [email or web address] Anesthesia Complication Comment: Post-operative progress note Anesthesia: Postop Eval II Evaluation Mental status: Awake Pain Level: 0 nausea: No Vomiting: No
== END 2025-08-22 09:54 | disposition home or self-care (01) ==
LOC: EN 07:40 → AC 07:41
PROVIDERS: PCP Family Medicine; Referring Provider Family Medicine; Visit Provider Surgery
PROC: 0DJD8ZZ Inspection of Lower Intestinal Tract, Via Natural or Artificial Opening Endoscopic (ICD-10-PCS; CPT 45378; principal; 2025-08-22 08:55)
DX: Z12.11 Encounter for screening for malignant neoplasm of colon (principal); K57.30 Diverticulosis of large intestine without perforation or abscess without bleeding; I10 Essential (primary) hypertension; K21.9 Gastro-esophageal reflux disease without esophagitis; Z79.899 Other long term (current) drug therapy
CPT/HCPCS: 45378; J2405